=== PATIENT | male | born 1975 | race American Indian/Alaskan Native ===

== ENCOUNTER 2021-08-27 14:09 | Emergency (ER) | payer SELFPAY ==
[2021-08-27] MEDS ORDERED: Sodium Chloride 0.9% 10 ML Syringe FLUSH PRN (14:11)
[2021-08-27] MEDS ORDERED: Sodium Chloride 0.9% 2.5 ML Syringe FLUSH PRN (14:11)
[2021-08-27] MEDS ORDERED: Sodium Chloride 0.9% 1,000 ML IV ONE (14:22)
[2021-08-27] MEDS ORDERED: Ondansetron 4 MG/2 ML SDV IVPUSH ONE (14:23)
[2021-08-27] MEDS ORDERED: Ketorolac 30 MG/ML SDV IVPUSH ONE (14:23)
--- NOTE | 2021-08-27 14:26 | EDM.PDOC ---
ED HPI GENERAL MEDICAL PROBLEM - General Chief Complaint: Chest Pain Stated Complaint: CHEST PAINS Time Seen by Provider: 08/27/21 14:20 Source of Information: Reports: Patient History Limitations: Reports: No Limitations - History of Present Illness INITIAL COMMENTS - FREE TEXT/NARRATIVE: HISTORY AND PHYSICAL: History of present illness: Patient is a 45-year-old male who presents to the emergency room with complaints of nausea, vomiting, diarrhea, chest pain, fevers and body aches over the past 24 hours. He states his temperature prior to arrival was 103 F. He does feel anxious and has a tingling sensation to his fingertips bilaterally. He is fearful he has COVID-19. Chest pain is with taking deep breaths and or coughing. Does not radiate and is not noted at rest. Patient denies any headache, change in vision, syncope or near syncope. Denies any back pain, shortness of breath or cough. Denies any abdominal pain, constipation or dysuria. Has not noted any blood in urine or stool. Patient has not been eating and drinking appropriately today, due to feeling unwell. No recent travel or sick contacts. Review of systems: As per history of present illness and below otherwise all systems reviewed and negative. Past medical history: As per history of present illness and as reviewed below otherwise noncontributory. Surgical history: As per history of present illness and as reviewed below otherwise noncontributory. Social history: See social history for further information Family history: As per history of present illness and as reviewed below otherwise noncontributory. Physical exam: General: Well developed and well nourished 45 year old male. Alert and orientated x 3. Nontoxic in appearance and in no acute distress. Vital signs are stable and have been reviewed by me. Nursing notes were reviewed. HEENT: Atraumatic, normocephalic, pupils equal and reactive bilaterally, negative for conjunctival pallor or scleral icterus, mucous membranes moist, TMs normal bilaterally, throat clear, neck supple, nontender, trachea midline. No drooling or trismus noted. No meningeal signs. No hot potato voice noted. Lungs: Clear to auscultation bilaterally. No wheezes, rales, or rhonchi. Chest nontender. Normal work of breathing, no accessory muscles used. Heart: S1S2, regular rate and rhythm without overt murmur, gallops, or rubs. No JVD. No peripheral edema Abdomen: Soft, nondistended, nontender. Normoactive bowel sounds. Negative for masses or costovertebral tenderness. Skin: Intact, warm, dry. No lesions or rashes noted. Hematologic: No petechiae or purpra. Mucosa appropriate color and normal nail bed color and refill. Extremities: Atraumatic, moves all extremities per self without difficulty or deficits, negative for cords or calf pain. Neurovascular unremarkable. Neuro: Awake, alert, oriented. Cranial nerves II through XII unremarkable. Cerebellum unremarkable. Motor and sensory unremarkable throughout. Exam nonfocal. Psychiatric: Mood and affect are appropriate. Normal thought process. Answering questions appropriately. Please note that the patient was seen and evaluated during the 2019 SARS-CoV-2 novel coronavirus pandemic period. Community viral transmission is ongoing at time of this encounter and the emergency department is operating under pandemic response procedures. Medical Decision Making: Patient is a 45-year-old male who presents to the emergency room with concerns that he has COVID-19. He states he has had nausea and vomiting and is concerned he may also be dehydrated. Does appear clinically dehydrated, will give him IV fluids and basic labs along with COVID-19 testing. CXR findings are suspicious for subtle bilateral pulmonary infiltrates. Serum lab work is unremarkable. I have talked with the patient about today's findings, in addition to providing specific details for plan of care. Patient states he feels much improved after the IV fluids and medications. His vital signs are stable. Reassessment at the time of disposition demonstrates that the patient is in no acute distress. The patient is stable for discharge, counseling was provided and we discussed in great detail signs and symptoms that would prompt them to return to the Emergency Department. Medication, follow up and supportive care measures were reviewed and discussed. Voices understanding and is agreeable to plan of care. Denies any further questions or concerns at this time. Diagnostics: CBC, CMP, Troponin, EKG, CXR, COVID Therapeutics: IV fluids, Zofran, Toradol Prescription: None Impression: COVID-19 Plan: 1. Your COVID-19 screening is positive. That means you do have the coronavirus and you are considered contagious. Your vital signs and oxygen saturation are well enough that you were able to monitor your symptoms at home. Continue to monitor for trouble breathing, new confusion or inability to arouse, bluish lips or face or any of the other symptoms we discussed -if this occurs please return to the emergency room immediately. 2. Please self quarantine until cleared by [facility]. Inform any persons that you have been in contact with since you started becoming symptomatic that you have tested positive; they should be made aware and take the appropriate steps as needed. 3. You can take NyQuil during the evening to help get a restful night sleep. May alternate Tylenol and ibuprofen as needed for pain and fever management. 4. The [facility] will be calling you and following up with you. The [employer] Hotline phone number , They are open Wednesday - Wednesday 7am - 7pm. Follow up with your primary care provider for re-evaluation as directed. Definitive disposition and diagnosis as appropriate pending reevaluation and review of above. chest Pain Score (Numeric/FACES): 8 - Related Data Allergies Allergy/AdvReac Type Severity Reaction Status Date / Time Sulfa (Sulfonamide Allergy Other Verified 08/27/21 14:22 Antibiotics) ED ROS GENERAL - Review of Systems Review Of Systems: Comprehensive ROS is negative, except as noted in HPI. ED EXAM, GENERAL - Physical Exam Exam: See Below (See dictation) Course - Vital Signs Last Recorded V/S: Last Vital Signs Temp 100.4 F 08/27/21 14:18 Pulse 76 08/27/21 16:35 Resp 16 08/27/21 14:18 BP 81/49 L 08/27/21 16:35 Pulse Ox 93 L 08/27/21 16:35 - Orders/Labs/Meds Orders: Active Orders 24 hr Category Date Time Status Saline Lock Insert [OM.PC] Stat Oth 08/27/21 14:11 Ordered Labs: Laboratory Tests 08/27/21 08/27/21 08/27/21 Range/Units 14:17 14:17 15:06 WBC 4.02 (4.0-11.0) K/uL RBC 5.20 (4.50-5.90) M/uL Hgb 13.2 (13.0-17.0) g/dL Hct 40.8 (38.0-50.0) % MCV 78.5 L (80.0-98.0) fL MCH 25.4 L (27.0-32.0) pg MCHC 32.4 (31.0-37.0) g/dL RDW Std Deviation 50.6 (28.0-62.0) fl RDW Coeff of Juve 18 H (11.0-15.0) % Plt Count 135 L (150-400) K/uL MPV 10.80 (7.40-12.00) fL Neut % (Auto) 81.4 H (48.0-80.0) % Lymph % (Auto) 13.7 L (16.0-40.0) % Winkler % (Auto) 4.7 (0.0-15.0) % Eos % (Auto) 0.2 (0.0-7.0) % Baso % (Auto) 0.0 (0.0-1.5) % Neut # (Auto) 3.3 (1.4-5.7) K/uL Lymph # (Auto) 0.6 (0.6-2.4) K/uL Winkler # (Auto) 0.2 (0.0-0.8) K/uL Eos # (Auto) 0.0 (0.0-0.7) K/uL Baso # (Auto) 0.0 (0.0-0.1) K/uL Nucleated RBC % 0.0 /100WBC Nucleated RBCs # 0 K/uL Sodium 137 (136-148) mmol/L Potassium 4.2 (3.5-5.1) mmol/L Chloride 100 (98-107) mmol/L Carbon Dioxide 24.9 (21.0-32.0) mmol/L BUN 17 (7.0-18.0) mg/dL Creatinine 1.4 H (0.8-1.3) mg/dL Est Cr Clr Drug Dosing 71.60 mL/min Estimated GFR (MDRD) 54.3 ml/min Glucose 97 (74-106) mg/dL Calcium 7.7 L (8.5-10.1) mg/dL Total Bilirubin 0.5 (0.2-1.0) mg/dL AST 31 (15-37) IU/L ALT 32 (14-63) IU/L Alkaline Phosphatase 135 H (46-116) U/L Troponin I < 0.050 (0.000-0.056) ng/mL Total Protein 7.4 (6.4-8.2) g/dL Albumin 3.2 L (3.4-5.0) g/dL Globulin 4.2 H (2.6-4.0) g/dL Albumin/Globulin Ratio 0.8 L (0.9-1.6) SARS-CoV-2 RNA (BAKARI) POSITIVE H (NEGATIVE) Meds: Medications Discontinued Medications Generic Name Dose Route Start Last Admin Trade Name Freq PRN Reason Stop Dose Admin Sodium Chloride 1,000 mls @ 999 mls/hr 08/27/21 14:22 08/27/21 14:35 Normal Saline IV 08/27/21 15:22 999 mls/hr STAT ONE Administration Ketorolac Tromethamine 30 mg 08/27/21 14:23 08/27/21 14:35 Ketorolac 30 Mg/Ml Sdv IVPUSH 08/27/21 14:24 30 mg ONETIME ONE Administration Ondansetron HCl 4 mg 08/27/21 14:23 08/27/21 14:35 Ondansetron 4 Mg/2 Ml Sdv IVPUSH 08/27/21 14:24 4 mg ONETIME ONE Administration Sodium Chloride 10 ml 08/27/21 14:11 08/27/21 14:25 Sodium Chloride 0.9% 10 Ml Syringe FLUSH 10 ml ASDIRECTED PRN Administration Keep Vein Open Sodium Chloride 2.5 ml 08/27/21 14:11 08/27/21 14:25 Sodium Chloride 0.9% 2.5 Ml Syringe FLUSH 2.5 ml ASDIRECTED PRN Administration Keep Vein Open Departure - Departure Time of Disposition: 16:02 Disposition: Home, Self-Care 01 Clinical Impression: COVID-19 Instructions: 10 Things You Can Do to Manage Your COVID-19 Symptoms at Home - [facility] (05/23/2021) Referrals: PCP,None [Ordering Only Provider] - Forms: ED Department Discharge Additional Instructions: The following information is given to patients seen in the emergency department who are being discharged to home. This information is to outline your options for follow-up care. We provide all patients seen in our emergency department with a follow-up referral. The need for follow-up, as well as the timing and circumstances, are variable depending upon the specifics of your emergency department visit. If you don't have a primary care physician on staff, we will provide you with a referral. We always advise you to contact your personal physician following an emergency department visit to inform them of the circumstance of the visit and for follow-up with them and/or the need for any referrals to a consulting specialist. The emergency department will also refer you to a specialist when appropriate. This referral assures that you have the opportunity for follow-up care with a specialist. All of these measure are taken in an effort to provide you with optimal care, which includes your follow-up. Under all circumstances we always encourage you to contact your private physician who remains a resource for coordinating your care. When calling for follow-up care, please make the office aware that this follow-up is from your recent emergency room visit. If for any reason you are refused follow-up, please contact the [facility] Emergency Department at and asked to speak to the emergency department charge nurse. [facility] [address] [place] [address] [place] [address] Thank you for choosing the [facility] emergency department in [place] for your medical needs today. It was a pleasure caring for you. Today you were seen in the emergency department for COVID-19 1. Today you were evaluated on an emergent basis. Your chest x-ray shows no evidence of pneumonia. Your cardiac enzymes, blood work and EKG are within normal limits. Your COVID-19 screening is positive. That means you do have the coronavirus and you are considered contagious. Your vital signs and oxygen saturation are well enough that you were able to monitor your symptoms at home. Continue to monitor for trouble breathing, new confusion or inability to arouse, bluish lips or face or any of the other symptoms we discussed -if this occurs please return to the emergency room immediately. 2. Please self quarantine until cleared by [facility]. Inform any persons that you have been in contact with since you started becoming symptom atic that you have tested positive; they should be made aware and take the appropriate steps as needed. 3. You can take NyQuil during the evening to help get a restful night sleep. May alternate Tylenol and ibuprofen as needed for pain and fever management. 4. The [facility] department will be calling you and following up with you. The [employer] Hotline phone number , They are open Wednesday - Wednesday 7am - 7pm. Follow up with your primary care provider for re-evaluation as directed. Sepsis Event Note (ED) - Evaluation Sepsis Screening Result: No Definite Risk - Focused Exam Vital Signs: Vital Signs Temp Pulse Resp BP Pulse Ox 08/27/21 16:35 76 81/49 L 93 L 08/27/21 14:18 100.4 F 81 16 117/77 95 - My Orders Last 24 Hours: My Active Orders 08/27/21 14:11 Saline Lock Insert [OM.PC] Stat - Assessment/Plan Last 24 Hours: My Active Orders 08/27/21 14:11 Saline Lock Insert [OM.PC] Stat
--- NOTE | 2021-08-27 14:38 | PCM.EKG ---
#1 Interpretation EKG Interpretation Comments: EKG performed 08/27/2021 1416 hrs. sinus rhythm heart rate 81 [place] [address] [place] [address] and T. No prior for comparison. Impression normal
--- NOTE | 2021-08-27 14:48 | CR ---
INDICATION: Chest pain. TECHNIQUE: Chest 1 view. COMPARISON: None. FINDINGS: There are faint opacities in the right midlung and left mid to lower lung which could represent subtle infiltrates. No dense consolidation. No pleural effusion or pneumothorax. Normal heart size and pulmonary vascularity. The bones are unremarkable. IMPRESSION: Findings suspicious for subtle bilateral pulmonary infiltrates. Dictated by Denisse Waite MD @ 08/27/2021 2:47:56 PM (Electronically Signed)
[2021-08-27 15:02] LABS: BLOOD UREA NITROGEN,BUN 17 mg/dL (7.0-18.0); CARBON DIOXIDE,CO2 24.9 mmol/L (21.0-32.0); CHLORIDE,CL 100 mmol/L (98-107); GLUCOSE RANDOM 97 mg/dL (74-106); POTASSIUM,K 4.2 mmol/L (3.5-5.1); SODIUM,NA 137 mmol/L (136-148)
== END 2021-08-27 16:30 | disposition home or self-care (01) ==
LOC: MW.ED 14:09
DX: U07.1 COVID-19 (principal); Z88.2 Allergy status to sulfonamides
CPT/HCPCS: 36415; 71045; 80053; 84484; 85025; 87635; 93005; 96374; 96375; 99285; J1885; J2405; J7030; U0002

== ENCOUNTER 2021-08-31 09:24 | Inpatient (IN) | payer SELFPAY ==
[2021-08-31] MEDS ORDERED: Sodium Chloride 0.9% 2.5 ML Syringe FLUSH PRN (09:33)
[2021-08-31] MEDS ORDERED: Dexamethasone 10 MG/ML SDV IVPUSH ONE (09:33)
[2021-08-31] MEDS ORDERED: Sodium Chloride 0.9% 10 ML Syringe FLUSH PRN (09:33)
[2021-08-31] MEDS ORDERED: Albuterol/Ipratropium 3.0-0.5 MG/3 ML Neb Soln NEB ONE (09:38)
[2021-08-31] MEDS ORDERED: REMDESIVIR 200 MG in Sodium Chloride 0.9% 250 ML IV ONE ×2 (09:39→10:00)
--- NOTE | 2021-08-31 09:43 | EDM.PDOC ---
ED HPI GENERAL MEDICAL PROBLEM - General Chief Complaint: Respiratory Problem Stated Complaint: DIFFICULTY BREATHING Time Seen by Provider: 08/31/21 09:30 - History of Present Illness INITIAL COMMENTS - FREE TEXT/NARRATIVE: 45-year-old gentleman history of stroke, [place], asthma, Covid positive since Wednesday presents complaining of shortness of breath. He states that the pain got worse a couple of days ago. He has sharp pain. And his shortness of breath is moderate to severe. Patient has had some vomiting and diarrhea. No exacerbating or alleviating factors - Related Data Allergies Allergy/AdvReac Type Severity Reaction Status Date / Time Sulfa (Sulfonamide Allergy Other Verified 08/31/21 09:37 Antibiotics) Home Meds: Home Meds Asacol Hd Mesalamine 800 mg PO BID 08/31/21 [History] Aspirin [Vazalore] 81 mg PO DAILY 08/31/21 [History] Benzonatate 100 mg PO TID 08/31/21 [History] Clopidogrel [Plavix] 75 mg PO DAILY 08/31/21 [History] Ibuprofen 800 mg PO Q8HR PRN 08/31/21 [History] Levofloxacin [Levaquin] 500 mg PO DAILY 08/31/21 [History] Mirtazapine 30 mg PO BEDTIME 08/31/21 [History] Nitroglycerin [Nitrostat] 0.4 mg SL ASDIRECTED PRN 08/31/21 [History] Pantoprazole [ProTONIX] 40 mg PO DAILY 08/31/21 [History] Venlafaxine [Effexor XR] 37.5 mg PO DAILY 08/31/21 [History] atorvaSTATin [Lipitor] 40 mg PO DAILY 08/31/21 [History] buPROPion HCL [Bupropion HCl Sr] 150 mg PO BID 08/31/21 [History] carvediloL [Carvedilol] 6.25 mg PO BID 08/31/21 [History] lisinopriL [Lisinopril] 10 mg PO DAILY 08/31/21 [History] Past Medical History - Past Surgical History Other Cardiovascular Surgeries/Procedures: history of heart attak Other Neurological Surgeries/Procedures: history of stroke ED ROS GENERAL - Review of Systems Review Of Systems: Unable To Obtain (Limited secondary to clinical condition) Reason Not Obtained: respiratory distress ED EXAM, GENERAL - Physical Exam Exam: See Below Free Text/Narrative:: CONSTITUTIONAL: well appearing in no acute distress O2 saturation 77 and on room airlow SKIN: Warm, dry, and intact without rash HENT: Normocephalic, atraumatic, PULMONARY: Apnea. Good air exchange. No marked wheezing. Plus or minus rales CARDIOVASCULAR: regular rate, No murmur, rubs, or gallops GASTROINTESTINAL: soft, nondistended, nontender NEUROLOGIC: normal speech, II-XII intact. light touch/5/5 power equal and symmetric in upper and lower extremities without deficit MUSCULOSKELETAL: no gross deformities, atraumatic PSYCHIATRIC: normal mood and affect #1 Interpretation EKG Date: 08/31/21 Time: 09:43 EKG Interpretation Comments: EKG: NSR, nonspecific ST/T changes, Rate -85 Course - Vital Signs Text/Narrative:: Differential diagnosis: Covid pneumonia, PE, CHF, DKA, reactive air disease, other Presents with respiratory distress. Patient on CPAP. He was able to be transitioned to high flow nasal cannula. Patient with significant tachypnea and be admitted to the ICU for continued treatment monitoring and respiratory support as needed. CT negative for PE. Patient received Decadron and remdesivir Critical care: I spent 45 minutes of critical care time with this patient not including reportable procedures. There was an acute impairment of an organ system with a high probability of imminent or life threatening deterioration in the patient`s condition. Interventions and changes required in the course of therapy are located in the chart. Time involved was spent in direct patient care, reviewing ancillary data, old records, consulting with decision makers, EMS, other doctors, giving orders and documenting. Last Recorded V/S: Last Vital Signs Temp 38.3 C H 08/31/21 09:24 Pulse 92 08/31/21 11:57 Resp 47 H 08/31/21 11:57 BP 143/85 H 08/31/21 11:57 Pulse Ox 96 08/31/21 11:57 - Orders/Labs/Meds Orders: Active Orders 24 hr Category Date Time Status Admission Status [Patient Status] [ADT] Stat ADT 08/31/21 13:27 Active Patient Status [ADT] Stat ADT 08/31/21 13:29 Active CPAP Adult [RT BiPAP/CPAP] [RC] ASDIRECTED Care 08/31/21 09:38 Active Cardiac Monitoring [RC] . DIRECTED Care 08/31/21 09:34 Active Cardiac Monitoring [RC] . DIRECTED Care 08/31/21 13:29 Active Pulse Oximetry [RC] ASDIRECTED Care 08/31/21 09:34 Active RT Aerosol Therapy [RC] ASDIRECTED Care 08/31/21 09:38 Active BILIRUBIN DIRECT [CHEM] DAILY Lab 09/01/21 09:45 Ordered BILIRUBIN DIRECT [CHEM] DAILY Lab 09/02/21 09:45 Ordered BILIRUBIN DIRECT [CHEM] DAILY Lab 09/03/21 09:45 Ordered BILIRUBIN DIRECT [CHEM] DAILY Lab 09/04/21 09:45 Ordered COMPREHENSIVE METABOLIC PN,CMP [CHEM] DAILY Lab 09/01/21 09:45 Ordered COMPREHENSIVE METABOLIC PN,CMP [CHEM] DAILY Lab 09/02/21 09:45 Ordered COMPREHENSIVE METABOLIC PN,CMP [CHEM] DAILY Lab 09/03/21 09:45 Ordered COMPREHENSIVE METABOLIC PN,CMP [CHEM] DAILY Lab 09/04/21 09:45 Ordered CRP [C-REACTIVE PROTEIN] [CHEM] Stat Lab 08/31/21 09:37 Received CULTURE BLOOD [BC] Stat Lab 08/31/21 09:37 Received CULTURE BLOOD [BC] Stat Lab 08/31/21 09:59 Received UA W/ILYA RFLX IF INDICATED [URIN] Stat Lab 08/31/21 09:35 Ordered Sodium Chloride 0.9% [Normal Saline] 1,000 ml Med 08/31/21 10:07 Active IV STAT Sodium Chloride 0.9% [Saline Flush] Med 08/31/21 09:33 Active 10 ml FLUSH ASDIRECTED PRN Sodium Chloride 0.9% [Saline Flush] Med 08/31/21 09:33 Active 2.5 ml FLUSH ASDIRECTED PRN Blood Culture x2 Reflex Set [OM.PC] Stat Oth 08/31/21 09:35 Ordered Saline Lock Insert [OM.PC] Stat Oth 08/31/21 09:33 Ordered Medication Orders Sodium Chloride (Normal Saline) 1,000 mls @ 10 mls/hr IV STAT STA Stop: 09/04/21 14:06 Last Admin: 08/31/21 10:08 Dose: 10 mls/hr Documented by: GROTALI Sodium Chloride (Sodium Chloride 0.9% 10 Ml Syringe) 10 ml FLUSH ASDIRECTED PRN PRN Reason: Keep Vein Open Last Admin: 08/31/21 09:49 Dose: 10 ml Documented by: MINI Sodium Chloride (Sodium Chloride 0.9% 2.5 Ml Syringe) 2.5 ml FLUSH ASDIRECTED PRN PRN Reason: Keep Vein Open Last Admin: 08/31/21 09:49 Dose: 2.5 ml Documented by: MINI Labs: Laboratory Tests 08/31/21 08/31/21 08/31/21 Range/Units 09:37 09:37 09:37 WBC 4.87 (4.0-11.0) K/uL RBC 4.97 (4.50-5.90) M/uL Hgb 12.7 L (13.0-17.0) g/dL Hct 38.5 (38.0-50.0) % MCV 77.5 L (80.0-98.0) fL MCH 25.6 L (27.0-32.0) pg MCHC 33.0 (31.0-37.0) g/dL RDW Std Deviation 49.9 (28.0-62.0) fl RDW Coeff of Juve 18 H (11.0-15.0) % Plt Count 160 (150-400) K/uL MPV 10.40 (7.40-12.00) fL Neut % (Auto) 85.5 H (48.0-80.0) % Lymph % (Auto) 9.0 L (16.0-40.0) % [place] % (Auto) 5.5 (0.0-15.0) % Eos % (Auto) 0.0 (0.0-7.0) % Baso % (Auto) 0.0 (0.0-1.5) % Neut # (Auto) 4.2 (1.4-5.7) K/uL Lymph # (Auto) 0.4 L (0.6-2.4) K/uL [place] # (Auto) 0.3 (0.0-0.8) K/uL Eos # (Auto) 0.0 (0.0-0.7) K/uL Baso # (Auto) 0.0 (0.0-0.1) K/uL Nucleated RBC % 0.0 /100WBC Nucleated RBCs # 0 K/uL INR APTT (18.6-31.3) SEC D-Dimer, Quantitative (0.0-0.50) mg/L FEU VBG pH 7.41 (7.31-7.41) VBG pCO2 38 L (41-51) mmHG VBG pO2 < 30 mmHG VBG HCO3 24 (23-28) mEq/L VBG Total CO2 22 L (24-29) mmol/L VBG Base Excess -0.3 (-2.0-3.0) Sodium 136 (136-148) mmol/L Potassium 4.1 (3.5-5.1) mmol/L Chloride 101 (98-107) mmol/L Carbon Dioxide 23.8 (21.0-32.0) mmol/L BUN 16 (7.0-18.0) mg/dL Creatinine 1.2 (0.8-1.3) mg/dL Est Cr Clr Drug Dosing 83.53 mL/min Estimated GFR (MDRD) > 60.0 ml/min Glucose 103 (74-106) mg/dL Lactic Acid (0.4-2.0) mmol/L Calcium 8.2 L (8.5-10.1) mg/dL Total Bilirubin 0.4 (0.2-1.0) mg/dL Direct Bilirubin 0.20 (0.0-0.5) mg/dL AST 54 H (15-37) IU/L ALT 70 H (14-63) IU/L Alkaline Phosphatase 159 H (46-116) U/L Troponin I < 0.050 (0.000-0.056) ng/mL B-Natriuretic Peptide (<100) PG/ML Total Protein 7.8 (6.4-8.2) g/dL Albumin 2.6 L (3.4-5.0) g/dL Globulin 5.2 H (2.6-4.0) g/dL Albumin/Globulin Ratio 0.5 L (0.9-1.6) Lipase 340 (73-393) U/L 08/31/21 08/31/21 08/31/21 Range/Units 09:37 09:37 09:37 WBC (4.0-11.0) K/uL RBC (4.50-5.90) M/uL Hgb (13.0-17.0) g/dL Hct (38.0-50.0) % MCV (80.0-98.0) fL MCH (27.0-32.0) pg MCHC (31.0-37.0) g/dL RDW Std Deviation (28.0-62.0) fl RDW Coeff of Juve (11.0-15.0) % Plt Count (150-400) K/uL MPV (7.40-12.00) fL Neut % (Auto) (48.0-80.0) % Lymph % (Auto) (16.0-40.0) % [place] % (Auto) (0.0-15.0) % Eos % (Auto) (0.0-7.0) % Baso % (Auto) (0.0-1.5) % Neut # (Auto) (1.4-5.7) K/uL Lymph # (Auto) (0.6-2.4) K/uL [place] # (Auto) (0.0-0.8) K/uL Eos # (Auto) (0.0-0.7) K/uL Baso # (Auto) (0.0-0.1) K/uL Nucleated RBC % /100WBC Nucleated RBCs # K/uL INR 1.04 APTT 29.0 (18.6-31.3) SEC D-Dimer, Quantitative 1.68 H (0.0-0.50) mg/L FEU VBG pH (7.31-7.41) VBG pCO2 (41-51) mmHG VBG pO2 mmHG VBG HCO3 (23-28) mEq/L VBG Total CO2 (24-29) mmol/L VBG Base Excess (-2.0-3.0) Sodium (136-148) mmol/L Potassium (3.5-5.1) mmol/L Chloride (98-107) mmol/L Carbon Dioxide (21.0-32.0) mmol/L BUN (7.0-18.0) mg/dL Creatinine (0.8-1.3) mg/dL Est Cr Clr Drug Dosing mL/min Estimated GFR (MDRD) ml/min Glucose (74-106) mg/dL Lactic Acid 1.4 (0.4-2.0) mmol/L Calcium (8.5-10.1) mg/dL Total Bilirubin (0.2-1.0) mg/dL Direct Bilirubin (0.0-0.5) mg/dL AST (15-37) IU/L ALT (14-63) IU/L Alkaline Phosphatase (46-116) U/L Troponin I (0.000-0.056) ng/mL B-Natriuretic Peptide 15 (<100) PG/ML Total Protein (6.4-8.2) g/dL Albumin (3.4-5.0) g/dL Globulin (2.6-4.0) g/dL Albumin/Globulin Ratio (0.9-1.6) Lipase (73-393) U/L Meds: Medications Generic Name Dose Route Start Last Admin Trade Name Freq PRN Reason Stop Dose Admin Sodium Chloride 1,000 mls @ 10 mls/hr 08/31/21 10:07 08/31/21 10:08 Normal Saline IV 09/04/21 14:06 10 mls/hr STAT STA Administration Sodium Chloride 10 ml 08/31/21 09:33 08/31/21 09:49 Sodium Chloride 0.9% 10 Ml Syringe FLUSH 10 ml ASDIRECTED PRN Administration Keep Vein Open Sodium Chloride 2.5 ml 08/31/21 09:33 08/31/21 09:49 Sodium Chloride 0.9% 2.5 Ml Syringe FLUSH 2.5 ml ASDIRECTED PRN Administration Keep Vein Open Discontinued Medications Generic Name Dose Route Start Last Admin Trade Name Freq PRN Reason Stop Dose Admin Albuterol/Ipratropium 6 ml 08/31/21 09:38 08/31/21 09:49 Albuterol/Ipratropium 3.0-0.5 Mg/3 Ml Neb Soln NEB 08/31/21 09:39 6 ml ONETIME ONE Administration Dexamethasone 10 mg 08/31/21 09:33 08/31/21 09:49 Dexamethasone 10 Mg/Ml Sdv IVPUSH 08/31/21 09:34 10 mg ONETIME ONE Administration Remdesivir 200 mg/ Sodium 250 mls @ 250 mls/hr 08/31/21 09:39 08/31/21 10:18 Chloride IV 08/31/21 09:40 Not Given ONETIME ONE Remdesivir 200 mg/ Sodium 250 mls @ 250 mls/hr 08/31/21 10:00 08/31/21 10:16 Chloride IV 08/31/21 10:59 250 mls/hr ONETIME ONE Administration Iopamidol 100 ml 08/31/21 12:17 08/31/21 12:18 Iopamidol 755 Mg/Ml 500 Ml Multipack Bottle IVPUSH 08/31/21 12:18 100 ml ONETIME ONE Administration Lorazepam 0.5 mg 08/31/21 09:54 08/31/21 10:05 Lorazepam 2 Mg/Ml Sdv IVPUSH 08/31/21 09:55 0.5 mg ONETIME ONE Administration Ondansetron HCl Confirm 08/31/21 09:45 08/31/21 09:48 Ondansetron 4 Mg/2 Ml Sdv Administered 08/31/21 09:46 Not Given Dose 4 mg .ROUTE .STK-MED ONE Ondansetron HCl 4 mg 08/31/21 09:49 08/31/21 09:50 Ondansetron 4 Mg/2 Ml Sdv IVPUSH 08/31/21 09:50 4 mg ONETIME ONE Administration Departure - Departure Time of Disposition: 13:32 Disposition: Admitted As Inpatient 64 Condition: Poor Clinical Impression: Pneumonia due to COVID-19 virus - Discharge Information Forms: ED Department Discharge Sepsis Event Note (ED) - Evaluation Sepsis Screening Result: No Definite Risk - Focused Exam Vital Signs: Vital Signs Temp Pulse Resp BP Pulse Ox 08/31/21 11:57 92 47 H 143/85 H 96 08/31/21 11:27 90 48 H 128/81 97 08/31/21 10:21 90 49 H 132/83 96 08/31/21 09:56 81 50 H 137/75 08/31/21 09:24 38.3 C H 88 44 H 133/84 74 L - My Orders Last 24 Hours: My Active Orders 08/31/21 09:33 Sodium Chloride 0.9% [Saline Flush] 10 ml FLUSH ASDIRECTED PRN Sodium Chloride 0.9% [Saline Flush] 2.5 ml FLUSH ASDIRECTED PRN Saline Lock Insert [OM.PC] Stat 08/31/21 09:34 Cardiac Monitoring [RC] . DIRECTED Pulse Oximetry [RC] ASDIRECTED 08/31/21 09:35 UA W/ILYA RFLX IF INDICATED [URIN] Stat Blood Culture x2 Reflex Set [OM.PC] Stat 08/31/21 09:37 CRP [C-REACTIVE PROTEIN] [CHEM] Stat CULTURE BLOOD [BC] Stat 08/31/21 09:38 CPAP Adult [RT BiPAP/CPAP] [RC] ASDIRECTED RT Aerosol Therapy [RC] ASDIRECTED 08/31/21 09:59 CULTURE BLOOD [BC] Stat 08/31/21 10:07 Sodium Chloride 0.9% [Normal Saline] 1,000 ml IV STAT 08/31/21 13:27 Admission Status [Patient Status] [ADT] Stat 08/31/21 13:29 Patient Status [ADT] Stat Cardiac Monitoring [RC] . DIRECTED 09/01/21 09:45 BILIRUBIN DIRECT [CHEM] DAILY COMPREHENSIVE METABOLIC PN,CMP [CHEM] DAILY 09/02/21 09:45 BILIRUBIN DIRECT [CHEM] DAILY COMPREHENSIVE METABOLIC PN,CMP [CHEM] DAILY 09/03/21 09:45 BILIRUBIN DIRECT [CHEM] DAILY COMPREHENSIVE METABOLIC PN,CMP [CHEM] DAILY 09/04/21 09:45 BILIRUBIN DIRECT [CHEM] DAILY COMPREHENSIVE METABOLIC PN,CMP [CHEM] DAILY - Assessment/Plan Last 24 Hours: My Active Orders 08/31/21 09:33 Sodium Chloride 0.9% [Saline Flush] 10 ml FLUSH ASDIRECTED PRN Sodium Chloride 0.9% [Saline Flush] 2.5 ml FLUSH ASDIRECTED PRN Saline Lock Insert [OM.PC] Stat 08/31/21 09:34 Cardiac Monitoring [RC] . DIRECTED Pulse Oximetry [RC] ASDIRECTED 08/31/21 09:35 UA W/ILYA RFLX IF INDICATED [URIN] Stat Blood Culture x2 Reflex Set [OM.PC] Stat 08/31/21 09:37 CRP [C-REACTIVE PROTEIN] [CHEM] Stat CULTURE BLOOD [BC] Stat 08/31/21 09:38 CPAP Adult [RT BiPAP/CPAP] [RC] ASDIRECTED RT Aerosol Therapy [RC] ASDIRECTED 08/31/21 09:59 CULTURE BLOOD [BC] Stat 08/31/21 10:07 Sodium Chloride 0.9% [Normal Saline] 1,000 ml IV STAT 08/31/21 13:27 Admission Status [Patient Status] [ADT] Stat 08/31/21 13:29 Patient Status [ADT] Stat Cardiac Monitoring [RC] . DIRECTED 09/01/21 09:45 BILIRUBIN DIRECT [CHEM] DAILY COMPREHENSIVE METABOLIC PN,CMP [CHEM] DAILY 09/02/21 09:45 BILIRUBIN DIRECT [CHEM] DAILY COMPREHENSIVE METABOLIC PN,CMP [CHEM] DAILY 09/03/21 09:45 BILIRUBIN DIRECT [CHEM] DAILY COMPREHENSIVE METABOLIC PN,CMP [CHEM] DAILY 09/04/21 09:45 BILIRUBIN DIRECT [CHEM] DAILY COMPREHENSIVE METABOLIC PN,CMP [CHEM] DAILY
[2021-08-31] MEDS ORDERED: Ondansetron 4 MG/2 ML SDV ONE (09:45)
[2021-08-31] MEDS ORDERED: Ondansetron 4 MG/2 ML SDV IVPUSH ONE (09:49)
[2021-08-31] MEDS ORDERED: LORazepam 2 MG/ML SDV IVPUSH ONE (09:54)
[2021-08-31 10:06] LABS: BLOOD UREA NITROGEN,BUN 16 mg/dL (7.0-18.0); CARBON DIOXIDE,CO2 23.8 mmol/L (21.0-32.0); CHLORIDE,CL 101 mmol/L (98-107); GLUCOSE RANDOM 103 mg/dL (74-106); LIPASE 340 U/L (73-393); POTASSIUM,K 4.1 mmol/L (3.5-5.1); SODIUM,NA 136 mmol/L (136-148)
[2021-08-31] MEDS ORDERED: Sodium Chloride 0.9% 1,000 ML IV STA (10:07)
--- NOTE | 2021-08-31 10:37 | CR ---
INDICATION: Chest pain TECHNIQUE: Chest 1 view. COMPARISON: Chest x-ray 08/27/2021 FINDINGS: Heart is normal in size. Pulmonary vasculature is within normal limits. Possible subtle bilateral opacities. Negative for pleural effusion or pneumothorax. Bones are unremarkable. IMPRESSION: Stable chest with possible subtle bilateral opacities. Dictated by Cristy Urban MD @ 08/31/2021 10:35:26 AM (Electronically Signed)
[2021-08-31] MEDS ORDERED: Iopamidol 755 MG/ML 500 ML Multipack Bottle IVPUSH ONE (12:17)
--- NOTE | 2021-08-31 12:46 | CT ---
Indication: COVID shortness of breath Technique: Contrast enhanced CT PE. 100 mL Isovue 370 Comparison: No comparison Findings: Normal caliber thoracic aorta. Significant respiratory motion limits evaluation of distal pulmonary arteries. No central or proximal pulmonary emboli. Heart size normal bilateral diffuse ground-glass parenchymal consolidation dense consolidation in the lower lobes. Cholelithiasis. Impression: 1. Significant respiratory motion. No central or proximal pulmonary emboli. 2. Diffuse patchy ground-glass and parenchymal consolidation most likely reflecting COVID. Please note that all CT scans at this facility use dose modulation, iterative reconstruction, and/or weight-based dosing when appropriate to reduce radiation dose to as low as reasonably achievable. Dictated by Stefanie Ponce MD @ 08/31/2021 12:44:57 PM (Electronically Signed)
[2021-08-31] MEDS ORDERED: Acetaminophen 325 MG Tab PO PRN (15:43)
--- NOTE | 2021-08-31 16:09 | PCM.PN ---
- General Info Date of Service: 08/31/21 - Review of Systems Systems Review Comment:: 45 yo male with pmh of CAD who presents with complaints of shortness of breath, cough and fevers for past week. In the ED he was noted to be satting low 80s on room air and was placed on CPAP initially and then on heated high flow NC. CT scan of chest reported patchy bilateral ground glass opacities. - Patient Data Vitals - Most Recent: Last Vital Signs Temp 38.3 C H 08/31/21 09:24 Pulse 92 08/31/21 11:57 Resp 47 H 08/31/21 11:57 BP 143/85 H 08/31/21 11:57 Pulse Ox 96 08/31/21 11:57 Weight - Most Recent: 95.254 kg Lab Results Last 24 Hours: Laboratory Results - last 24 hr 08/31/21 08/31/21 08/31/21 Range/Units 09:37 09:37 09:37 WBC 4.87 (4.0-11.0) K/uL RBC 4.97 (4.50-5.90) M/uL Hgb 12.7 L (13.0-17.0) g/dL Hct 38.5 (38.0-50.0) % MCV 77.5 L (80.0-98.0) fL MCH 25.6 L (27.0-32.0) pg MCHC 33.0 (31.0-37.0) g/dL RDW Std Deviation 49.9 (28.0-62.0) fl RDW Coeff of Juve 18 H (11.0-15.0) % Plt Count 160 (150-400) K/uL MPV 10.40 (7.40-12.00) fL Neut % (Auto) 85.5 H (48.0-80.0) % Lymph % (Auto) 9.0 L (16.0-40.0) % [place] % (Auto) 5.5 (0.0-15.0) % Eos % (Auto) 0.0 (0.0-7.0) % Baso % (Auto) 0.0 (0.0-1.5) % Neut # (Auto) 4.2 (1.4-5.7) K/uL Lymph # (Auto) 0.4 L (0.6-2.4) K/uL [place] # (Auto) 0.3 (0.0-0.8) K/uL Eos # (Auto) 0.0 (0.0-0.7) K/uL Baso # (Auto) 0.0 (0.0-0.1) K/uL Nucleated RBC % 0.0 /100WBC Nucleated RBCs # 0 K/uL INR APTT (18.6-31.3) SEC D-Dimer, Quantitative (0.0-0.50) mg/L FEU VBG pH 7.41 (7.31-7.41) VBG pCO2 38 L (41-51) mmHG VBG pO2 < 30 mmHG VBG HCO3 24 (23-28) mEq/L VBG Total CO2 22 L (24-29) mmol/L VBG Base Excess -0.3 (-2.0-3.0) Sodium 136 (136-148) mmol/L Potassium 4.1 (3.5-5.1) mmol/L Chloride 101 (98-107) mmol/L Carbon Dioxide 23.8 (21.0-32.0) mmol/L BUN 16 (7.0-18.0) mg/dL Creatinine 1.2 (0.8-1.3) mg/dL Est Cr Clr Drug Dosing 83.53 mL/min Estimated GFR (MDRD) > 60.0 ml/min Glucose 103 (74-106) mg/dL Lactic Acid (0.4-2.0) mmol/L Calcium 8.2 L (8.5-10.1) mg/dL Total Bilirubin 0.4 (0.2-1.0) mg/dL Direct Bilirubin 0.20 (0.0-0.5) mg/dL AST 54 H (15-37) IU/L ALT 70 H (14-63) IU/L Alkaline Phosphatase 159 H (46-116) U/L Troponin I < 0.050 (0.000-0.056) ng/mL C-Reactive Protein (0.00-0.90) mg/dL B-Natriuretic Peptide (<100) PG/ML Total Protein 7.8 (6.4-8.2) g/dL Albumin 2.6 L (3.4-5.0) g/dL Globulin 5.2 H (2.6-4.0) g/dL Albumin/Globulin Ratio 0.5 L (0.9-1.6) Lipase 340 (73-393) U/L Group A Strep (PCR) (NOT DETECT) 08/31/21 08/31/21 08/31/21 Range/Units 09:37 09:37 09:37 WBC (4.0-11.0) K/uL RBC (4.50-5.90) M/uL Hgb (13.0-17.0) g/dL Hct (38.0-50.0) % MCV (80.0-98.0) fL MCH (27.0-32.0) pg MCHC (31.0-37.0) g/dL RDW Std Deviation (28.0-62.0) fl RDW Coeff of Juve (11.0-15.0) % Plt Count (150-400) K/uL MPV (7.40-12.00) fL Neut % (Auto) (48.0-80.0) % Lymph % (Auto) (16.0-40.0) % [place] % (Auto) (0.0-15.0) % Eos % (Auto) (0.0-7.0) % Baso % (Auto) (0.0-1.5) % Neut # (Auto) (1.4-5.7) K/uL Lymph # (Auto) (0.6-2.4) K/uL [place] # (Auto) (0.0-0.8) K/uL Eos # (Auto) (0.0-0.7) K/uL Baso # (Auto) (0.0-0.1) K/uL Nucleated RBC % /100WBC Nucleated RBCs # K/uL INR 1.04 APTT 29.0 (18.6-31.3) SEC D-Dimer, Quantitative 1.68 H (0.0-0.50) mg/L FEU VBG pH (7.31-7.41) VBG pCO2 (41-51) mmHG VBG pO2 mmHG VBG HCO3 (23-28) mEq/L VBG Total CO2 (24-29) mmol/L VBG Base Excess (-2.0-3.0) Sodium (136-148) mmol/L Potassium (3.5-5.1) mmol/L Chloride (98-107) mmol/L Carbon Dioxide (21.0-32.0) mmol/L BUN (7.0-18.0) mg/dL Creatinine (0.8-1.3) mg/dL Est Cr Clr Drug Dosing mL/min Estimated GFR (MDRD) ml/min Glucose (74-106) mg/dL Lactic Acid 1.4 (0.4-2.0) mmol/L Calcium (8.5-10.1) mg/dL Total Bilirubin (0.2-1.0) mg/dL Direct Bilirubin (0.0-0.5) mg/dL AST (15-37) IU/L ALT (14-63) IU/L Alkaline Phosphatase (46-116) U/L Troponin I (0.000-0.056) ng/mL C-Reactive Protein (0.00-0.90) mg/dL B-Natriuretic Peptide 15 (<100) PG/ML Total Protein (6.4-8.2) g/dL Albumin (3.4-5.0) g/dL Globulin (2.6-4.0) g/dL Albumin/Globulin Ratio (0.9-1.6) Lipase (73-393) U/L Group A Strep (PCR) (NOT DETECT) 08/31/21 08/31/21 Range/Units 09:37 13:05 WBC (4.0-11.0) K/uL RBC (4.50-5.90) M/uL Hgb (13.0-17.0) g/dL Hct (38.0-50.0) % MCV (80.0-98.0) fL MCH (27.0-32.0) pg MCHC (31.0-37.0) g/dL RDW Std Deviation (28.0-62.0) fl RDW Coeff of Juve (11.0-15.0) % Plt Count (150-400) K/uL MPV (7.40-12.00) fL Neut % (Auto) (48.0-80.0) % Lymph % (Auto) (16.0-40.0) % [place] % (Auto) (0.0-15.0) % Eos % (Auto) (0.0-7.0) % Baso % (Auto) (0.0-1.5) % Neut # (Auto) (1.4-5.7) K/uL Lymph # (Auto) (0.6-2.4) K/uL [place] # (Auto) (0.0-0.8) K/uL Eos # (Auto) (0.0-0.7) K/uL Baso # (Auto) (0.0-0.1) K/uL Nucleated RBC % /100WBC Nucleated RBCs # K/uL INR APTT (18.6-31.3) SEC D-Dimer, Quantitative (0.0-0.50) mg/L FEU VBG pH (7.31-7.41) VBG pCO2 (41-51) mmHG VBG pO2 mmHG VBG HCO3 (23-28) mEq/L VBG Total CO2 (24-29) mmol/L VBG Base Excess (-2.0-3.0) Sodium (136-148) mmol/L Potassium (3.5-5.1) mmol/L Chloride (98-107) mmol/L Carbon Dioxide (21.0-32.0) mmol/L BUN (7.0-18.0) mg/dL Creatinine (0.8-1.3) mg/dL Est Cr Clr Drug Dosing mL/min Estimated GFR (MDRD) ml/min Glucose (74-106) mg/dL Lactic Acid (0.4-2.0) mmol/L Calcium (8.5-10.1) mg/dL Total Bilirubin (0.2-1.0) mg/dL Direct Bilirubin (0.0-0.5) mg/dL AST (15-37) IU/L ALT (14-63) IU/L Alkaline Phosphatase (46-116) U/L Troponin I (0.000-0.056) ng/mL C-Reactive Protein 17.50 H (0.00-0.90) mg/dL B-Natriuretic Peptide (<100) PG/ML Total Protein (6.4-8.2) g/dL Albumin (3.4-5.0) g/dL Globulin (2.6-4.0) g/dL Albumin/Globulin Ratio (0.9-1.6) Lipase (73-393) U/L Group A Strep (PCR) NOT DETECTED (NOT DETECT) Med Orders - Current: Current Medications Acetaminophen (Acetaminophen 325 Mg Tab) 650 mg PO Q4H PRN PRN Reason: Pain (Mild 1-3)/fever Atorvastatin Calcium (Atorvastatin 40 Mg Tab) 40 mg PO DAILY RICHI Baricitinib (Baricitinib 2 Mg Tab) 4 mg PO DAILY [facility] Carvedilol (Carvedilol 6.25 Mg Tab) 6.25 mg PO BID RICHI Clopidogrel Bisulfate (Clopidogrel 75 Mg Tab) 75 mg PO DAILY RICHI Dexamethasone (Dexamethasone 4 Mg Tab) 6 mg PO DAILY [facility] Enoxaparin Sodium (Enoxaparin 40 Mg/0.4 Ml Syringe) 40 mg SUBCUT Q24H RICHI Sodium Chloride (Normal Saline) 1,000 mls @ 10 mls/hr IV STAT STA Stop: 09/04/21 14:06 Last Admin: 08/31/21 10:08 Dose: 10 mls/hr Documented by: Remdesivir 100 mg/ Sodium (Chloride) 100 mls @ 100 mls/hr IV Q24H RICHI Stop: 09/04/21 09:59 Lisinopril (Lisinopril 10 Mg Tab) 10 mg PO DAILY [facility] Non-Formulary Medication (Bupropion Hcl [Bupropion Hcl Sr]) 150 mg PO BID [facility] Non-Formulary Medication (Aspirin [Vazalore]) 81 mg PO DAILY [facility] Non-Formulary Medication (Mirtazapine) 30 mg PO BEDTIME RICHI Pantoprazole Sodium (Pantoprazole 40 Mg Tab.Cr) 40 mg PO DAILY [facility] Sodium Chloride (Sodium Chloride 0.9% 10 Ml Syringe) 10 ml FLUSH ASDIRECTED PRN PRN Reason: Keep Vein Open Last Admin: 08/31/21 09:49 Dose: 10 ml Documented by: Sodium Chloride (Sodium Chloride 0.9% 2.5 Ml Syringe) 2.5 ml FLUSH ASDIRECTED PRN PRN Reason: Keep Vein Open Last Admin: 08/31/21 09:49 Dose: 2.5 ml Documented by: Venlafaxine HCl (Venlafaxine 37.5 Mg Cap.Er) 37.5 mg PO DAILY [facility] Discontinued Medications Albuterol/Ipratropium (Albuterol/Ipratropium 3.0-0.5 Mg/3 Ml Neb Soln) 6 ml NEB ONETIME ONE Stop: 08/31/21 09:39 Last Admin: 08/31/21 09:49 Dose: 6 ml Documented by: Dexamethasone (Dexamethasone 10 Mg/Ml Sdv) 10 mg IVPUSH ONETIME ONE Stop: 08/31/21 09:34 Last Admin: 08/31/21 09:49 Dose: 10 mg Documented by: Remdesivir 200 mg/ Sodium (Chloride) 250 mls @ 250 mls/hr IV ONETIME ONE Stop: 08/31/21 09:40 Last Admin: 08/31/21 10:18 Dose: Not Given Documented by: Remdesivir 200 mg/ Sodium (Chloride) 250 mls @ 250 mls/hr IV ONETIME ONE Stop: 08/31/21 10:59 Last Admin: 08/31/21 10:16 Dose: 250 mls/hr Documented by: Iopamidol (Iopamidol 755 Mg/Ml 500 Ml Multipack Bottle) 100 ml IVPUSH ONETIME ONE Stop: 08/31/21 12:18 Last Admin: 08/31/21 12:18 Dose: 100 ml Documented by: Lorazepam (Lorazepam 2 Mg/Ml Sdv) 0.5 mg IVPUSH ONETIME ONE Stop: 08/31/21 09:55 Last Admin: 08/31/21 10:05 Dose: 0.5 mg Documented by: Ondansetron HCl (Ondansetron 4 Mg/2 Ml Sdv) Confirm Administered Dose 4 mg .ROUTE .STK-MED ONE Stop: 08/31/21 09:46 Last Admin: 08/31/21 09:48 Dose: Not Given Documented by: Ondansetron HCl (Ondansetron 4 Mg/2 Ml Sdv) 4 mg IVPUSH ONETIME ONE Stop: 08/31/21 09:50 Last Admin: 08/31/21 09:50 Dose: 4 mg Documented by: - Exam General: Alert, Oriented Neck: Supple Lungs: Clear to Auscultation, Normal Respiratory Effort Cardiovascular: Regular Rate, Regular Rhythm GI/Abdominal Exam: Soft, Non-Tender, No Distention Extremities: Non-Tender, No Pedal Edema Skin: Warm, Dry, Intact Neurological: No New Focal Deficit - Patient Data Lab Results Last 24 hrs: Laboratory Results - last 24 hr 08/31/21 08/31/21 08/31/21 Range/Units 09:37 09:37 09:37 WBC 4.87 (4.0-11.0) K/uL RBC 4.97 (4.50-5.90) M/uL Hgb 12.7 L (13.0-17.0) g/dL Hct 38.5 (38.0-50.0) % MCV 77.5 L (80.0-98.0) fL MCH 25.6 L (27.0-32.0) pg MCHC 33.0 (31.0-37.0) g/dL RDW Std Deviation 49.9 (28.0-62.0) fl RDW Coeff of Juve 18 H (11.0-15.0) % Plt Count 160 (150-400) K/uL MPV 10.40 (7.40-12.00) fL Neut % (Auto) 85.5 H (48.0-80.0) % Lymph % (Auto) 9.0 L (16.0-40.0) % [place] % (Auto) 5.5 (0.0-15.0) % Eos % (Auto) 0.0 (0.0-7.0) % Baso % (Auto) 0.0 (0.0-1.5) % Neut # (Auto) 4.2 (1.4-5.7) K/uL Lymph # (Auto) 0.4 L (0.6-2.4) K/uL [place] # (Auto) 0.3 (0.0-0.8) K/uL Eos # (Auto) 0.0 (0.0-0.7) K/uL Baso # (Auto) 0.0 (0.0-0.1) K/uL Nucleated RBC % 0.0 /100WBC Nucleated RBCs # 0 K/uL INR APTT (18.6-31.3) SEC D-Dimer, Quantitative (0.0-0.50) mg/L FEU VBG pH 7.41 (7.31-7.41) VBG pCO2 38 L (41-51) mmHG VBG pO2 < 30 mmHG VBG HCO3 24 (23-28) mEq/L VBG Total CO2 22 L (24-29) mmol/L VBG Base Excess -0.3 (-2.0-3.0) Sodium 136 (136-148) mmol/L Potassium 4.1 (3.5-5.1) mmol/L Chloride 101 (98-107) mmol/L Carbon Dioxide 23.8 (21.0-32.0) mmol/L BUN 16 (7.0-18.0) mg/dL Creatinine 1.2 (0.8-1.3) mg/dL Est Cr Clr Drug Dosing 83.53 mL/min Estimated GFR (MDRD) > 60.0 ml/min Glucose 103 (74-106) mg/dL Lactic Acid (0.4-2.0) mmol/L Calcium 8.2 L (8.5-10.1) mg/dL Total Bilirubin 0.4 (0.2-1.0) mg/dL Direct Bilirubin 0.20 (0.0-0.5) mg/dL AST 54 H (15-37) IU/L ALT 70 H (14-63) IU/L Alkaline Phosphatase 159 H (46-116) U/L Troponin I < 0.050 (0.000-0.056) ng/mL C-Reactive Protein (0.00-0.90) mg/dL B-Natriuretic Peptide (<100) PG/ML Total Protein 7.8 (6.4-8.2) g/dL Albumin 2.6 L (3.4-5.0) g/dL Globulin 5.2 H (2.6-4.0) g/dL Albumin/Globulin Ratio 0.5 L (0.9-1.6) Lipase 340 (73-393) U/L Group A Strep (PCR) (NOT DETECT) 08/31/21 08/31/21 08/31/21 Range/Units 09:37 09:37 09:37 WBC (4.0-11.0) K/uL RBC (4.50-5.90) M/uL Hgb (13.0-17.0) g/dL Hct (38.0-50.0) % MCV (80.0-98.0) fL MCH (27.0-32.0) pg MCHC (31.0-37.0) g/dL RDW Std Deviation (28.0-62.0) fl RDW Coeff of Juve (11.0-15.0) % Plt Count (150-400) K/uL MPV (7.40-12.00) fL Neut % (Auto) (48.0-80.0) % Lymph % (Auto) (16.0-40.0) % [place] % (Auto) (0.0-15.0) % Eos % (Auto) (0.0-7.0) % Baso % (Auto) (0.0-1.5) % Neut # (Auto) (1.4-5.7) K/uL Lymph # (Auto) (0.6-2.4) K/uL [place] # (Auto) (0.0-0.8) K/uL Eos # (Auto) (0.0-0.7) K/uL Baso # (Auto) (0.0-0.1) K/uL Nucleated RBC % /100WBC Nucleated RBCs # K/uL INR 1.04 APTT 29.0 (18.6-31.3) SEC D-Dimer, Quantitative 1.68 H (0.0-0.50) mg/L FEU VBG pH (7.31-7.41) VBG pCO2 (41-51) mmHG VBG pO2 mmHG VBG HCO3 (23-28) mEq/L VBG Total CO2 (24-29) mmol/L VBG Base Excess (-2.0-3.0) Sodium (136-148) mmol/L Potassium (3.5-5.1) mmol/L Chloride (98-107) mmol/L Carbon Dioxide (21.0-32.0) mmol/L BUN (7.0-18.0) mg/dL Creatinine (0.8-1.3) mg/dL Est Cr Clr Drug Dosing mL/min Estimated GFR (MDRD) ml/min Glucose (74-106) mg/dL Lactic Acid 1.4 (0.4-2.0) mmol/L Calcium (8.5-10.1) mg/dL Total Bilirubin (0.2-1.0) mg/dL Direct Bilirubin (0.0-0.5) mg/dL AST (15-37) IU/L ALT (14-63) IU/L Alkaline Phosphatase (46-116) U/L Troponin I (0.000-0.056) ng/mL C-Reactive Protein (0.00-0.90) mg/dL B-Natriuretic Peptide 15 (<100) PG/ML Total Protein (6.4-8.2) g/dL Albumin (3.4-5.0) g/dL Globulin (2.6-4.0) g/dL Albumin/Globulin Ratio (0.9-1.6) Lipase (73-393) U/L Group A Strep (PCR) (NOT DETECT) 08/31/21 08/31/21 Range/Units 09:37 13:05 WBC (4.0-11.0) K/uL RBC (4.50-5.90) M/uL Hgb (13.0-17.0) g/dL Hct (38.0-50.0) % MCV (80.0-98.0) fL MCH (27.0-32.0) pg MCHC (31.0-37.0) g/dL RDW Std Deviation (28.0-62.0) fl RDW Coeff of Juve (11.0-15.0) % Plt Count (150-400) K/uL MPV (7.40-12.00) fL Neut % (Auto) (48.0-80.0) % Lymph % (Auto) (16.0-40.0) % [place] % (Auto) (0.0-15.0) % Eos % (Auto) (0.0-7.0) % Baso % (Auto) (0.0-1.5) % Neut # (Auto) (1.4-5.7) K/uL Lymph # (Auto) (0.6-2.4) K/uL [place] # (Auto) (0.0-0.8) K/uL Eos # (Auto) (0.0-0.7) K/uL Baso # (Auto) (0.0-0.1) K/uL Nucleated RBC % /100WBC Nucleated RBCs # K/uL INR APTT (18.6-31.3) SEC D-Dimer, Quantitative (0.0-0.50) mg/L FEU VBG pH (7.31-7.41) VBG pCO2 (41-51) mmHG VBG pO2 mmHG VBG HCO3 (23-28) mEq/L VBG Total CO2 (24-29) mmol/L VBG Base Excess (-2.0-3.0) Sodium (136-148) mmol/L Potassium (3.5-5.1) mmol/L Chloride (98-107) mmol/L Carbon Dioxide (21.0-32.0) mmol/L BUN (7.0-18.0) mg/dL Creatinine (0.8-1.3) mg/dL Est Cr Clr Drug Dosing mL/min Estimated GFR (MDRD) ml/min Glucose (74-106) mg/dL Lactic Acid (0.4-2.0) mmol/L Calcium (8.5-10.1) mg/dL Total Bilirubin (0.2-1.0) mg/dL Direct Bilirubin (0.0-0.5) mg/dL AST (15-37) IU/L ALT (14-63) IU/L Alkaline Phosphatase (46-116) U/L Troponin I (0.000-0.056) ng/mL C-Reactive Protein 17.50 H (0.00-0.90) mg/dL B-Natriuretic Peptide (<100) PG/ML Total Protein (6.4-8.2) g/dL Albumin (3.4-5.0) g/dL Globulin (2.6-4.0) g/dL Albumin/Globulin Ratio (0.9-1.6) Lipase (73-393) U/L Group A Strep (PCR) NOT DETECTED (NOT DETECT) Result Diagrams: 08/31/21 09:37 08/31/21 09:37 Sepsis Event Note - Evaluation Sepsis Screening Result: No Definite Risk - Focused Exam Vital Signs: Vital Signs Temp Pulse Resp BP Pulse Ox 08/31/21 11:57 92 47 H 143/85 H 96 08/31/21 11:27 90 48 H 128/81 97 08/31/21 10:21 90 49 H 132/83 96 08/31/21 09:56 81 50 H 137/75 08/31/21 09:24 38.3 C H 88 44 H 133/84 74 L - Problem List & Annotations (1) Respiratory failure with hypoxia SNOMED Code(s): 62441105609398811 Code(s): J96.91 - RESPIRATORY FAILURE, UNSPECIFIED WITH HYPOXIA Status: Acute Current Visit: Yes (2) Pneumonia due to COVID-19 virus SNOMED Code(s): 834938553469813597 Code(s): U07.1 - COVID-19; J12.82 - PNEUMONIA DUE TO CORONAVIRUS DISEASE 2019 Status: Acute Current Visit: Yes - Problem List Review Problem List Initiated/Reviewed/Updated: Yes - My Orders Last 24 Hours: My Active Orders 08/31/21 Breakfast Regular Diet [DIET] 08/31/21 15:43 Oxygen Therapy [RC] PRN Up ad Karen [RC] ASDIRECTED VTE/DVT Education [RC] PER UNIT ROUTINE Vital Signs [RC] Q4H Acetaminophen [TylenoL] 650 mg PO Q4H PRN Sequential Compression Device [OM.PC] Per Unit Routine Resuscitation Status Routine 08/31/21 15:44 Antiembolic Devices [RC] PER UNIT ROUTINE 08/31/21 15:45 Baricitinib [Olumiant] 4 mg PO DAILY 08/31/21 16:00 Enoxaparin [Lovenox] 40 mg SUBCUT Q24H 08/31/21 21:00 Mirtazapine 30 mg PO BEDTIME buPROPion HCL [Bupropion HCl Sr] 150 mg PO BID carvediloL [Coreg] 6.25 mg PO BID 09/01/21 05:11 CBC W/O DIFF,HEMOGRAM [HEME] AM COMPREHENSIVE METABOLIC PN,CMP [CHEM] AM 09/01/21 09:00 Aspirin [Vazalore] 81 mg PO DAILY Clopidogrel [Plavix] 75 mg PO DAILY Pantoprazole [ProTONIX] 40 mg PO DAILY Remdesivir 100 mg Sodium Chloride 0.9% [Normal Saline AdvBag] 100 ml IV Q24H Venlafaxine [Effexor XR] 37.5 mg PO DAILY atorvaSTATin [Lipitor] 40 mg PO DAILY dexAMETHasone 6 mg PO DAILY lisinopriL [Prinivil] 10 mg PO DAILY - Plan Plan:: 45 yo male admitted for COVID pneumonia with acute hypoxic respiratory failure Hypoxia: on heated high flow NC COVID: treating with dexamethasone, remdesivir. Explained FDA EUA on baricitinib and patient has consented to its use. lovenox for DVT prophylaxis
[2021-08-31] MEDS: Enoxaparin 40 MG/0.4 ML Syringe SUBCUT SCH (17:15)
--- NOTE | 2021-08-31 18:06 | PN ---
TH[facility] Physician - Brief Progress [id number]/24/2021 17:36[facility] Carmen Robert, ND - MWN [facility] - MWN JIGNESH MARK, QUINID+Date of Service 08/31/2021 17:36HPI/Even ts of Note eICU Admission NotePt is a 45 yo M presenting to the ED with LUDA. PMH includes Asthma, CVA and NH. He had formerly been diagnosed with COVID on 08/29 and has had progressively worse breathing for the past several days. In the ED CT to r/o PE was negative, but he continued to have worsening r espiratory distress. He was placed on CPAP, then transitioned to HF NC after being unable to tolerate . He has been given Decadron, Remdesivir and Baricitinib. He is currently laying in bed with a RR of 26 on HF. SpO2 is 96% and VS are otherwise WNL. Case was discussed with his nurse Madisyn. eICU Recomme ndations:1) Continue all appropriate and available COVID therapies2) Goal SpO2 > 90 % as able with HF NC3) Encourage self proning as tolerated4) Pulm toileting with nebs5) BG control6) GI prophylaxis on Steroids7) Empiric Lovenox for VTE preventionThank you for allowing us to participate in the care of your patient.Interventions Major-Hypoxemia - evaluation and management, Infection - evaluation and m anagement, Respiratory failure - evaluation and [id number]-Erpc-cxobpfnl therapies (e.g. VTE, beta jeramy, etc.), Communication with other healthcare providers and/or familyElectronically S igned by: ASHLEY STRATTON () on 08/31/2021 18:06
--- NOTE | 2021-08-31 19:52 | PCM.HP.2 ---
H&P History of Present Illness - General Date of Service: 08/31/21 Admit Problem/Dx: Admission Diagnosis/Problem Admission Diagnosis/Problem Viral pneumonia - History of Present Illness Initial Comments - Free Text/Narative: 45 yo male with pmh of CAD who presents with complaints of shortness of breath, cough and fevers for past week. In the ED he was noted to be satting low 80s on room air and was placed on CPAP initially and then on heated high flow NC. CT scan of chest reported patchy bilateral ground glass opacities. - Related Data Allergies/Adverse Reactions: Allergies Allergy/AdvReac Type Severity Reaction Status Date / Time Sulfa (Sulfonamide Allergy Other Verified 08/31/21 09:37 Antibiotics) Home Medications: Home Meds Asacol Hd Mesalamine 800 mg PO BID 08/31/21 [History] Aspirin [Vazalore] 81 mg PO DAILY 08/31/21 [History] Benzonatate 100 mg PO TID 08/31/21 [History] Clopidogrel [Plavix] 75 mg PO DAILY 08/31/21 [History] Ibuprofen 800 mg PO Q8HR PRN 08/31/21 [History] Levofloxacin [Levaquin] 500 mg PO DAILY 08/31/21 [History] Mirtazapine 30 mg PO BEDTIME 08/31/21 [History] Nitroglycerin [Nitrostat] 0.4 mg SL ASDIRECTED PRN 08/31/21 [History] Pantoprazole [ProTONIX] 40 mg PO DAILY 08/31/21 [History] Venlafaxine [Effexor XR] 37.5 mg PO DAILY 08/31/21 [History] atorvaSTATin [Lipitor] 40 mg PO DAILY 08/31/21 [History] buPROPion HCL [Bupropion HCl Sr] 150 mg PO BID 08/31/21 [History] carvediloL [Carvedilol] 6.25 mg PO BID 08/31/21 [History] lisinopriL [Lisinopril] 10 mg PO DAILY 08/31/21 [History] Past Medical History HEENT History: Reports: Impaired Vision Cardiovascular History: Reports: Blood Clots/VTE/DVT, High Cholesterol, Hypertension, [place] Respiratory History: Reports: None Gastrointestinal History: Reports: GERD, Irritable Bowel Syndrome Genitourinary History: Reports: None Musculoskeletal History: Reports: Arthritis, Back Pain, Chronic Neurological History: Reports: CVA Psychiatric History: Reports: ADHD, Depression Endocrine/Metabolic History: Reports: None Hematologic History: Reports: None Immunologic History: Reports: None Oncologic (Cancer) History: Reports: None Dermatologic History: Reports: None - Infectious Disease History Infectious Disease History: Reports: Novel Coronavirus - Past Surgical History Head Surgeries/Procedures: Reports: None HEENT Surgical History: Reports: None Cardiovascular Surgical History: Reports: None Other Cardiovascular Surgeries/Procedures: history of heart attack Respiratory Surgical History: Reports: None GI Surgical History: Reports: None Male Surgical History: Reports: None Endocrine Surgical History: Reports: None Neurological Surgical History: Reports: None Other Neurological Surgeries/Procedures: history of stroke Musculoskeletal Surgical History: Reports: None Oncologic Surgical History: Reports: None Dermatological Surgical History: Reports: None Social & Family History - Family History Family Medical History: Unobtainable - Tobacco Use Tobacco Use Status *Q: Never Tobacco User Second Hand Smoke Exposure: No - Caffeine Use Caffeine Use: Reports: Coffee, Soda, Tea - Recreational Drug Use Recreational Drug Use: No H&P Review of Systems - Review of Systems: Review Of Systems: Comprehensive ROS is negative, except as noted in HPI. Exam - Exam Exam: See Below - Vital Signs Vital Signs: Last Vital Signs Temp 38.3 C H 08/31/21 09:24 Pulse 92 08/31/21 11:57 Resp 47 H 08/31/21 11:57 BP 143/85 H 08/31/21 11:57 Pulse Ox 96 08/31/21 11:57 Weight: 99.564 kg - Exam General: Alert, Oriented HEENT: Mucosa Moist & [place] Lungs: Clear to Auscultation, Normal Respiratory Effort Cardiovascular: Regular Rate, Regular Rhythm GI/Abdominal Exam: Normal Bowel Sounds, Soft, Non-Tender Extremities: Non-Tender, No Pedal Edema - Patient Data Lab Results Last 24 hrs: Laboratory Results - last 24 hr 08/31/21 08/31/21 08/31/21 Range/Units 09:37 09:37 09:37 WBC 4.87 (4.0-11.0) K/uL RBC 4.97 (4.50-5.90) M/uL Hgb 12.7 L (13.0-17.0) g/dL Hct 38.5 (38.0-50.0) % MCV 77.5 L (80.0-98.0) fL MCH 25.6 L (27.0-32.0) pg MCHC 33.0 (31.0-37.0) g/dL RDW Std Deviation 49.9 (28.0-62.0) fl RDW Coeff of Juve 18 H (11.0-15.0) % Plt Count 160 (150-400) K/uL MPV 10.40 (7.40-12.00) fL Neut % (Auto) 85.5 H (48.0-80.0) % Lymph % (Auto) 9.0 L (16.0-40.0) % [place] % (Auto) 5.5 (0.0-15.0) % Eos % (Auto) 0.0 (0.0-7.0) % Baso % (Auto) 0.0 (0.0-1.5) % Neut # (Auto) 4.2 (1.4-5.7) K/uL Lymph # (Auto) 0.4 L (0.6-2.4) K/uL [place] # (Auto) 0.3 (0.0-0.8) K/uL Eos # (Auto) 0.0 (0.0-0.7) K/uL Baso # (Auto) 0.0 (0.0-0.1) K/uL Nucleated RBC % 0.0 /100WBC Nucleated RBCs # 0 K/uL INR APTT (18.6-31.3) SEC D-Dimer, Quantitative (0.0-0.50) mg/L FEU VBG pH 7.41 (7.31-7.41) VBG pCO2 38 L (41-51) mmHG VBG pO2 < 30 mmHG VBG HCO3 24 (23-28) mEq/L VBG Total CO2 22 L (24-29) mmol/L VBG Base Excess -0.3 (-2.0-3.0) Sodium 136 (136-148) mmol/L Potassium 4.1 (3.5-5.1) mmol/L Chloride 101 (98-107) mmol/L Carbon Dioxide 23.8 (21.0-32.0) mmol/L BUN 16 (7.0-18.0) mg/dL Creatinine 1.2 (0.8-1.3) mg/dL Est Cr Clr Drug Dosing 83.53 mL/min Estimated GFR (MDRD) > 60.0 ml/min Glucose 103 (74-106) mg/dL Lactic Acid (0.4-2.0) mmol/L Calcium 8.2 L (8.5-10.1) mg/dL Total Bilirubin 0.4 (0.2-1.0) mg/dL Direct Bilirubin 0.20 (0.0-0.5) mg/dL AST 54 H (15-37) IU/L ALT 70 H (14-63) IU/L Alkaline Phosphatase 159 H (46-116) U/L Troponin I < 0.050 (0.000-0.056) ng/mL C-Reactive Protein (0.00-0.90) mg/dL B-Natriuretic Peptide (<100) PG/ML Total Protein 7.8 (6.4-8.2) g/dL Albumin 2.6 L (3.4-5.0) g/dL Globulin 5.2 H (2.6-4.0) g/dL Albumin/Globulin Ratio 0.5 L (0.9-1.6) Lipase 340 (73-393) U/L Group A Strep (PCR) (NOT DETECT) 08/31/21 08/31/21 08/31/21 Range/Units 09:37 09:37 09:37 WBC (4.0-11.0) K/uL RBC (4.50-5.90) M/uL Hgb (13.0-17.0) g/dL Hct (38.0-50.0) % MCV (80.0-98.0) fL MCH (27.0-32.0) pg MCHC (31.0-37.0) g/dL RDW Std Deviation (28.0-62.0) fl RDW Coeff of Juve (11.0-15.0) % Plt Count (150-400) K/uL MPV (7.40-12.00) fL Neut % (Auto) (48.0-80.0) % Lymph % (Auto) (16.0-40.0) % [place] % (Auto) (0.0-15.0) % Eos % (Auto) (0.0-7.0) % Baso % (Auto) (0.0-1.5) % Neut # (Auto) (1.4-5.7) K/uL Lymph # (Auto) (0.6-2.4) K/uL [place] # (Auto) (0.0-0.8) K/uL Eos # (Auto) (0.0-0.7) K/uL Baso # (Auto) (0.0-0.1) K/uL Nucleated RBC % /100WBC Nucleated RBCs # K/uL INR 1.04 APTT 29.0 (18.6-31.3) SEC D-Dimer, Quantitative 1.68 H (0.0-0.50) mg/L FEU VBG pH (7.31-7.41) VBG pCO2 (41-51) mmHG VBG pO2 mmHG VBG HCO3 (23-28) mEq/L VBG Total CO2 (24-29) mmol/L VBG Base Excess (-2.0-3.0) Sodium (136-148) mmol/L Potassium (3.5-5.1) mmol/L Chloride (98-107) mmol/L Carbon Dioxide (21.0-32.0) mmol/L BUN (7.0-18.0) mg/dL Creatinine (0.8-1.3) mg/dL Est Cr Clr Drug Dosing mL/min Estimated GFR (MDRD) ml/min Glucose (74-106) mg/dL Lactic Acid 1.4 (0.4-2.0) mmol/L Calcium (8.5-10.1) mg/dL Total Bilirubin (0.2-1.0) mg/dL Direct Bilirubin (0.0-0.5) mg/dL AST (15-37) IU/L ALT (14-63) IU/L Alkaline Phosphatase (46-116) U/L Troponin I (0.000-0.056) ng/mL C-Reactive Protein (0.00-0.90) mg/dL B-Natriuretic Peptide 15 (<100) PG/ML Total Protein (6.4-8.2) g/dL Albumin (3.4-5.0) g/dL Globulin (2.6-4.0) g/dL Albumin/Globulin Ratio (0.9-1.6) Lipase (73-393) U/L Group A Strep (PCR) (NOT DETECT) 08/31/21 08/31/21 Range/Units 09:37 13:05 WBC (4.0-11.0) K/uL RBC (4.50-5.90) M/uL Hgb (13.0-17.0) g/dL Hct (38.0-50.0) % MCV (80.0-98.0) fL MCH (27.0-32.0) pg MCHC (31.0-37.0) g/dL RDW Std Deviation (28.0-62.0) fl RDW Coeff of Juve (11.0-15.0) % Plt Count (150-400) K/uL MPV (7.40-12.00) fL Neut % (Auto) (48.0-80.0) % Lymph % (Auto) (16.0-40.0) % [place] % (Auto) (0.0-15.0) % Eos % (Auto) (0.0-7.0) % Baso % (Auto) (0.0-1.5) % Neut # (Auto) (1.4-5.7) K/uL Lymph # (Auto) (0.6-2.4) K/uL [place] # (Auto) (0.0-0.8) K/uL Eos # (Auto) (0.0-0.7) K/uL Baso # (Auto) (0.0-0.1) K/uL Nucleated RBC % /100WBC Nucleated RBCs # K/uL INR APTT (18.6-31.3) SEC D-Dimer, Quantitative (0.0-0.50) mg/L FEU VBG pH (7.31-7.41) VBG pCO2 (41-51) mmHG VBG pO2 mmHG VBG HCO3 (23-28) mEq/L VBG Total CO2 (24-29) mmol/L VBG Base Excess (-2.0-3.0) Sodium (136-148) mmol/L Potassium (3.5-5.1) mmol/L Chloride (98-107) mmol/L Carbon Dioxide (21.0-32.0) mmol/L BUN (7.0-18.0) mg/dL Creatinine (0.8-1.3) mg/dL Est Cr Clr Drug Dosing mL/min Estimated GFR (MDRD) ml/min Glucose (74-106) mg/dL Lactic Acid (0.4-2.0) mmol/L Calcium (8.5-10.1) mg/dL Total Bilirubin (0.2-1.0) mg/dL Direct Bilirubin (0.0-0.5) mg/dL AST (15-37) IU/L ALT (14-63) IU/L Alkaline Phosphatase (46-116) U/L Troponin I (0.000-0.056) ng/mL C-Reactive Protein 17.50 H (0.00-0.90) mg/dL B-Natriuretic Peptide (<100) PG/ML Total Protein (6.4-8.2) g/dL Albumin (3.4-5.0) g/dL Globulin (2.6-4.0) g/dL Albumin/Globulin Ratio (0.9-1.6) Lipase (73-393) U/L Group A Strep (PCR) NOT DETECTED (NOT DETECT) Result Diagrams: 08/31/21 09:37 08/31/21 09:37 Sepsis Event Note - Evaluation Sepsis Screening Result: No Definite Risk - Focused Exam Vital Signs: Vital Signs Temp Pulse Resp BP Pulse Ox 08/31/21 11:57 92 47 H 143/85 H 96 08/31/21 11:27 90 48 H 128/81 97 08/31/21 10:21 90 49 H 132/83 96 08/31/21 09:56 81 50 H 137/75 08/31/21 09:24 38.3 C H 88 44 H 133/84 74 L - Problem List (1) Respiratory failure with hypoxia SNOMED Code(s): 89206694606491481 ICD Code: J96.91 - RESPIRATORY FAILURE, UNSPECIFIED WITH HYPOXIA Status: Acute Current Visit: Yes (2) Pneumonia due to COVID-19 virus SNOMED Code(s): 821557788614377040 ICD Code: U07.1 - COVID-19; J12.82 - PNEUMONIA DUE TO CORONAVIRUS DISEASE 2019 Status: Acute Current Visit: Yes Problem List Initiated/Reviewed/Updated: Yes Orders Last 24hrs: Active Orders 24 hr Category Date Time Status Admission Status [Patient Status] [ADT] Stat ADT 08/31/21 13:27 Active Patient Status [ADT] Stat ADT 08/31/21 13:29 Active Antiembolic Devices [RC] PER UNIT ROUTINE Care 08/31/21 15:44 Active CPAP Adult [RT BiPAP/CPAP] [RC] ASDIRECTED Care 08/31/21 09:38 Active Cardiac Monitoring [RC] . DIRECTED Care 08/31/21 13:29 Active Cardiac Monitoring [RC] Q8H Care 08/31/21 09:34 Active Oxygen Therapy [RC] PRN Care 08/31/21 15:43 Active Pulse Oximetry [RC] ASDIRECTED Care 08/31/21 09:34 Active RT Aerosol Therapy [RC] ASDIRECTED Care 08/31/21 09:38 Active Up ad Karen [RC] ASDIRECTED Care 08/31/21 15:43 Active VTE/DVT Education [RC] PER UNIT ROUTINE Care 08/31/21 15:43 Active Vital Signs [RC] Q4H Care 08/31/21 15:43 Active Regular Diet [DIET] Diet 08/31/21 Breakfast Active CBC W/O DIFF,HEMOGRAM [HEME] AM Lab 09/01/21 05:11 Ordered COMPREHENSIVE METABOLIC PN,CMP [CHEM] AM Lab 09/01/21 05:11 Ordered CULTURE BLOOD [BC] Stat Lab 08/31/21 09:37 Received CULTURE BLOOD [BC] Stat Lab 08/31/21 09:59 Received UA W/ILYA RFLX IF INDICATED [URIN] Stat Lab 08/31/21 09:35 Ordered Acetaminophen [TylenoL] Med 08/31/21 15:43 Active 650 mg PO Q4H PRN Aspirin [Halfprin] Med 09/01/21 09:00 Active 81 mg PO DAILY Baricitinib [Olumiant] Med 08/31/21 15:45 Active 4 mg PO DAILY Clopidogrel [Plavix] Med 09/01/21 09:00 Active 75 mg PO DAILY Enoxaparin [Lovenox] Med 08/31/21 16:00 Active 40 mg SUBCUT Q24H Mirtazapine [Remeron] Med 08/31/21 21:00 Active 30 mg PO BEDTIME Pantoprazole [ProTONIX] Med 09/01/21 09:00 Active 40 mg PO DAILY Remdesivir 100 mg Med 09/01/21 09:00 Active Sodium Chloride 0.9% [Normal Saline AdvBag] 100 ml IV Q24H Sodium Chloride 0.9% [Normal Saline] 1,000 ml Med 08/31/21 10:07 Active IV STAT Sodium Chloride 0.9% [Saline Flush] Med 08/31/21 09:33 Active 10 ml FLUSH ASDIRECTED PRN Sodium Chloride 0.9% [Saline Flush] Med 08/31/21 09:33 Active 2.5 ml FLUSH ASDIRECTED PRN Venlafaxine [Effexor XR] Med 09/01/21 09:00 Active 37.5 mg PO DAILY atorvaSTATin [Lipitor] Med 09/01/21 09:00 Active 40 mg PO DAILY buPROPion [Wellbutrin SR] Med 08/31/21 21:00 Active 150 mg PO BID carvediloL [Coreg] Med 08/31/21 21:00 Active 6.25 mg PO BID dexAMETHasone Med 09/01/21 09:00 Active 6 mg PO DAILY lisinopriL [Prinivil] Med 09/01/21 09:00 Active 10 mg PO DAILY Blood Culture x2 Reflex Set [OM.PC] Stat Oth 08/31/21 09:35 Ordered Saline Lock Insert [OM.PC] Stat Oth 08/31/21 09:33 Ordered Sequential Compression Device [OM.PC] Per Unit Routine Oth 08/31/21 15:43 Ordered Resuscitation Status Routine Resus Stat 08/31/21 15:43 Ordered Medication Orders Acetaminophen (Acetaminophen 325 Mg Tab) 650 mg PO Q4H PRN PRN Reason: Pain (Mild 1-3)/fever Aspirin (Aspirin 81 Mg Tab.Ec) 81 mg PO DAILY [facility] Atorvastatin Calcium (Atorvastatin 40 Mg Tab) 40 mg PO DAILY [facility] Baricitinib (Baricitinib 2 Mg Tab) 4 mg PO DAILY [facility] Last Admin: 08/31/21 17:15 Dose: 4 mg Documented by: MACHELLE Bupropion HCl (Bupropion 150 Mg Tab.Sr) 150 mg PO BID [facility] Carvedilol (Carvedilol 6.25 Mg Tab) 6.25 mg PO BID [facility] Clopidogrel Bisulfate (Clopidogrel 75 Mg Tab) 75 mg PO DAILY [facility] Dexamethasone (Dexamethasone 4 Mg Tab) 6 mg PO DAILY [facility] Enoxaparin Sodium (Enoxaparin 40 Mg/0.4 Ml Syringe) 40 mg SUBCUT Q24H [facility] Last Admin: 08/31/21 17:15 Dose: 40 mg Documented by: MACHELLE Sodium Chloride (Normal Saline) 1,000 mls @ 10 mls/hr IV STAT STA Stop: 09/04/21 14:06 Last Admin: 08/31/21 10:08 Dose: 10 mls/hr Documented by: MINI Remdesivir 100 mg/ Sodium (Chloride) 100 mls @ 100 mls/hr IV Q24H [facility] Stop: 09/04/21 09:59 Lisinopril (Lisinopril 10 Mg Tab) 10 mg PO DAILY [facility] Mirtazapine (Mirtazapine 15 Mg Tab) 30 mg PO BEDTIME [facility] Pantoprazole Sodium (Pantoprazole 40 Mg Tab.Cr) 40 mg PO DAILY [facility] Sodium Chloride (Sodium Chloride 0.9% 10 Ml Syringe) 10 ml FLUSH ASDIRECTED PRN PRN Reason: Keep Vein Open Last Admin: 08/31/21 09:49 Dose: 10 ml Documented by: MINI Sodium Chloride (Sodium Chloride 0.9% 2.5 Ml Syringe) 2.5 ml FLUSH ASDIRECTED PRN PRN Reason: Keep Vein Open Last Admin: 08/31/21 09:49 Dose: 2.5 ml Documented by: MINI Venlafaxine HCl (Venlafaxine 37.5 Mg Cap.Er) 37.5 mg PO DAILY [facility] Assessment/Plan Comment:: 45 yo male admitted for COVID pneumonia with acute hypoxic respiratory failure Hypoxia: on heated high flow NC COVID: treating with dexamethasone, remdesivir. Explained FDA EUA on baricitinib and patient has consented to its use. lovenox for DVT prophylaxis
[2021-08-31] MEDS: Mirtazapine 15 MG Tab PO SCH (20:59)
[2021-08-31] MEDS: atorvaSTATin 40 MG Tab PO SCH (20:59)
[2021-08-31] MEDS: buPROPion 150 MG Tab.SR PO SCH (21:00)
[2021-08-31] MEDS: Carvedilol 6.25 MG Tab PO SCH (21:00)
[2021-08-31] MEDS ORDERED: Ondansetron 4 MG/2 ML SDV IVPUSH PRN (21:42)
[2021-08-31] MEDS ORDERED: Albuterol/Ipratropium 3.0-0.5 MG/3 ML Neb Soln NEB PRN (21:42)
[2021-08-31] MEDS ORDERED: Benzonatate 100 MG Cap PO PRN (21:46)
[2021-08-31] MEDS ORDERED: Albuterol/Ipratropium 4 GM Inhalation Spray INH ONE (23:02)
[2021-08-31] MEDS: Benzocaine/Cetylpyridinium/Menthol Lozenge MUCMEM PRN (23:12)
[2021-08-31] MEDS: guaiFENesin 100 MG/5 ML Soln 5 ML UD Cup PO PRN (23:12)
[2021-09-01] MEDS: Albuterol/Ipratropium 4 GM Inhalation Spray INH SCH ×6 (01:44→21:46)
[2021-09-01 06:58] LABS: BLOOD UREA NITROGEN,BUN 17 mg/dL (7.0-18.0); CARBON DIOXIDE,CO2 21.7 mmol/L (21.0-32.0); CHLORIDE,CL 103 mmol/L (98-107); GLUCOSE RANDOM 133 mg/dL (74-106); POTASSIUM,K 4.3 mmol/L (3.5-5.1); SODIUM,NA 137 mmol/L (136-148)
--- NOTE | 2021-09-01 07:42 | PCM.PN ---
<Julia Emmanuel - Last Filed: 09/01/21 10:42> - General Info Date of Service: 09/01/21 Admission Dx/Problem (Free Text): Admission Diagnosis/Problem Admission Diagnosis/Problem Viral pneumonia Subjective Update: 45-year-old male with history of stroke, myocardial infarction and asthma who tested positive for Covid on 08/30/2021 presented to the ER with cough, shortness of breath and sharp chest pain. Patient also had vomiting and diarrhea. Was found to have an O2 saturation of 77%. Was placed on CPAP and transitioned to heated high flow. Patient had significant tachypnea and was admitted to the ICU for hypoxia secondary to Covid pneumonia. Patient started on remdesivir, dexamethasone, and baricitinib. CT angiography: No central or proximal pulmonary emboli. Diffuse patchy groundglass and parenchymal consolidation most likely reflecting Covid. CXR: Stable chest with possible subtle bilateral opacities. This morning the patient is on heated high flow at 50 L, FiO2 60%. Patient states he is having less difficulty with his breathing this morning. Denies chest pain, palpitations, fever, chills, headaches or dizziness. Denies diarrhea. - Review of Systems General: Denies: Fever, Chills HEENT: Denies: Headaches Pulmonary: Reports: Shortness of Breath, Cough. Denies: Pleuritic Chest Pain, Sputum Cardiovascular: Reports: Dyspnea on Exertion. Denies: Chest Pain, Palpitations Gastrointestinal: Denies: Abdominal Pain, Constipation, Diarrhea, Nausea, Vomiting Genitourinary: Denies: Dysuria Musculoskeletal: Denies: Leg Pain Skin: Denies: Diaphoresis Neurological: Denies: Confusion, Dizziness, Numbness, Paresthesia - Patient Data Vitals - Most Recent: Last Vital Signs Temp 96.7 F L 09/01/21 05:00 Pulse 66 09/01/21 07:00 Resp 26 H 09/01/21 07:00 BP 110/67 09/01/21 07:00 Pulse Ox 89 L 09/01/21 07:00 Weight - Most Recent: 101.877 kg I&O - Last 24 Hours: Intake & Output 08/31/21 09/01/21 09/01/21 22:59 06:59 14:59 Intake Total 1100 Output Total 700 Balance 400 Lab Results Last 24 Hours: Laboratory Results - last 24 hr 08/31/21 08/31/21 08/31/21 Range/Units 09:37 09:37 09:37 WBC 4.87 (4.0-11.0) K/uL RBC 4.97 (4.50-5.90) M/uL Hgb 12.7 L (13.0-17.0) g/dL Hct 38.5 (38.0-50.0) % MCV 77.5 L (80.0-98.0) fL MCH 25.6 L (27.0-32.0) pg MCHC 33.0 (31.0-37.0) g/dL RDW Std Deviation 49.9 (28.0-62.0) fl RDW Coeff of Juve 18 H (11.0-15.0) % Plt Count 160 (150-400) K/uL MPV 10.40 (7.40-12.00) fL Neut % (Auto) 85.5 H (48.0-80.0) % Lymph % (Auto) 9.0 L (16.0-40.0) % [place] % (Auto) 5.5 (0.0-15.0) % Eos % (Auto) 0.0 (0.0-7.0) % Baso % (Auto) 0.0 (0.0-1.5) % Neut # (Auto) 4.2 (1.4-5.7) K/uL Lymph # (Auto) 0.4 L (0.6-2.4) K/uL [place] # (Auto) 0.3 (0.0-0.8) K/uL Eos # (Auto) 0.0 (0.0-0.7) K/uL Baso # (Auto) 0.0 (0.0-0.1) K/uL Nucleated RBC % 0.0 /100WBC Nucleated RBCs # 0 K/uL INR APTT (18.6-31.3) SEC D-Dimer, Quantitative (0.0-0.50) mg/L FEU VBG pH 7.41 (7.31-7.41) VBG pCO2 38 L (41-51) mmHG VBG pO2 < 30 mmHG VBG HCO3 24 (23-28) mEq/L VBG Total CO2 22 L (24-29) mmol/L VBG Base Excess -0.3 (-2.0-3.0) Sodium 136 (136-148) mmol/L Potassium 4.1 (3.5-5.1) mmol/L Chloride 101 (98-107) mmol/L Carbon Dioxide 23.8 (21.0-32.0) mmol/L BUN 16 (7.0-18.0) mg/dL Creatinine 1.2 (0.8-1.3) mg/dL Est Cr Clr Drug Dosing 83.53 mL/min Estimated GFR (MDRD) > 60.0 ml/min Glucose 103 (74-106) mg/dL Lactic Acid (0.4-2.0) mmol/L Calcium 8.2 L (8.5-10.1) mg/dL Total Bilirubin 0.4 (0.2-1.0) mg/dL Direct Bilirubin 0.20 (0.0-0.5) mg/dL AST 54 H (15-37) IU/L ALT 70 H (14-63) IU/L Alkaline Phosphatase 159 H (46-116) U/L Troponin I < 0.050 (0.000-0.056) ng/mL C-Reactive Protein (0.00-0.90) mg/dL B-Natriuretic Peptide (<100) PG/ML Total Protein 7.8 (6.4-8.2) g/dL Albumin 2.6 L (3.4-5.0) g/dL Globulin 5.2 H (2.6-4.0) g/dL Albumin/Globulin Ratio 0.5 L (0.9-1.6) Lipase 340 (73-393) U/L Urine Color Urine Appearance Urine pH (5.0-8.0) Ur Specific [place] (1.001-1.035) Urine Protein (NEGATIVE) mg/dL Urine Glucose (UA) (NEGATIVE) mg/dL Urine Ketones (NEGATIVE) mg/dL Urine Occult Blood (NEGATIVE) Urine Nitrite (NEGATIVE) Urine Bilirubin (NEGATIVE) Urine Urobilinogen (<2.0) EU/dL Ur Leukocyte Esterase (NEGATIVE) Urine RBC (0-2/HPF) Urine WBC (0-5/HPF) Ur Epithelial Cells (NONE-FEW) Urine Bacteria (NEGATIVE) Group A Strep (PCR) (NOT DETECT) 08/31/21 08/31/21 08/31/21 Range/Units 09:37 09:37 09:37 WBC (4.0-11.0) K/uL RBC (4.50-5.90) M/uL Hgb (13.0-17.0) g/dL Hct (38.0-50.0) % MCV (80.0-98.0) fL MCH (27.0-32.0) pg MCHC (31.0-37.0) g/dL RDW Std Deviation (28.0-62.0) fl RDW Coeff of Juve (11.0-15.0) % Plt Count (150-400) K/uL MPV (7.40-12.00) fL Neut % (Auto) (48.0-80.0) % Lymph % (Auto) (16.0-40.0) % [place] % (Auto) (0.0-15.0) % Eos % (Auto) (0.0-7.0) % Baso % (Auto) (0.0-1.5) % Neut # (Auto) (1.4-5.7) K/uL Lymph # (Auto) (0.6-2.4) K/uL [place] # (Auto) (0.0-0.8) K/uL Eos # (Auto) (0.0-0.7) K/uL Baso # (Auto) (0.0-0.1) K/uL Nucleated RBC % /100WBC Nucleated RBCs # K/uL INR 1.04 APTT 29.0 (18.6-31.3) SEC D-Dimer, Quantitative 1.68 H (0.0-0.50) mg/L FEU VBG pH (7.31-7.41) VBG pCO2 (41-51) mmHG VBG pO2 mmHG VBG HCO3 (23-28) mEq/L VBG Total CO2 (24-29) mmol/L VBG Base Excess (-2.0-3.0) Sodium (136-148) mmol/L Potassium (3.5-5.1) mmol/L Chloride (98-107) mmol/L Carbon Dioxide (21.0-32.0) mmol/L BUN (7.0-18.0) mg/dL Creatinine (0.8-1.3) mg/dL Est Cr Clr Drug Dosing mL/min Estimated GFR (MDRD) ml/min Glucose (74-106) mg/dL Lactic Acid 1.4 (0.4-2.0) mmol/L Calcium (8.5-10.1) mg/dL Total Bilirubin (0.2-1.0) mg/dL Direct Bilirubin (0.0-0.5) mg/dL AST (15-37) IU/L ALT (14-63) IU/L Alkaline Phosphatase (46-116) U/L Troponin I (0.000-0.056) ng/mL C-Reactive Protein (0.00-0.90) mg/dL B-Natriuretic Peptide 15 (<100) PG/ML Total Protein (6.4-8.2) g/dL Albumin (3.4-5.0) g/dL Globulin (2.6-4.0) g/dL Albumin/Globulin Ratio (0.9-1.6) Lipase (73-393) U/L Urine Color Urine Appearance Urine pH (5.0-8.0) Ur Specific [place] (1.001-1.035) Urine Protein (NEGATIVE) mg/dL Urine Glucose (UA) (NEGATIVE) mg/dL Urine Ketones (NEGATIVE) mg/dL Urine Occult Blood (NEGATIVE) Urine Nitrite (NEGATIVE) Urine Bilirubin (NEGATIVE) Urine Urobilinogen (<2.0) EU/dL Ur Leukocyte Esterase (NEGATIVE) Urine RBC (0-2/HPF) Urine WBC (0-5/HPF) Ur Epithelial Cells (NONE-FEW) Urine Bacteria (NEGATIVE) Group A Strep (PCR) (NOT DETECT) 08/31/21 08/31/21 09/01/21 Range/Units 09:37 13:05 00:05 WBC (4.0-11.0) K/uL RBC (4.50-5.90) M/uL Hgb (13.0-17.0) g/dL Hct (38.0-50.0) % MCV (80.0-98.0) fL MCH (27.0-32.0) pg MCHC (31.0-37.0) g/dL RDW Std Deviation (28.0-62.0) fl RDW Coeff of Juve (11.0-15.0) % Plt Count (150-400) K/uL MPV (7.40-12.00) fL Neut % (Auto) (48.0-80.0) % Lymph % (Auto) (16.0-40.0) % [place] % (Auto) (0.0-15.0) % Eos % (Auto) (0.0-7.0) % Baso % (Auto) (0.0-1.5) % Neut # (Auto) (1.4-5.7) K/uL Lymph # (Auto) (0.6-2.4) K/uL [place] # (Auto) (0.0-0.8) K/uL Eos # (Auto) (0.0-0.7) K/uL Baso # (Auto) (0.0-0.1) K/uL Nucleated RBC % /100WBC Nucleated RBCs # K/uL INR APTT (18.6-31.3) SEC D-Dimer, Quantitative (0.0-0.50) mg/L FEU VBG pH (7.31-7.41) VBG pCO2 (41-51) mmHG VBG pO2 mmHG VBG HCO3 (23-28) mEq/L VBG Total CO2 (24-29) mmol/L VBG Base Excess (-2.0-3.0) Sodium (136-148) mmol/L Potassium (3.5-5.1) mmol/L Chloride (98-107) mmol/L Carbon Dioxide (21.0-32.0) mmol/L BUN (7.0-18.0) mg/dL Creatinine (0.8-1.3) mg/dL Est Cr Clr Drug Dosing mL/min Estimated GFR (MDRD) ml/min Glucose (74-106) mg/dL Lactic Acid (0.4-2.0) mmol/L Calcium (8.5-10.1) mg/dL Total Bilirubin (0.2-1.0) mg/dL Direct Bilirubin (0.0-0.5) mg/dL AST (15-37) IU/L ALT (14-63) IU/L Alkaline Phosphatase (46-116) U/L Troponin I (0.000-0.056) ng/mL C-Reactive Protein 17.50 H (0.00-0.90) mg/dL B-Natriuretic Peptide (<100) PG/ML Total Protein (6.4-8.2) g/dL Albumin (3.4-5.0) g/dL Globulin (2.6-4.0) g/dL Albumin/Globulin Ratio (0.9-1.6) Lipase (73-393) U/L Urine Color YELLOW Urine Appearance CLEAR Urine pH 6.0 (5.0-8.0) Ur Specific [place] 1.015 (1.001-1.035) Urine Protein TRACE H (NEGATIVE) mg/dL Urine Glucose (UA) NEGATIVE (NEGATIVE) mg/dL Urine Ketones NEGATIVE (NEGATIVE) mg/dL Urine Occult Blood NEGATIVE (NEGATIVE) Urine Nitrite NEGATIVE (NEGATIVE) Urine Bilirubin NEGATIVE (NEGATIVE) Urine Urobilinogen 1.0 (<2.0) EU/dL Ur Leukocyte Esterase NEGATIVE (NEGATIVE) Urine RBC 0-1 (0-2/HPF) Urine WBC 0-1 (0-5/HPF) Ur Epithelial Cells RARE (NONE-FEW) Urine Bacteria RARE (NEGATIVE) Group A Strep (PCR) NOT DETECTED (NOT DETECT) 09/01/21 09/01/21 Range/Units 05:25 05:25 WBC 3.24 L (4.0-11.0) K/uL RBC 4.72 (4.50-5.90) M/uL Hgb 11.8 L (13.0-17.0) g/dL Hct 36.3 L (38.0-50.0) % MCV 76.9 L (80.0-98.0) fL MCH 25.0 L (27.0-32.0) pg MCHC 32.5 (31.0-37.0) g/dL RDW Std Deviation 49.6 (28.0-62.0) fl RDW Coeff of Juve 18 H (11.0-15.0) % Plt Count 203 (150-400) K/uL MPV 10.40 (7.40-12.00) fL Neut % (Auto) (48.0-80.0) % Lymph % (Auto) (16.0-40.0) % [place] % (Auto) (0.0-15.0) % Eos % (Auto) (0.0-7.0) % Baso % (Auto) (0.0-1.5) % Neut # (Auto) (1.4-5.7) K/uL Lymph # (Auto) (0.6-2.4) K/uL [place] # (Auto) (0.0-0.8) K/uL Eos # (Auto) (0.0-0.7) K/uL Baso # (Auto) (0.0-0.1) K/uL Nucleated RBC % 0.0 /100WBC Nucleated RBCs # 0 K/uL INR APTT (18.6-31.3) SEC D-Dimer, Quantitative (0.0-0.50) mg/L FEU VBG pH (7.31-7.41) VBG pCO2 (41-51) mmHG VBG pO2 mmHG VBG HCO3 (23-28) mEq/L VBG Total CO2 (24-29) mmol/L VBG Base Excess (-2.0-3.0) Sodium 137 (136-148) mmol/L Potassium 4.3 (3.5-5.1) mmol/L Chloride 103 (98-107) mmol/L Carbon Dioxide 21.7 (21.0-32.0) mmol/L BUN 17 (7.0-18.0) mg/dL Creatinine 0.9 (0.8-1.3) mg/dL Est Cr Clr Drug Dosing 124.57 mL/min Estimated GFR (MDRD) > 60.0 ml/min Glucose 133 H (74-106) mg/dL Lactic Acid (0.4-2.0) mmol/L Calcium 8.1 L (8.5-10.1) mg/dL Total Bilirubin 0.4 (0.2-1.0) mg/dL Direct Bilirubin (0.0-0.5) mg/dL AST 154 H (15-37) IU/L ALT 184 H (14-63) IU/L Alkaline Phosphatase 176 H (46-116) U/L Troponin I (0.000-0.056) ng/mL C-Reactive Protein (0.00-0.90) mg/dL B-Natriuretic Peptide (<100) PG/ML Total Protein 7.4 (6.4-8.2) g/dL Albumin 2.4 L (3.4-5.0) g/dL Globulin 5.0 H (2.6-4.0) g/dL Albumin/Globulin Ratio 0.5 L (0.9-1.6) Lipase (73-393) U/L Urine Color Urine Appearance Urine pH (5.0-8.0) Ur Specific [place] (1.001-1.035) Urine Protein (NEGATIVE) mg/dL Urine Glucose (UA) (NEGATIVE) mg/dL Urine Ketones (NEGATIVE) mg/dL Urine Occult Blood (NEGATIVE) Urine Nitrite (NEGATIVE) Urine Bilirubin (NEGATIVE) Urine Urobilinogen (<2.0) EU/dL Ur Leukocyte Esterase (NEGATIVE) Urine RBC (0-2/HPF) Urine WBC (0-5/HPF) Ur Epithelial Cells (NONE-FEW) Urine Bacteria (NEGATIVE) Group A Strep (PCR) (NOT DETECT) Med Orders - Current: Current Medications Acetaminophen (Acetaminophen 325 Mg Tab) 650 mg PO Q4H PRN PRN Reason: Pain (Mild 1-3)/fever Albuterol/Ipratropium (Albuterol/Ipratropium 4 Gm Inhalation [place]) 0 gm INH Q4HRRT FORMERLY [facility], 1928–1983 Last Admin: 09/01/21 06:18 Dose: 1 puff Documented by: Albuterol/Ipratropium (Albuterol/Ipratropium 3.0-0.5 Mg/3 Ml Neb Soln) 3 ml NEB Q4HRRT PRN PRN Reason: Dyspnea Aspirin (Aspirin 81 Mg Tab.Ec) 81 mg PO DAILY [facility], 1928–1983 Atorvastatin Calcium (Atorvastatin 40 Mg Tab) 40 mg PO BEDTIME [facility], [facility]1983 Last Admin: 08/31/21 20:59 Dose: 40 mg Documented by: Baricitinib (Baricitinib 2 Mg Tab) 4 mg PO DAILY [facility], [facility]–1983 Last Admin: 08/31/21 17:15 Dose: 4 mg Documented by: Benzocaine/Menthol (Benzocaine/Cetylpyridinium/Menthol Lozenge) 1 lozenge MUCMEM Q6H PRN PRN Reason: Sore Throat Last Admin: 08/31/21 23:12 Dose: 1 lozenge Documented by: Benzonatate (Benzonatate 100 Mg Cap) 100 mg PO TID PRN PRN Reason: Cough Bupropion HCl (Bupropion 150 Mg Tab.Sr) 150 mg PO BID [facility], [facility]–1983 Last Admin: 08/31/21 21:00 Dose: 150 mg Documented by: Carvedilol (Carvedilol 6.25 Mg Tab) 6.25 mg PO BID [facility], [facility]1983 Last Admin: 08/31/21 21:00 Dose: 6.25 mg Documented by: Clopidogrel Bisulfate (Clopidogrel 75 Mg Tab) 75 mg PO DAILY [facility]1983 Dexamethasone (Dexamethasone 4 Mg Tab) 6 mg PO DAILY [facility]–1983 Enoxaparin Sodium (Enoxaparin 40 Mg/0.4 Ml Syringe) 40 mg SUBCUT Q24H RICHI Last Admin: 08/31/21 17:15 Dose: 40 mg Documented by: Guaifenesin (Guaifenesin 100 Mg/5 Ml Soln 5 Ml Ud Cup) 100 mg PO Q4H PRN PRN Reason: Cough Last Admin: 08/31/21 23:12 Dose: 100 mg Documented by: Sodium Chloride (Normal Saline) 1,000 mls @ 10 mls/hr IV STAT STA Stop: 09/04/21 14:06 Last Admin: 08/31/21 10:08 Dose: 10 mls/hr Documented by: Remdesivir 100 mg/ Sodium (Chloride) 100 mls @ 100 mls/hr IV Q24H RICHI Stop: 09/04/21 09:59 Lisinopril (Lisinopril 10 Mg Tab) 10 mg PO DAILY [facility], [facility]1983 Mirtazapine (Mirtazapine 15 Mg Tab) 30 mg PO BEDTIME [facility], [facility]1983 Last Admin: 08/31/21 20:59 Dose: 30 mg Documented by: Ondansetron HCl (Ondansetron 4 Mg/2 Ml Sdv) 4 mg IVPUSH Q4H PRN PRN Reason: nausea and vomiting Pantoprazole Sodium (Pantoprazole 40 Mg Tab.Cr) 40 mg PO DAILY [facility]1983 Sodium Chloride (Sodium Chloride 0.9% 10 Ml Syringe) 10 ml FLUSH ASDIRECTED PRN PRN Reason: Keep Vein Open Last Admin: 08/31/21 09:49 Dose: 10 ml Documented by: Sodium Chloride (Sodium Chloride 0.9% 2.5 Ml Syringe) 2.5 ml FLUSH ASDIRECTED PRN PRN Reason: Keep Vein Open Last Admin: 08/31/21 09:49 Dose: 2.5 ml Documented by: Venlafaxine HCl (Venlafaxine 37.5 Mg Cap.Er) 37.5 mg PO DAILY [facility], [facility]–1983 Discontinued Medications Albuterol/Ipratropium (Albuterol/Ipratropium 3.0-0.5 Mg/3 Ml Neb Soln) 6 ml NEB ONETIME ONE Stop: 08/31/21 09:39 Last Admin: 08/31/21 09:49 Dose: 6 ml Documented by: Albuterol/Ipratropium (Albuterol/Ipratropium 4 Gm Inhalation [place]) Confirm Administered Dose 4 gm INH .STK-MED ONE Stop: 08/31/21 23:03 Last Admin: 08/31/21 23:21 Dose: Not Given Documented by: Dexamethasone (Dexamethasone 10 Mg/Ml Sdv) 10 mg IVPUSH ONETIME ONE Stop: 08/31/21 09:34 Last Admin: 08/31/21 09:49 Dose: 10 mg Documented by: Remdesivir 200 mg/ Sodium (Chloride) 250 mls @ 250 mls/hr IV ONETIME ONE Stop: 08/31/21 09:40 Last Admin: 08/31/21 10:18 Dose: Not Given Documented by: Remdesivir 200 mg/ Sodium (Chloride) 250 mls @ 250 mls/hr IV ONETIME ONE Stop: 08/31/21 10:59 Last Admin: 08/31/21 10:16 Dose: 250 mls/hr Documented by: Iopamidol (Iopamidol 755 Mg/Ml 500 Ml Multipack Bottle) 100 ml IVPUSH ONETIME ONE Stop: 08/31/21 12:18 Last Admin: 08/31/21 12:18 Dose: 100 ml Documented by: Lorazepam (Lorazepam 2 Mg/Ml Sdv) 0.5 mg IVPUSH ONETIME ONE Stop: 08/31/21 09:55 Last Admin: 08/31/21 10:05 Dose: 0.5 mg Documented by: Ondansetron HCl (Ondansetron 4 Mg/2 Ml Sdv) Confirm Administered Dose 4 mg .ROUTE .STK-MED ONE Stop: 08/31/21 09:46 Last Admin: 08/31/21 09:48 Dose: Not Given Documented by: Ondansetron HCl (Ondansetron 4 Mg/2 Ml Sdv) 4 mg IVPUSH ONETIME ONE Stop: 08/31/21 09:50 Last Admin: 08/31/21 09:50 Dose: 4 mg Documented by: - Exam Quality Assessment: Supplemental Oxygen General: Alert, Oriented, Cooperative, Other (Patient is dyspneic) Neck: Supple, Trachea Midline Lungs: Decreased Breath Sounds, Rales Cardiovascular: Regular Rate, Regular Rhythm, No Murmurs GI/Abdominal Exam: Normal Bowel Sounds, Soft, Non-Tender Extremities: Normal Inspection, Normal Range of Motion, Non-Tender, No Pedal Edema. No: Michael's Sign Peripheral Pulses: 2+: Dorsalis Pedis (L), Dorsalis Pedis (R) Skin: Warm, Dry, Intact Neurological: No New Focal Deficit - Patient Data Lab Results Last 24 hrs: Laboratory Results - last 24 hr 08/31/21 08/31/21 08/31/21 Range/Units 09:37 09:37 09:37 WBC 4.87 (4.0-11.0) K/uL RBC 4.97 (4.50-5.90) M/uL Hgb 12.7 L (13.0-17.0) g/dL Hct 38.5 (38.0-50.0) % MCV 77.5 L (80.0-98.0) fL MCH 25.6 L (27.0-32.0) pg MCHC 33.0 (31.0-37.0) g/dL RDW Std Deviation 49.9 (28.0-62.0) fl RDW Coeff of Juve 18 H (11.0-15.0) % Plt Count 160 (150-400) K/uL MPV 10.40 (7.40-12.00) fL Neut % (Auto) 85.5 H (48.0-80.0) % Lymph % (Auto) 9.0 L (16.0-40.0) % [place] % (Auto) 5.5 (0.0-15.0) % Eos % (Auto) 0.0 (0.0-7.0) % Baso % (Auto) 0.0 (0.0-1.5) % Neut # (Auto) 4.2 (1.4-5.7) K/uL Lymph # (Auto) 0.4 L (0.6-2.4) K/uL [place] # (Auto) 0.3 (0.0-0.8) K/uL Eos # (Auto) 0.0 (0.0-0.7) K/uL Baso # (Auto) 0.0 (0.0-0.1) K/uL Nucleated RBC % 0.0 /100WBC Nucleated RBCs # 0 K/uL INR APTT (18.6-31.3) SEC D-Dimer, Quantitative (0.0-0.50) mg/L FEU VBG pH 7.41 (7.31-7.41) VBG pCO2 38 L (41-51) mmHG VBG pO2 < 30 mmHG VBG HCO3 24 (23-28) mEq/L VBG Total CO2 22 L (24-29) mmol/L VBG Base Excess -0.3 (-2.0-3.0) Sodium 136 (136-148) mmol/L Potassium 4.1 (3.5-5.1) mmol/L Chloride 101 (98-107) mmol/L Carbon Dioxide 23.8 (21.0-32.0) mmol/L BUN 16 (7.0-18.0) mg/dL Creatinine 1.2 (0.8-1.3) mg/dL Est Cr Clr Drug Dosing 83.53 mL/min Estimated GFR (MDRD) > 60.0 ml/min Glucose 103 (74-106) mg/dL Lactic Acid (0.4-2.0) mmol/L Calcium 8.2 L (8.5-10.1) mg/dL Total Bilirubin 0.4 (0.2-1.0) mg/dL Direct Bilirubin 0.20 (0.0-0.5) mg/dL AST 54 H (15-37) IU/L ALT 70 H (14-63) IU/L Alkaline Phosphatase 159 H (46-116) U/L Troponin I < 0.050 (0.000-0.056) ng/mL C-Reactive Protein (0.00-0.90) mg/dL B-Natriuretic Peptide (<100) PG/ML Total Protein 7.8 (6.4-8.2) g/dL Albumin 2.6 L (3.4-5.0) g/dL Globulin 5.2 H (2.6-4.0) g/dL Albumin/Globulin Ratio 0.5 L (0.9-1.6) Lipase 340 (73-393) U/L Urine Color Urine Appearance Urine pH (5.0-8.0) Ur Specific [place] (1.001-1.035) Urine Protein (NEGATIVE) mg/dL Urine Glucose (UA) (NEGATIVE) mg/dL Urine Ketones (NEGATIVE) mg/dL Urine Occult Blood (NEGATIVE) Urine Nitrite (NEGATIVE) Urine Bilirubin (NEGATIVE) Urine Urobilinogen (<2.0) EU/dL Ur Leukocyte Esterase (NEGATIVE) Urine RBC (0-2/HPF) Urine WBC (0-5/HPF) Ur Epithelial Cells (NONE-FEW) Urine Bacteria (NEGATIVE) Group A Strep (PCR) (NOT DETECT) 08/31/21 08/31/21 08/31/21 Range/Units 09:37 09:37 09:37 WBC (4.0-11.0) K/uL RBC (4.50-5.90) M/uL Hgb (13.0-17.0) g/dL Hct (38.0-50.0) % MCV (80.0-98.0) fL MCH (27.0-32.0) pg MCHC (31.0-37.0) g/dL RDW Std Deviation (28.0-62.0) fl RDW Coeff of Juve (11.0-15.0) % Plt Count (150-400) K/uL MPV (7.40-12.00) fL Neut % (Auto) (48.0-80.0) % Lymph % (Auto) (16.0-40.0) % [place] % (Auto) (0.0-15.0) % Eos % (Auto) (0.0-7.0) % Baso % (Auto) (0.0-1.5) % Neut # (Auto) (1.4-5.7) K/uL Lymph # (Auto) (0.6-2.4) K/uL [place] # (Auto) (0.0-0.8) K/uL Eos # (Auto) (0.0-0.7) K/uL Baso # (Auto) (0.0-0.1) K/uL Nucleated RBC % /100WBC Nucleated RBCs # K/uL INR 1.04 APTT 29.0 (18.6-31.3) SEC D-Dimer, Quantitative 1.68 H (0.0-0.50) mg/L FEU VBG pH (7.31-7.41) VBG pCO2 (41-51) mmHG VBG pO2 mmHG VBG HCO3 (23-28) mEq/L VBG Total CO2 (24-29) mmol/L VBG Base Excess (-2.0-3.0) Sodium (136-148) mmol/L Potassium (3.5-5.1) mmol/L Chloride (98-107) mmol/L Carbon Dioxide (21.0-32.0) mmol/L BUN (7.0-18.0) mg/dL Creatinine (0.8-1.3) mg/dL Est Cr Clr Drug Dosing mL/min Estimated GFR (MDRD) ml/min Glucose (74-106) mg/dL Lactic Acid 1.4 (0.4-2.0) mmol/L Calcium (8.5-10.1) mg/dL Total Bilirubin (0.2-1.0) mg/dL Direct Bilirubin (0.0-0.5) mg/dL AST (15-37) IU/L ALT (14-63) IU/L Alkaline Phosphatase (46-116) U/L Troponin I (0.000-0.056) ng/mL C-Reactive Protein (0.00-0.90) mg/dL B-Natriuretic Peptide 15 (<100) PG/ML Total Protein (6.4-8.2) g/dL Albumin (3.4-5.0) g/dL Globulin (2.6-4.0) g/dL Albumin/Globulin Ratio (0.9-1.6) Lipase (73-393) U/L Urine Color Urine Appearance Urine pH (5.0-8.0) Ur Specific [place] (1.001-1.035) Urine Protein (NEGATIVE) mg/dL Urine Glucose (UA) (NEGATIVE) mg/dL Urine Ketones (NEGATIVE) mg/dL Urine Occult Blood (NEGATIVE) Urine Nitrite (NEGATIVE) Urine Bilirubin (NEGATIVE) Urine Urobilinogen (<2.0) EU/dL Ur Leukocyte Esterase (NEGATIVE) Urine RBC (0-2/HPF) Urine WBC (0-5/HPF) Ur Epithelial Cells (NONE-FEW) Urine Bacteria (NEGATIVE) Group A Strep (PCR) (NOT DETECT) 08/31/21 08/31/21 09/01/21 Range/Units 09:37 13:05 00:05 WBC (4.0-11.0) K/uL RBC (4.50-5.90) M/uL Hgb (13.0-17.0) g/dL Hct (38.0-50.0) % MCV (80.0-98.0) fL MCH (27.0-32.0) pg MCHC (31.0-37.0) g/dL RDW Std Deviation (28.0-62.0) fl RDW Coeff of Juve (11.0-15.0) % Plt Count (150-400) K/uL MPV (7.40-12.00) fL Neut % (Auto) (48.0-80.0) % Lymph % (Auto) (16.0-40.0) % [place] % (Auto) (0.0-15.0) % Eos % (Auto) (0.0-7.0) % Baso % (Auto) (0.0-1.5) % Neut # (Auto) (1.4-5.7) K/uL Lymph # (Auto) (0.6-2.4) K/uL [place] # (Auto) (0.0-0.8) K/uL Eos # (Auto) (0.0-0.7) K/uL Baso # (Auto) (0.0-0.1) K/uL Nucleated RBC % /100WBC Nucleated RBCs # K/uL INR APTT (18.6-31.3) SEC D-Dimer, Quantitative (0.0-0.50) mg/L FEU VBG pH (7.31-7.41) VBG pCO2 (41-51) mmHG VBG pO2 mmHG VBG HCO3 (23-28) mEq/L VBG Total CO2 (24-29) mmol/L VBG Base Excess (-2.0-3.0) Sodium (136-148) mmol/L Potassium (3.5-5.1) mmol/L Chloride (98-107) mmol/L Carbon Dioxide (21.0-32.0) mmol/L BUN (7.0-18.0) mg/dL Creatinine (0.8-1.3) mg/dL Est Cr Clr Drug Dosing mL/min Estimated GFR (MDRD) ml/min Glucose (74-106) mg/dL Lactic Acid (0.4-2.0) mmol/L Calcium (8.5-10.1) mg/dL Total Bilirubin (0.2-1.0) mg/dL Direct Bilirubin (0.0-0.5) mg/dL AST (15-37) IU/L ALT (14-63) IU/L Alkaline Phosphatase (46-116) U/L Troponin I (0.000-0.056) ng/mL C-Reactive Protein 17.50 H (0.00-0.90) mg/dL B-Natriuretic Peptide (<100) PG/ML Total Protein (6.4-8.2) g/dL Albumin (3.4-5.0) g/dL Globulin (2.6-4.0) g/dL Albumin/Globulin Ratio (0.9-1.6) Lipase (73-393) U/L Urine Color YELLOW Urine Appearance CLEAR Urine pH 6.0 (5.0-8.0) Ur Specific [place] 1.015 (1.001-1.035) Urine Protein TRACE H (NEGATIVE) mg/dL Urine Glucose (UA) NEGATIVE (NEGATIVE) mg/dL Urine Ketones NEGATIVE (NEGATIVE) mg/dL Urine Occult Blood NEGATIVE (NEGATIVE) Urine Nitrite NEGATIVE (NEGATIVE) Urine Bilirubin NEGATIVE (NEGATIVE) Urine Urobilinogen 1.0 (<2.0) EU/dL Ur Leukocyte Esterase NEGATIVE (NEGATIVE) Urine RBC 0-1 (0-2/HPF) Urine WBC 0-1 (0-5/HPF) Ur Epithelial Cells RARE (NONE-FEW) Urine Bacteria RARE (NEGATIVE) Group A Strep (PCR) NOT DETECTED (NOT DETECT) 09/01/21 09/01/21 Range/Units 05:25 05:25 WBC 3.24 L (4.0-11.0) K/uL RBC 4.72 (4.50-5.90) M/uL Hgb 11.8 L (13.0-17.0) g/dL Hct 36.3 L (38.0-50.0) % MCV 76.9 L (80.0-98.0) fL MCH 25.0 L (27.0-32.0) pg MCHC 32.5 (31.0-37.0) g/dL RDW Std Deviation 49.6 (28.0-62.0) fl RDW Coeff of Juve 18 H (11.0-15.0) % Plt Count 203 (150-400) K/uL MPV 10.40 (7.40-12.00) fL Neut % (Auto) (48.0-80.0) % Lymph % (Auto) (16.0-40.0) % [place] % (Auto) (0.0-15.0) % Eos % (Auto) (0.0-7.0) % Baso % (Auto) (0.0-1.5) % Neut # (Auto) (1.4-5.7) K/uL Lymph # (Auto) (0.6-2.4) K/uL [place] # (Auto) (0.0-0.8) K/uL Eos # (Auto) (0.0-0.7) K/uL Baso # (Auto) (0.0-0.1) K/uL Nucleated RBC % 0.0 /100WBC Nucleated RBCs # 0 K/uL INR APTT (18.6-31.3) SEC D-Dimer, Quantitative (0.0-0.50) mg/L FEU VBG pH (7.31-7.41) VBG pCO2 (41-51) mmHG VBG pO2 mmHG VBG HCO3 (23-28) mEq/L VBG Total CO2 (24-29) mmol/L VBG Base Excess (-2.0-3.0) Sodium 137 (136-148) mmol/L Potassium 4.3 (3.5-5.1) mmol/L Chloride 103 (98-107) mmol/L Carbon Dioxide 21.7 (21.0-32.0) mmol/L BUN 17 (7.0-18.0) mg/dL Creatinine 0.9 (0.8-1.3) mg/dL Est Cr Clr Drug Dosing 124.57 mL/min Estimated GFR (MDRD) > 60.0 ml/min Glucose 133 H (74-106) mg/dL Lactic Acid (0.4-2.0) mmol/L Calcium 8.1 L (8.5-10.1) mg/dL Total Bilirubin 0.4 (0.2-1.0) mg/dL Direct Bilirubin (0.0-0.5) mg/dL AST 154 H (15-37) IU/L ALT 184 H (14-63) IU/L Alkaline Phosphatase 176 H (46-116) U/L Troponin I (0.000-0.056) ng/mL C-Reactive Protein (0.00-0.90) mg/dL B-Natriuretic Peptide (<100) PG/ML Total Protein 7.4 (6.4-8.2) g/dL Albumin 2.4 L (3.4-5.0) g/dL Globulin 5.0 H (2.6-4.0) g/dL Albumin/Globulin Ratio 0.5 L (0.9-1.6) Lipase (73-393) U/L Urine Color Urine Appearance Urine pH (5.0-8.0) Ur Specific [place] (1.001-1.035) Urine Protein (NEGATIVE) mg/dL Urine Glucose (UA) (NEGATIVE) mg/dL Urine Ketones (NEGATIVE) mg/dL Urine Occult Blood (NEGATIVE) Urine Nitrite (NEGATIVE) Urine Bilirubin (NEGATIVE) Urine Urobilinogen (<2.0) EU/dL Ur Leukocyte Esterase (NEGATIVE) Urine RBC (0-2/HPF) Urine WBC (0-5/HPF) Ur Epithelial Cells (NONE-FEW) Urine Bacteria (NEGATIVE) Group A Strep (PCR) (NOT DETECT) Result Diagrams: 09/01/21 05:25 09/01/21 05:25 Sepsis Event Note - Evaluation Sepsis Screening Result: Sepsis Risk - Focused Exam Vital Signs: Vital Signs Temp Pulse Pulse Resp BP BP Pulse Ox 09/01/21 07:00 66 26 H 110/67 89 L 09/01/21 06:18 09/01/21 06:00 60 26 H 121/71 91 L 09/01/21 05:00 96.7 F L 70 17 132/78 91 L 09/01/21 04:00 65 10 L 123/70 92 L 09/01/21 03:00 67 24 H 121/75 91 L 09/01/21 02:00 63 16 118/70 92 L 09/01/21 01:00 71 14 119/75 90 L 09/01/21 00:00 79 16 154/91 H 88 L 08/31/21 23:00 97.3 F 69 36 H 129/90 94 L 08/31/21 22:00 75 29 H 128/86 91 L 08/31/21 21:00 83 82 23 H 125/77 125/77 92 L 08/31/21 20:00 97.2 F 91 17 126/75 89 L Pulse Ox 09/01/21 07:00 09/01/21 06:18 90 L 09/01/21 06:00 09/01/21 05:00 09/01/21 04:00 09/01/21 03:00 09/01/21 02:00 09/01/21 01:00 09/01/21 00:00 08/31/21 23:00 08/31/21 22:00 08/31/21 21:00 08/31/21 20:00 - Problem List & Annotations (1) Pneumonia due to COVID-19 virus SNOMED Code(s): 088168937585030709 Code(s): U07.1 - COVID-19; J12.82 - PNEUMONIA DUE TO CORONAVIRUS DISEASE 2019 Status: Acute Current Visit: Yes (2) Respiratory failure with hypoxia SNOMED Code(s): 89790290064876690 Code(s): J96.91 - RESPIRATORY FAILURE, UNSPECIFIED WITH HYPOXIA Status: Acute Current Visit: Yes - Problem List Review Problem List Initiated/Reviewed/Updated: Yes - Plan Plan:: 45 yo male admitted for COVID pneumonia with acute hypoxic respiratory failure: Patient is currently on heated high flow 50 L, FiO2 60%. -Remdesivir 100 mg. Last day 09/04/2021. Baricitinib 4 mg daily. Dexamethasone 6 mg daily. Lovenox 40 mg. Physical therapy following. -Duo nebs q4hr prn. Combivent q4hr. Cepacol lozenges q6hr prn. Tessalon Perles TID prn. Guaifenesin 100 mg q4hr prn. -Patient instructed to prone position. Incentive spirometry. -Aspirin 81 mg. Atorvastatin 40 mg bedtime. Bupropion 150 mg bid. Carvedilol 6.25 mg. Plavix 75 mg. Lisinopril 10 mg -Mirtazapine 30 mg bedtime. Venlafaxine 37.5 mg -Heart healthy diet. <Wes Dorsey - Last Filed: 09/02/21 16:10> - Patient Data Vitals - Most Recent: Last Vital Signs Temp 36.0 C L 09/02/21 09:59 Pulse 61 09/02/21 15:37 Resp 17 09/02/21 15:37 BP 113/61 09/02/21 15:37 Pulse Ox 94 L 09/02/21 15:37 I&O - Last 24 Hours: Intake & Output 09/02/21 09/02/21 09/02/21 06:59 14:59 22:59 Intake Total 900 Output Total 900 Balance 0 Lab Results Last 24 Hours: Laboratory Results - last 24 hr 09/02/21 09/02/21 Range/Units 05:17 05:17 WBC 4.35 (4.0-11.0) K/uL RBC 4.79 (4.50-5.90) M/uL Hgb 11.9 L (13.0-17.0) g/dL Hct 37.3 L (38.0-50.0) % MCV 77.9 L (80.0-98.0) fL MCH 24.8 L (27.0-32.0) pg MCHC 31.9 (31.0-37.0) g/dL RDW Std Deviation 49.9 (28.0-62.0) fl RDW Coeff of Juve 18 H (11.0-15.0) % Plt Count 254 (150-400) K/uL MPV 10.60 (7.40-12.00) fL Neut % (Auto) 72.7 (48.0-80.0) % Lymph % (Auto) 16.3 (16.0-40.0) % [place] % (Auto) 10.8 (0.0-15.0) % Eos % (Auto) 0.0 (0.0-7.0) % Baso % (Auto) 0.2 (0.0-1.5) % Neut # (Auto) 3.2 (1.4-5.7) K/uL Lymph # (Auto) 0.7 (0.6-2.4) K/uL [place] # (Auto) 0.5 (0.0-0.8) K/uL Eos # (Auto) 0.0 (0.0-0.7) K/uL Baso # (Auto) 0.0 (0.0-0.1) K/uL Nucleated RBC % 0.0 /100WBC Nucleated RBCs # 0 K/uL Sodium 138 (136-148) mmol/L Potassium 4.7 (3.5-5.1) mmol/L Chloride 104 (98-107) mmol/L Carbon Dioxide 22.7 (21.0-32.0) mmol/L BUN 25 H (7.0-18.0) mg/dL Creatinine 1.0 (0.8-1.3) mg/dL Est Cr Clr Drug Dosing 112.12 mL/min Estimated GFR (MDRD) > 60.0 ml/min Glucose 125 H (74-106) mg/dL Calcium 8.0 L (8.5-10.1) mg/dL Total Bilirubin 0.4 (0.2-1.0) mg/dL AST 135 H (15-37) IU/L ALT 243 H (14-63) IU/L Alkaline Phosphatase 171 H (46-116) U/L Total Protein 6.7 (6.4-8.2) g/dL Albumin 2.5 L (3.4-5.0) g/dL Globulin 4.2 H (2.6-4.0) g/dL Albumin/Globulin Ratio 0.6 L (0.9-1.6) Chris Results Last 24 Hours: Microbiology 08/31/21 09:59 Aerobic Blood Culture - Preliminary Blood - Venous - Lab Draw NO GROWTH AFTER 2 DAYS Anaerobic Blood Culture - Preliminary NO GROWTH AFTER 2 DAYS 08/31/21 09:37 Aerobic Blood Culture - Preliminary Blood - Venous NO GROWTH AFTER 2 DAYS Anaerobic Blood Culture - Preliminary NO GROWTH AFTER 2 DAYS Med Orders - Current: Current Medications Acetaminophen (Acetaminophen 325 Mg Tab) 650 mg PO Q4H PRN PRN Reason: Pain (Mild 1-3)/fever Albuterol/Ipratropium (Albuterol/Ipratropium 4 Gm Inhalation [place]) 0 gm INH Q4HRRT FOR[facility], [facility]1983 Last Admin: 09/02/21 14:51 Dose: 1 puff Documented by: Albuterol/Ipratropium (Albuterol/Ipratropium 3.0-0.5 Mg/3 Ml Neb Soln) 3 ml NEB Q4HRRT PRN PRN Reason: Dyspnea Aspirin (Aspirin 81 Mg Tab.Ec) 81 mg PO DAILY [facility], [facility]1983 Last Admin: 09/02/21 09:01 Dose: 81 mg Documented by: Atorvastatin Calcium (Atorvastatin 40 Mg Tab) 40 mg PO BEDTIME [facility], [facility]1983 Last Admin: 09/01/21 21:45 Dose: 40 mg Documented by: Baricitinib (Baricitinib 2 Mg Tab) 4 mg PO DAILY [facility], [facility] Last Admin: 09/02/21 09:01 Dose: 4 mg Documented by: Benzocaine/Menthol (Benzocaine/Cetylpyridinium/Menthol Lozenge) 1 lozenge MUCMEM Q6H PRN PRN Reason: Sore Throat Last Admin: 09/01/21 21:47 Dose: 1 lozenge Documented by: Benzonatate (Benzonatate 100 Mg Cap) 100 mg PO TID PRN PRN Reason: Cough Bupropion HCl (Bupropion 150 Mg Tab.Sr) 150 mg PO BID [facility], [facility]1983 Last Admin: 09/02/21 09:06 Dose: 150 mg Documented by: Clopidogrel Bisulfate (Clopidogrel 75 Mg Tab) 75 mg PO DAILY [facility] Last Admin: 09/02/21 09:03 Dose: 75 mg Documented by: Dexamethasone (Dexamethasone 4 Mg Tab) 6 mg PO DAILY [facility] Last Admin: 09/02/21 09:02 Dose: 6 mg Documented by: Enoxaparin Sodium (Enoxaparin 40 Mg/0.4 Ml Syringe) 40 mg SUBCUT Q24H [facility] Last Admin: 09/01/21 17:30 Dose: 40 mg Documented by: Guaifenesin (Guaifenesin 100 Mg/5 Ml Soln 5 Ml Ud Cup) 100 mg PO Q4H PRN PRN Reason: Cough Last Admin: 08/31/21 23:12 Dose: 100 mg Documented by: Sodium Chloride (Normal Saline) 1,000 mls @ 10 mls/hr IV STAT STA Stop: 09/04/21 14:06 Last Admin: 08/31/21 10:08 Dose: 10 mls/hr Documented by: Remdesivir 100 mg/ Sodium (Chloride) 100 mls @ 100 mls/hr IV Q24H RICHI Stop: 09/04/21 09:59 Last Admin: 09/02/21 09:05 Dose: 100 mls/hr Documented by: Lisinopril (Lisinopril 10 Mg Tab) 10 mg PO DAILY [facility] Last Admin: 09/02/21 09:03 Dose: 10 mg Documented by: Mirtazapine (Mirtazapine 15 Mg Tab) 30 mg PO BEDTIME [facility] Last Admin: 09/01/21 21:41 Dose: 30 mg Documented by: Ondansetron HCl (Ondansetron 4 Mg/2 Ml Sdv) 4 mg IVPUSH Q4H PRN PRN Reason: nausea and vomiting Pantoprazole Sodium (Pantoprazole 40 Mg Tab.Cr) 40 mg PO DAILY [facility]1983 Last Admin: 09/02/21 09:03 Dose: 40 mg Documented by: Sodium Chloride (Sodium Chloride 0.9% 10 Ml Syringe) 10 ml FLUSH ASDIRECTED PRN PRN Reason: Keep Vein Open Last Admin: 08/31/21 09:49 Dose: 10 ml Documented by: Sodium Chloride (Sodium Chloride 0.9% 2.5 Ml Syringe) 2.5 ml FLUSH ASDIRECTED PRN PRN Reason: Keep Vein Open Last Admin: 08/31/21 09:49 Dose: 2.5 ml Documented by: Venlafaxine HCl (Venlafaxine 37.5 Mg Cap.Er) 37.5 mg PO DAILY [facility] Last Admin: 09/02/21 09:02 Dose: 37.5 mg Documented by: Discontinued Medications Albuterol/Ipratropium (Albuterol/Ipratropium 3.0-0.5 Mg/3 Ml Neb Soln) 6 ml NEB ONETIME ONE Stop: 08/31/21 09:39 Last Admin: 08/31/21 09:49 Dose: 6 ml Documented by: Albuterol/Ipratropium (Albuterol/Ipratropium 4 Gm Inhalation [place]) Confirm Administered Dose 4 gm INH .STK-MED ONE Stop: 08/31/21 23:03 Last Admin: 08/31/21 23:21 Dose: Not Given Documented by: Carvedilol (Carvedilol 6.25 Mg Tab) 6.25 mg PO BID [facility] Last Admin: 09/02/21 09:04 Dose: 6.25 mg Documented by: Dexamethasone (Dexamethasone 10 Mg/Ml Sdv) 10 mg IVPUSH ONETIME ONE Stop: 08/31/21 09:34 Last Admin: 08/31/21 09:49 Dose: 10 mg Documented by: Remdesivir 200 mg/ Sodium (Chloride) 250 mls @ 250 mls/hr IV ONETIME ONE Stop: 08/31/21 09:40 Last Admin: 08/31/21 10:18 Dose: Not Given Documented by: Remdesivir 200 mg/ Sodium (Chloride) 250 mls @ 250 mls/hr IV ONETIME ONE Stop: 08/31/21 10:59 Last Admin: 08/31/21 10:16 Dose: 250 mls/hr Documented by: Iopamidol (Iopamidol 755 Mg/Ml 500 Ml Multipack Bottle) 100 ml IVPUSH ONETIME ONE Stop: 08/31/21 12:18 Last Admin: 08/31/21 12:18 Dose: 100 ml Documented by: Lorazepam (Lorazepam 2 Mg/Ml Sdv) 0.5 mg IVPUSH ONETIME ONE Stop: 08/31/21 09:55 Last Admin: 08/31/21 10:05 Dose: 0.5 mg Documented by: Ondansetron HCl (Ondansetron 4 Mg/2 Ml Sdv) Confirm Administered Dose 4 mg .ROUTE .STK-MED ONE Stop: 08/31/21 09:46 Last Admin: 08/31/21 09:48 Dose: Not Given Documented by: Ondansetron HCl (Ondansetron 4 Mg/2 Ml Sdv) 4 mg IVPUSH ONETIME ONE Stop: 08/31/21 09:50 Last Admin: 08/31/21 09:50 Dose: 4 mg Documented by: - Patient Data Lab Results Last 24 hrs: Laboratory Results - last 24 hr 09/02/21 09/02/21 Range/Units 05:17 05:17 WBC 4.35 (4.0-11.0) K/uL RBC 4.79 (4.50-5.90) M/uL Hgb 11.9 L (13.0-17.0) g/dL Hct 37.3 L (38.0-50.0) % MCV 77.9 L (80.0-98.0) fL MCH 24.8 L (27.0-32.0) pg MCHC 31.9 (31.0-37.0) g/dL RDW Std Deviation 49.9 (28.0-62.0) fl RDW Coeff of Juve 18 H (11.0-15.0) % Plt Count 254 (150-400) K/uL MPV 10.60 (7.40-12.00) fL Neut % (Auto) 72.7 (48.0-80.0) % Lymph % (Auto) 16.3 (16.0-40.0) % [place] % (Auto) 10.8 (0.0-15.0) % Eos % (Auto) 0.0 (0.0-7.0) % Baso % (Auto) 0.2 (0.0-1.5) % Neut # (Auto) 3.2 (1.4-5.7) K/uL Lymph # (Auto) 0.7 (0.6-2.4) K/uL [place] # (Auto) 0.5 (0.0-0.8) K/uL Eos # (Auto) 0.0 (0.0-0.7) K/uL Baso # (Auto) 0.0 (0.0-0.1) K/uL Nucleated RBC % 0.0 /100WBC Nucleated RBCs # 0 K/uL Sodium 138 (136-148) mmol/L Potassium 4.7 (3.5-5.1) mmol/L Chloride 104 (98-107) mmol/L Carbon Dioxide 22.7 (21.0-32.0) mmol/L BUN 25 H (7.0-18.0) mg/dL Creatinine 1.0 (0.8-1.3) mg/dL Est Cr Clr Drug Dosing 112.12 mL/min Estimated GFR (MDRD) > 60.0 ml/min Glucose 125 H (74-106) mg/dL Calcium 8.0 L (8.5-10.1) mg/dL Total Bilirubin 0.4 (0.2-1.0) mg/dL AST 135 H (15-37) IU/L ALT 243 H (14-63) IU/L Alkaline Phosphatase 171 H (46-116) U/L Total Protein 6.7 (6.4-8.2) g/dL Albumin 2.5 L (3.4-5.0) g/dL Globulin 4.2 H (2.6-4.0) g/dL Albumin/Globulin Ratio 0.6 L (0.9-1.6) Result Diagrams: 09/02/21 05:17 09/02/21 05:17 Chris Results Last 24 hrs: Microbiology 08/31/21 09:59 Aerobic Blood Culture - Preliminary Blood - Venous - Lab Draw NO GROWTH AFTER 2 DAYS Anaerobic Blood Culture - Preliminary NO GROWTH AFTER 2 DAYS 08/31/21 09:37 Aerobic Blood Culture - Preliminary Blood - Venous NO GROWTH AFTER 2 DAYS Anaerobic Blood Culture - Preliminary NO GROWTH AFTER 2 DAYS Sepsis Event Note - Focused Exam Vital Signs: Vital Signs Temp Pulse Pulse Resp BP BP Pulse Ox 09/02/21 15:37 61 17 113/61 94 L 09/02/21 14:33 62 28 H 111/60 90 L 09/02/21 13:04 56 L 25 H 117/71 92 L 09/02/21 12:57 61 22 H 131/64 89 L 09/02/21 11:09 54 L 21 H 113/76 93 L 09/02/21 10:08 53 L 119/63 91 L 09/02/21 09:59 36.0 C L 63 39 H 119/67 91 L 09/02/21 09:04 52 L 123/76 09/02/21 09:03 123/76 09/02/21 07:59 49 L 126/79 94 L 09/02/21 07:00 55 L 13 123/73 90 L 09/02/21 06:00 55 L 29 H 115/66 95 09/02/21 05:00 56 L 37 H 112/71 88 L - Problem List & Annotations (1) Pneumonia due to COVID-19 virus SNOMED Code(s): 445581353499030890 Code(s): U07.1 - COVID-19; J12.82 - PNEUMONIA DUE TO CORONAVIRUS DISEASE 2019 Status: Acute Current Visit: Yes (2) Respiratory failure with hypoxia SNOMED Code(s): 69796200884347294 Code(s): J96.91 - RESPIRATORY FAILURE, UNSPECIFIED WITH HYPOXIA Status: Acute Current Visit: Yes (3) COVID-19 SNOMED Code(s): 690215513 Code(s): U07.1 - COVID-19 Status: Acute Current Visit: No (4) History of CVA (cerebrovascular accident) SNOMED Code(s): 916419260 Code(s): Z86.73 - PRSNL HX OF TIA (TIA), AND CEREB INFRC W/O RESID DEFICITS Status: Acute Current Visit: Yes (5) History of AL (myocardial infarction) SNOMED Code(s): 258041147 Code(s): I25.2 - OLD MYOCARDIAL INFARCTION Status: Acute Current Visit: Yes - Plan Plan:: I have seen and evaluated the patient and agree with the residents note unless specified in my note
[2021-09-01] MEDS: Clopidogrel 75 MG Tab PO SCH (08:14)
[2021-09-01] MEDS: Carvedilol 6.25 MG Tab PO SCH ×2 (08:14→21:46)
[2021-09-01] MEDS: Venlafaxine 37.5 MG Cap.ER PO SCH (08:14)
[2021-09-01] MEDS: Dexamethasone 4 MG Tab PO SCH (08:15)
[2021-09-01] MEDS: Pantoprazole 40 MG Tab.CR PO SCH (08:15)
[2021-09-01] MEDS: Lisinopril 10 MG Tab PO SCH (08:15)
[2021-09-01] MEDS: Aspirin 81 MG Tab.EC PO SCH (08:15)
[2021-09-01] MEDS: buPROPion 150 MG Tab.SR PO SCH ×2 (08:15→21:44)
[2021-09-01] MEDS: REMDESIVIR 100 MG in Sodium Chloride 0.9% 100 ML IV SCH (09:21)
[2021-09-01] MEDS: Enoxaparin 40 MG/0.4 ML Syringe SUBCUT SCH (17:30)
[2021-09-01] MEDS: Mirtazapine 15 MG Tab PO SCH (21:41)
[2021-09-01] MEDS: atorvaSTATin 40 MG Tab PO SCH (21:45)
[2021-09-01] MEDS: Benzocaine/Cetylpyridinium/Menthol Lozenge MUCMEM PRN (21:47)
[2021-09-02] MEDS: Albuterol/Ipratropium 4 GM Inhalation Spray INH SCH ×6 (02:24→19:28)
[2021-09-02 06:42] LABS: BLOOD UREA NITROGEN,BUN 25 mg/dL (7.0-18.0); CARBON DIOXIDE,CO2 22.7 mmol/L (21.0-32.0); CHLORIDE,CL 104 mmol/L (98-107); GLUCOSE RANDOM 125 mg/dL (74-106); POTASSIUM,K 4.7 mmol/L (3.5-5.1); SODIUM,NA 138 mmol/L (136-148)
[2021-09-02] MEDS: Aspirin 81 MG Tab.EC PO SCH (09:01)
[2021-09-02] MEDS: Dexamethasone 4 MG Tab PO SCH (09:02)
[2021-09-02] MEDS: Venlafaxine 37.5 MG Cap.ER PO SCH (09:02)
[2021-09-02] MEDS: Pantoprazole 40 MG Tab.CR PO SCH (09:03)
[2021-09-02] MEDS: Lisinopril 10 MG Tab PO SCH (09:03)
[2021-09-02] MEDS: Clopidogrel 75 MG Tab PO SCH (09:03)
[2021-09-02] MEDS: Carvedilol 6.25 MG Tab PO SCH (09:04)
[2021-09-02] MEDS: REMDESIVIR 100 MG in Sodium Chloride 0.9% 100 ML IV SCH (09:05)
[2021-09-02] MEDS: buPROPion 150 MG Tab.SR PO SCH ×2 (09:06→20:07)
--- NOTE | 2021-09-02 16:09 | PCM.PN ---
- General Info Date of Service: 09/02/21 Admission Dx/Problem (Free Text): Admission Diagnosis/Problem Admission Diagnosis/Problem Viral pneumonia Subjective Update: 45-year-old male with history of stroke, myocardial infarction and asthma who tested positive for Covid on 08/30/2021 presented to the ER with cough, shortness of breath and sharp chest pain. Patient also had vomiting and diarrhea. Was found to have an O2 saturation of 77%. Was placed on CPAP and t ransitioned to heated high flow. Patient had significant tachypnea and was admitted to the ICU for hypoxia secondary to Covid pneumonia. Patient started on remdesivir, dexamethasone, and baricitinib. CT angiography: No central or proximal pulmonary emboli. Diffuse patchy groundglass and parenchymal consolidation most likely reflecting Covid. CXR: Stable chest with possible subtle bilateral opacities. This morning the patient is on heated high flow at 50 L, FiO2 65%. Patient continues to feel very weak and tired. Patient has been intermittently bradycardic so Coreg has been stopped for now Functional Status: Reports: Tolerating Diet, Ambulating, Urinating - Review of Systems General: Reports: Weakness, Fatigue, Malaise Pulmonary: Reports: Shortness of Breath, Cough, Sputum Cardiovascular: Reports: Dyspnea on Exertion. Denies: Chest Pain, Palpitations, Orthopnea Gastrointestinal: Reports: Decreased Appetite. Denies: Abdominal Pain, Constipa tion, Diarrhea, Difficulty Swallowing Genitourinary: Denies: Dysuria, Frequency, Burning Musculoskeletal: Denies: Neck Pain, Shoulder Pain, Arm Pain Skin: Denies: Cyanosis, Jaundice, Mottled - Patient Data Vitals - Most Recent: Last Vital Signs Temp 36.0 C L 09/02/21 09:59 Pulse 61 09/02/21 15:37 Resp 17 09/02/21 15:37 BP 113/61 09/02/21 15:37 Pulse Ox 94 L 09/02/21 15:37 Weight - Most Recent: 101.741 kg I&O - Last 24 Hours: Intake & Output 09/02/21 09/02/21 09/02/21 06:59 14:59 22:59 Intake Total 900 Output Total 900 Balance 0 Lab Results Last 24 Hours: Laboratory Results - last 24 hr 09/02/21 09/02/21 Range/Units 05:17 05:17 WBC 4.35 (4.0-11.0) K/uL RBC 4.79 (4.50-5.90) M/uL Hgb 11.9 L (13.0-17.0) g/dL Hct 37.3 L (38.0-50.0) % MCV 77.9 L (80.0-98.0) fL MCH 24.8 L (27.0-32.0) pg MCHC 31.9 (31.0-37.0) g/dL RDW Std Deviation 49.9 (28.0-62.0) fl RDW Coeff of Juve 18 H (11.0-15.0) % Plt Count 254 (150-400) K/uL MPV 10.60 (7.40-12.00) fL Neut % (Auto) 72.7 (48.0-80.0) % Lymph % (Auto) 16.3 (16.0-40.0) % [place] % (Auto) 10.8 (0.0-15.0) % Eos % (Auto) 0.0 (0.0-7.0) % Baso % (Auto) 0.2 (0.0-1.5) % Neut # (Auto) 3.2 (1.4-5.7) K/uL Lymph # (Auto) 0.7 (0.6-2.4) K/uL [place] # (Auto) 0.5 (0.0-0.8) K/uL Eos # (Auto) 0.0 (0.0-0.7) K/uL Baso # (Auto) 0.0 (0.0-0.1) K/uL Nucleated RBC % 0.0 /100WBC Nucleated RBCs # 0 K/uL Sodium 138 (136-148) mmol/L Potassium 4.7 (3.5-5.1) mmol/L Chloride 104 (98-107) mmol/L Carbon Dioxide 22.7 (21.0-32.0) mmol/L BUN 25 H (7.0-18.0) mg/dL Creatinine 1.0 (0.8-1.3) mg/dL Est Cr Clr Drug Dosing 112.12 mL/min Estimated GFR (MDRD) > 60.0 ml/min Glucose 125 H (74-106) mg/dL Calcium 8.0 L (8.5-10.1) mg/dL Total Bilirubin 0.4 (0.2-1.0) mg/dL AST 135 H (15-37) IU/L ALT 243 H (14-63) IU/L Alkaline Phosphatase 171 H (46-116) U/L Total Protein 6.7 (6.4-8.2) g/dL Albumin 2.5 L (3.4-5.0) g/dL Globulin 4.2 H (2.6-4.0) g/dL Albumin/Globulin Ratio 0.6 L (0.9-1.6) Chris Results Last 24 Hours: Microbiology 08/31/21 09:59 Aerobic Blood Culture - Preliminary Blood - Venous - Lab Draw NO GROWTH AFTER 2 DAYS Anaerobic Blood Culture - Preliminary NO GROWTH AFTER 2 DAYS 08/31/21 09:37 Aerobic Blood Culture - Preliminary Blood - Venous NO GROWTH AFTER 2 DAYS Anaerobic Blood Culture - Preliminary NO GROWTH AFTER 2 DAYS Med Orders - Current: Current Medications Acetaminophen (Acetaminophen 325 Mg Tab) 650 mg PO Q4H PRN PRN Reason: Pain (Mild 1-3)/fever Albuterol/Ipratropium (Albuterol/Ipratropium 4 Gm Inhalation Sand[place]) 0 gm INH Q4HRRT [facility] Last Admin: 09/02/21 14:51 Dose: 1 puff Documented by: Albuterol/Ipratropium (Albuterol/Ipratropium 3.0-0.5 Mg/3 Ml Neb Soln) 3 ml NEB Q4HRRT PRN PRN Reason: Dyspnea Aspirin (Aspirin 81 Mg Tab.Ec) 81 mg PO DAILY [facility] Last Admin: 09/02/21 09:01 Dose: 81 mg Documented by: Atorvastatin Calcium (Atorvastatin 40 Mg Tab) 40 mg PO BEDTIME [facility] Last Admin: 09/01/21 21:45 Dose: 40 mg Documented by: Baricitinib (Baricitinib 2 Mg Tab) 4 mg PO DAILY [facility] Last Admin: 09/02/21 09:01 Dose: 4 mg Documented by: Benzocaine/Menthol (Benzocaine/Cetylpyridinium/Menthol Lozenge) 1 lozenge MUCMEM Q6H PRN PRN Reason: Sore Throat Last Admin: 09/01/21 21:47 Dose: 1 lozenge Documented by: Benzonatate (Benzonatate 100 Mg Cap) 100 mg PO TID PRN PRN Reason: Cough Bupropion HCl (Bupropion 150 Mg Tab.Sr) 150 mg PO BID [facility] Last Admin: 09/02/21 09:06 Dose: 150 mg Documented by: Clopidogrel Bisulfate (Clopidogrel 75 Mg Tab) 75 mg PO DAILY [facility] Last Admin: 09/02/21 09:03 Dose: 75 mg Documented by: Dexamethasone (Dexamethasone 4 Mg Tab) 6 mg PO DAILY [facility] Last Admin: 09/02/21 09:02 Dose: 6 mg Documented by: Enoxaparin Sodium (Enoxaparin 40 Mg/0.4 Ml Syringe) 40 mg SUBCUT Q24H [facility] Last Admin: 09/01/21 17:30 Dose: 40 mg Documented by: Guaifenesin (Guaifenesin 100 Mg/5 Ml Soln 5 Ml Ud Cup) 100 mg PO Q4H PRN PRN Reason: Cough Last Admin: 08/31/21 23:12 Dose: 100 mg Documented by: Sodium Chloride (Normal Saline) 1,000 mls @ 10 mls/hr IV STAT STA Stop: 09/04/21 14:06 Last Admin: 08/31/21 10:08 Dose: 10 mls/hr Documented by: Remdesivir 100 mg/ Sodium (Chloride) 100 mls @ 100 mls/hr IV Q24H [facility] Stop: 09/04/21 09:59 Last Admin: 09/02/21 09:05 Dose: 100 mls/hr Documented by: Lisinopril (Lisinopril 10 Mg Tab) 10 mg PO DAILY [facility] Last Admin: 09/02/21 09:03 Dose: 10 mg Documented by: Mirtazapine (Mirtazapine 15 Mg Tab) 30 mg PO BEDTIME [facility] Last Admin: 09/01/21 21:41 Dose: 30 mg Documented by: Ondansetron HCl (Ondansetron 4 Mg/2 Ml Sdv) 4 mg IVPUSH Q4H PRN PRN Reason: nausea and vomiting Pantoprazole Sodium (Pantoprazole 40 Mg Tab.Cr) 40 mg PO DAILY [facility] Last Admin: 09/02/21 09:03 Dose: 40 mg Documented by: Sodium Chloride (Sodium Chloride 0.9% 10 Ml Syringe) 10 ml FLUSH ASDIRECTED PRN PRN Reason: Keep Vein Open Last Admin: 08/31/21 09:49 Dose: 10 ml Documented by: Sodium Chloride (Sodium Chloride 0.9% 2.5 Ml Syringe) 2.5 ml FLUSH ASDIRECTED PRN PRN Reason: Keep Vein Open Last Admin: 08/31/21 09:49 Dose: 2.5 ml Documented by: Venlafaxine HCl (Venlafaxine 37.5 Mg Cap.Er) 37.5 mg PO DAILY [facility] Last Admin: 09/02/21 09:02 Dose: 37.5 mg Documented by: Discontinued Medications Albuterol/Ipratropium (Albuterol/Ipratropium 3.0-0.5 Mg/3 Ml Neb Soln) 6 ml NEB ONETIME ONE Stop: 08/31/21 09:39 Last Admin: 08/31/21 09:49 Dose: 6 ml Documented by: Albuterol/Ipratropium (Albuterol/Ipratropium 4 Gm Inhalation Sandgap) Confirm Administered Dose 4 gm INH .STK-MED ONE Stop: 08/31/21 23:03 Last Admin: 08/31/21 23:21 Dose: Not Given Documented by: Carvedilol (Carvedilol 6.25 Mg Tab) 6.25 mg PO BID [facility] Last Admin: 09/02/21 09:04 Dose: 6.25 mg Documented by: Dexamethasone (Dexamethasone 10 Mg/Ml Sdv) 10 mg IVPUSH ONETIME ONE Stop: 08/31/21 09:34 Last Admin: 08/31/21 09:49 Dose: 10 mg Documented by: Remdesivir 200 mg/ Sodium (Chloride) 250 mls @ 250 mls/hr IV ONETIME ONE Stop: 08/31/21 09:40 Last Admin: 08/31/21 10:18 Dose: Not Given Documented by: Remdesivir 200 mg/ Sodium (Chloride) 250 mls @ 250 mls/hr IV ONETIME ONE Stop: 08/31/21 10:59 Last Admin: 08/31/21 10:16 Dose: 250 mls/hr Documented by: Iopamidol (Iopamidol 755 Mg/Ml 500 Ml Multipack Bottle) 100 ml IVPUSH ONETIME ONE Stop: 08/31/21 12:18 Last Admin: 08/31/21 12:18 Dose: 100 ml Documented by: Lorazepam (Lorazepam 2 Mg/Ml Sdv) 0.5 mg IVPUSH ONETIME ONE Stop: 08/31/21 09:55 Last Admin: 08/31/21 10:05 Dose: 0.5 mg Documented by: Ondansetron HCl (Ondansetron 4 Mg/2 Ml Sdv) Confirm Administered Dose 4 mg .ROUTE .STK-MED ONE Stop: 08/31/21 09:46 Last Admin: 08/31/21 09:48 Dose: Not Given Documented by: Ondansetron HCl (Ondansetron 4 Mg/2 Ml Sdv) 4 mg IVPUSH ONETIME ONE Stop: 08/31/21 09:50 Last Admin: 08/31/21 09:50 Dose: 4 mg Documented by: - Exam Quality Assessment: Supplemental Oxygen General: Alert, Oriented Neck: Supple Lungs: Clear to Auscultation, Normal Respiratory Effort Cardiovascular: Regular Rate, Regular Rhythm GI/Abdominal Exam: Normal Bowel Sounds, Soft, Non-Tender - Patient Data Lab Results Last 24 hrs: Laboratory Results - last 24 hr 09/02/21 09/02/21 Range/Units 05:17 05:17 WBC 4.35 (4.0-11.0) K/uL RBC 4.79 (4.50-5.90) M/uL Hgb 11.9 L (13.0-17.0) g/dL Hct 37.3 L (38.0-50.0) % MCV 77.9 L (80.0-98.0) fL MCH 24.8 L (27.0-32.0) pg MCHC 31.9 (31.0-37.0) g/dL RDW Std Deviation 49.9 (28.0-62.0) fl RDW Coeff of Juve 18 H (11.0-15.0) % Plt Count 254 (150-400) K/uL MPV 10.60 (7.40-12.00) fL Neut % (Auto) 72.7 (48.0-80.0) % Lymph % (Auto) 16.3 (16.0-40.0) % [place] % (Auto) 10.8 (0.0-15.0) % Eos % (Auto) 0.0 (0.0-7.0) % Baso % (Auto) 0.2 (0.0-1.5) % Neut # (Auto) 3.2 (1.4-5.7) K/uL Lymph # (Auto) 0.7 (0.6-2.4) K/uL [place] # (Auto) 0.5 (0.0-0.8) K/uL Eos # (Auto) 0.0 (0.0-0.7) K/uL Baso # (Auto) 0.0 (0.0-0.1) K/uL Nucleated RBC % 0.0 /100WBC Nucleated RBCs # 0 K/uL Sodium 138 (136-148) mmol/L Potassium 4.7 (3.5-5.1) mmol/L Chloride 104 (98-107) mmol/L Carbon Dioxide 22.7 (21.0-32.0) mmol/L BUN 25 H (7.0-18.0) mg/dL Creatinine 1.0 (0.8-1.3) mg/dL Est Cr Clr Drug Dosing 112.12 mL/min Estimated GFR (MDRD) > 60.0 ml/min Glucose 125 H (74-106) mg/dL Calcium 8.0 L (8.5-10.1) mg/dL Total Bilirubin 0.4 (0.2-1.0) mg/dL AST 135 H (15-37) IU/L ALT 243 H (14-63) IU/L Alkaline Phosphatase 171 H (46-116) U/L Total Protein 6.7 (6.4-8.2) g/dL Albumin 2.5 L (3.4-5.0) g/dL Globulin 4.2 H (2.6-4.0) g/dL Albumin/Globulin Ratio 0.6 L (0.9-1.6) Result Diagrams: 09/02/21 05:17 09/02/21 05:17 Chris Results Last 24 hrs: Microbiology 08/31/21 09:59 Aerobic Blood Culture - Preliminary Blood - Venous - Lab Draw NO GROWTH AFTER 2 DAYS Anaerobic Blood Culture - Preliminary NO GROWTH AFTER 2 DAYS 08/31/21 09:37 Aerobic Blood Culture - Preliminary Blood - Venous NO GROWTH AFTER 2 DAYS Anaerobic Blood Culture - Preliminary NO GROWTH AFTER 2 DAYS Sepsis Event Note - Evaluation Sepsis Screening Result: No Definite Risk - Focused Exam Vital Signs: Vital Signs Temp Pulse Pulse Resp BP BP Pulse Ox 09/02/21 15:37 61 17 113/61 94 L 09/02/21 14:33 62 28 H 111/60 90 L 09/02/21 13:04 56 L 25 H 117/71 92 L 09/02/21 12:57 61 22 H 131/64 89 L 09/02/21 11:09 54 L 21 H 113/76 93 L 09/02/21 10:08 53 L 119/63 91 L 09/02/21 09:59 36.0 C L 63 39 H 119/67 91 L 09/02/21 09:04 52 L 123/76 09/02/21 09:03 123/76 09/02/21 07:59 49 L 126/79 94 L 09/02/21 07:00 55 L 13 123/73 90 L 09/02/21 06:00 55 L 29 H 115/66 95 09/02/21 05:00 56 L 37 H 112/71 88 L - Problem List & Annotations (1) Pneumonia due to COVID-19 virus SNOMED Code(s): 775629024159813316 Code(s): U07.1 - COVID-19; J12.82 - PNEUMONIA DUE TO CORONAVIRUS DISEASE 2018 Status: Acute Current Visit: Yes (2) Respiratory failure with hypoxia SNOMED Code(s): 77798284604446505 Code(s): J96.91 - RESPIRATORY FAILURE, UNSPECIFIED WITH HYPOXIA Status: A cute Current Visit: Yes (3) COVID-19 SNOMED Code(s): 325816769 Code(s): U07.1 - COVID-19 Status: Acute Current Visit: No (4) History of CVA (cerebrovascular accident) SNOMED Code(s): 020426135 Code(s): Z86.73 - PRSNL HX OF TIA (TIA), AND CEREB INFRC W/O RESID DEFICITS Status: Acute Current Visit: Yes (5) History of [place] (myocardial infarction) SNOMED Code(s): 756140760 Code(s): I25.2 - OLD MYOCARDIAL INFARCTION Status: Acute Current Visit: Yes - Problem List Review Problem List Initiated/Reviewed/Updated: Yes - Plan Plan:: 45 yo male admitted for COVID pneumonia with acute hypoxic respiratory failure: Patient is currently on heated high flow 50 L, FiO2 65%. -Remdesivir 100 mg. Last day 09/04/2021. Baricitinib 4 mg daily. Dexamethasone 6 mg daily. Lovenox 40 mg. Physical therapy following. -Duo nebs q4hr prn. Combivent q4hr. Cepacol lozenges q6hr prn. Tessalon Perles TID prn. Guaifenesin 100 mg q4hr prn. -Patient instructed to prone position. Incentive spirometry. -Aspirin 81 mg. Atorvastatin 40 mg bedtime. Bupropion 150 mg bid. . Plavix 75 mg. Lisinopril 10 mg -Mirtazapine 30 mg bedtime. Venlafaxine 37.5 mg -Heart healthy diet. Carvedilol 6.25 mg has been stopped temporarily due to bradycardia
[2021-09-02] MEDS: Enoxaparin 40 MG/0.4 ML Syringe SUBCUT SCH (16:52)
[2021-09-02] MEDS: atorvaSTATin 40 MG Tab PO SCH (20:00)
[2021-09-02] MEDS: Mirtazapine 15 MG Tab PO SCH (20:00)
[2021-09-03] MEDS: Albuterol/Ipratropium 4 GM Inhalation Spray INH SCH ×6 (02:06→22:33)
[2021-09-03 06:19] LABS: BLOOD UREA NITROGEN,BUN 24 mg/dL (7.0-18.0); CARBON DIOXIDE,CO2 22.1 mmol/L (21.0-32.0); CHLORIDE,CL 105 mmol/L (98-107); GLUCOSE RANDOM 81 mg/dL (74-106); POTASSIUM,K 4.1 mmol/L (3.5-5.1); SODIUM,NA 139 mmol/L (136-148)
[2021-09-03] MEDS: REMDESIVIR 100 MG in Sodium Chloride 0.9% 100 ML IV SCH (09:09)
[2021-09-03] MEDS: Aspirin 81 MG Tab.EC PO SCH (09:09)
[2021-09-03] MEDS: Venlafaxine 37.5 MG Cap.ER PO SCH (09:10)
[2021-09-03] MEDS: buPROPion 150 MG Tab.SR PO SCH ×2 (09:10→21:27)
[2021-09-03] MEDS: Clopidogrel 75 MG Tab PO SCH (09:10)
[2021-09-03] MEDS: Pantoprazole 40 MG Tab.CR PO SCH (09:10)
[2021-09-03] MEDS: Dexamethasone 4 MG Tab PO SCH (09:10)
[2021-09-03] MEDS: Lisinopril 10 MG Tab PO SCH (09:10)
--- NOTE | 2021-09-03 09:39 | PN ---
TH[facility] Physician - Brief Progress [id number]/26/2021 15:07[facility] [place] Carm[place] Robert, [place] - KENNYN (RAMSEY) - MWN JIGNESH MARK, QUINID+Date of Service 09/02/2021 15:07HPI/Even ts of Note eICU Progress NotePatient is a 45 y/o male who was transferred to the ICU due to worsening oxygenation requiring HHF due to Covid pneumonia. He was unable to tolerate CPAP. He has been mainta ined on decadron, remdesivir, baricitinib. Today, he is resting comfortably in no acute distress. VS 111/60, 26, 64, 93% on 65%/50L HHF. Discussed patient with bedside RN.eICU Recommendations:- continue current Covid management- encourage self-proning as toleratedThank you for allowing us to participat e in the care of your patient.Interventions Major-Hypoxemia - evaluation and management, Respiratory failure - evaluation and management
[2021-09-03] MEDS: guaiFENesin 100 MG/5 ML Soln 5 ML UD Cup PO PRN (11:30)
[2021-09-03] MEDS: Carbamide Peroxide 6.5% Otic Soln 15 ML Bottle EARRT SCH ×2 (13:00→21:26)
--- NOTE | 2021-09-03 13:55 | PCM.PN ---
<Julia Emmanuel - Last Filed: 09/03/21 13:59> - General Info Date of Service: 09/03/21 Admission Dx/Problem (Free Text): Admission Diagnosis/Problem Admission Diagnosis/Problem Viral pneumonia Subjective Update: 45-year-old male with Covid currently requiring ICU level care. Patient on remdesivir, dexamethasone, and baricitinib. Patient remains on heated high flow at 50 L, FiO2 65%. Patient continues to feel anxious regarding his dyspnea. This morning he complains of right ear pain that started last night, no history of acute otitis media. Patient has been intermittently bradycardic so Coreg has been stopped for now. Patient is eating. Patient has not had a bowel movement. - Review of Systems General: Reports: Weakness, Fatigue, Malaise. Denies: Fever, Chills HEENT: Reports: Ear Pain Pulmonary: Reports: Shortness of Breath, Cough. Denies: Pleuritic Chest Pain, Sputum Cardiovascular: Reports: Dyspnea on Exertion. Denies: Chest Pain, Palpitations Gastrointestinal: Denies: Abdominal Pain, Constipation, Diarrhea, Nausea, Vomiting Genitourinary: Denies: Dysuria Musculoskeletal: Denies: Leg Pain Skin: Denies: Cyanosis Neurological: Denies: Confusion, Dizziness, Headache, Numbness - Patient Data Vitals - Most Recent: Last Vital Signs Temp 97.3 F 09/03/21 12:00 Pulse 60 09/03/21 06:45 Resp 29 H 09/03/21 12:00 BP 110/73 09/03/21 12:00 Pulse Ox 92 L 09/03/21 12:00 Weight - Most Recent: 101.741 kg I&O - Last 24 Hours: Intake & Output 09/02/21 09/03/21 09/03/21 22:59 06:59 14:59 Intake Total 1250 1000 Output Total 990 1750 Balance 260 -750 Lab Results Last 24 Hours: Laboratory Results - last 24 hr 09/03/21 09/03/21 Range/Units 04:30 04:30 WBC 7.41 (4.0-11.0) K/uL RBC 4.85 (4.50-5.90) M/uL Hgb 12.1 L (13.0-17.0) g/dL Hct 37.4 L (38.0-50.0) % MCV 77.1 L (80.0-98.0) fL MCH 24.9 L (27.0-32.0) pg MCHC 32.4 (31.0-37.0) g/dL RDW Std Deviation 49.1 (28.0-62.0) fl RDW Coeff of Juve 17 H (11.0-15.0) % Plt Count 260 (150-400) K/uL MPV 10.40 (7.40-12.00) fL Neut % (Auto) 73.0 (48.0-80.0) % Lymph % (Auto) 16.2 (16.0-40.0) % [place] % (Auto) 10.8 (0.0-15.0) % Eos % (Auto) 0.0 (0.0-7.0) % Baso % (Auto) 0.0 (0.0-1.5) % Neut # (Auto) 5.4 (1.4-5.7) K/uL Lymph # (Auto) 1.2 (0.6-2.4) K/uL [place] # (Auto) 0.8 (0.0-0.8) K/uL Eos # (Auto) 0.0 (0.0-0.7) K/uL Baso # (Auto) 0.0 (0.0-0.1) K/uL Nucleated RBC % 0.0 /100WBC Nucleated RBCs # 0 K/uL Sodium 139 (136-148) mmol/L Potassium 4.1 (3.5-5.1) mmol/L Chloride 105 (98-107) mmol/L Carbon Dioxide 22.1 (21.0-32.0) mmol/L BUN 24 H (7.0-18.0) mg/dL Creatinine 1.0 (0.8-1.3) mg/dL Est Cr Clr Drug Dosing 112.12 mL/min Estimated GFR (MDRD) > 60.0 ml/min Glucose 81 (74-106) mg/dL Calcium 7.9 L (8.5-10.1) mg/dL Total Bilirubin 0.4 (0.2-1.0) mg/dL AST 70 H (15-37) IU/L ALT 197 H (14-63) IU/L Alkaline Phosphatase 157 H (46-116) U/L Total Protein 6.5 (6.4-8.2) g/dL Albumin 2.5 L (3.4-5.0) g/dL Globulin 4.0 (2.6-4.0) g/dL Albumin/Globulin Ratio 0.6 L (0.9-1.6) Chris Results Last 24 Hours: Microbiology 08/31/21 09:59 Aerobic Blood Culture - Preliminary Blood - Venous - Lab Draw NO GROWTH AFTER 3 DAYS Anaerobic Blood Culture - Preliminary NO GROWTH AFTER 3 DAYS 08/31/21 09:37 Aerobic Blood Culture - Preliminary Blood - Venous NO GROWTH AFTER 3 DAYS Anaerobic Blood Culture - Preliminary NO GROWTH AFTER 3 DAYS Med Orders - Current: Current Medications Acetaminophen (Acetaminophen 325 Mg Tab) 650 mg PO Q4H PRN PRN Reason: Pain (Mild 1-3)/fever Albuterol/Ipratropium (Albuterol/Ipratropium 4 Gm Inhalation [place]) 0 gm INH Q4HRRT [facility] Last Admin: 09/03/21 09:10 Dose: 1 puff Documented by: Albuterol/Ipratropium (Albuterol/Ipratropium 3.0-0.5 Mg/3 Ml Neb Soln) 3 ml NEB Q4HRRT PRN PRN Reason: Dyspnea Aspirin (Aspirin 81 Mg Tab.Ec) 81 mg PO DAILY [facility] Last Admin: 09/03/21 09:09 Dose: 81 mg Documented by: Atorvastatin Calcium (Atorvastatin 40 Mg Tab) 40 mg PO BEDTIME [facility] Last Admin: 09/02/21 20:00 Dose: 40 mg Documented by: Baricitinib (Baricitinib 2 Mg Tab) 4 mg PO DAILY [facility] Last Admin: 09/03/21 09:09 Dose: 4 mg Documented by: Benzocaine/Menthol (Benzocaine/Cetylpyridinium/Menthol Lozenge) 1 lozenge MUCMEM Q6H PRN PRN Reason: Sore Throat Last Admin: 09/01/21 21:47 Dose: 1 lozenge Documented by: Benzonatate (Benzonatate 100 Mg Cap) 100 mg PO TID PRN PRN Reason: Cough Bupropion HCl (Bupropion 150 Mg Tab.Sr) 150 mg PO BID [facility] Last Admin: 09/03/21 09:10 Dose: 150 mg Documented by: Carbamide Perox/Anhydrous Glycerin (Carbamide Peroxide 6.5% Otic Soln 15 Ml Bottle) 1 ml EARRT BID [facility] Last Admin: 09/03/21 13:00 Dose: 1 ml Documented by: Clopidogrel Bisulfate (Clopidogrel 75 Mg Tab) 75 mg PO DAILY [facility] Last Admin: 09/03/21 09:10 Dose: 75 mg Documented by: Dexamethasone (Dexamethasone 4 Mg Tab) 6 mg PO DAILY [facility] Last Admin: 09/03/21 09:10 Dose: 6 mg Documented by: Enoxaparin Sodium (Enoxaparin 40 Mg/0.4 Ml Syringe) 40 mg SUBCUT Q24H [facility] Last Admin: 09/02/21 16:52 Dose: 40 mg Documented by: Guaifenesin (Guaifenesin 100 Mg/5 Ml Soln 5 Ml Ud Cup) 100 mg PO Q4H PRN PRN Reason: Cough Last Admin: 09/03/21 11:30 Dose: 100 mg Documented by: Sodium Chloride (Normal Saline) 1,000 mls @ 10 mls/hr IV STAT STA Stop: 09/04/21 14:06 Last Admin: 08/31/21 10:08 Dose: 10 mls/hr Documented by: Remdesivir 100 mg/ Sodium (Chloride) 100 mls @ 100 mls/hr IV Q24H RICHI Stop: 09/04/21 09:59 Last Admin: 09/03/21 09:09 Dose: 100 mls/hr Documented by: Lisinopril (Lisinopril 10 Mg Tab) 10 mg PO DAILY [facility] Last Admin: 09/03/21 09:10 Dose: 10 mg Documented by: Mirtazapine (Mirtazapine 15 Mg Tab) 30 mg PO BEDTIME [facility] Last Admin: 09/02/21 20:00 Dose: 30 mg Documented by: Ondansetron HCl (Ondansetron 4 Mg/2 Ml Sdv) 4 mg IVPUSH Q4H PRN PRN Reason: nausea and vomiting Pantoprazole Sodium (Pantoprazole 40 Mg Tab.Cr) 40 mg PO DAILY [facility] Last Admin: 09/03/21 09:10 Dose: 40 mg Documented by: Sodium Chloride (Sodium Chloride 0.9% 10 Ml Syringe) 10 ml FLUSH ASDIRECTED PRN PRN Reason: Keep Vein Open Last Admin: 08/31/21 09:49 Dose: 10 ml Documented by: Sodium Chloride (Sodium Chloride 0.9% 2.5 Ml Syringe) 2.5 ml FLUSH ASDIRECTED PRN PRN Reason: Keep Vein Open Last Admin: 08/31/21 09:49 Dose: 2.5 ml Documented by: Venlafaxine HCl (Venlafaxine 37.5 Mg Cap.Er) 37.5 mg PO DAILY [facility] Last Admin: 09/03/21 09:10 Dose: 37.5 mg Documented by: Discontinued Medications Albuterol/Ipratropium (Albuterol/Ipratropium 3.0-0.5 Mg/3 Ml Neb Soln) 6 ml NEB ONETIME ONE Stop: 08/31/21 09:39 Last Admin: 08/31/21 09:49 Dose: 6 ml Documented by: Albuterol/Ipratropium (Albuterol/Ipratropium 4 Gm Inhalation [place]) Confirm Administered Dose 4 gm INH .STK-MED ONE Stop: 08/31/21 23:03 Last Admin: 08/31/21 23:21 Dose: Not Given Documented by: Carvedilol (Carvedilol 6.25 Mg Tab) 6.25 mg PO BID [facility] Last Admin: 09/02/21 09:04 Dose: 6.25 mg Documented by: Dexamethasone (Dexamethasone 10 Mg/Ml Sdv) 10 mg IVPUSH ONETIME ONE Stop: 08/31/21 09:34 Last Admin: 08/31/21 09:49 Dose: 10 mg Documented by: Remdesivir 200 mg/ Sodium (Chloride) 250 mls @ 250 mls/hr IV ONETIME ONE Stop: 08/31/21 09:40 Last Admin: 08/31/21 10:18 Dose: Not Given Documented by: Remdesivir 200 mg/ Sodium (Chloride) 250 mls @ 250 mls/hr IV ONETIME ONE Stop: 08/31/21 10:59 Last Admin: 08/31/21 10:16 Dose: 250 mls/hr Documented by: Iopamidol (Iopamidol 755 Mg/Ml 500 Ml Multipack Bottle) 100 ml IVPUSH ONETIME ONE Stop: 08/31/21 12:18 Last Admin: 08/31/21 12:18 Dose: 100 ml Documented by: Lorazepam (Lorazepam 2 Mg/Ml Sdv) 0.5 mg IVPUSH ONETIME ONE Stop: 08/31/21 09:55 Last Admin: 08/31/21 10:05 Dose: 0.5 mg Documented by: Ondansetron HCl (Ondansetron 4 Mg/2 Ml Sdv) Confirm Administered Dose 4 mg .ROUTE .STK-MED ONE Stop: 08/31/21 09:46 Last Admin: 08/31/21 09:48 Dose: Not Given Documented by: Ondansetron HCl (Ondansetron 4 Mg/2 Ml Sdv) 4 mg IVPUSH ONETIME ONE Stop: 08/31/21 09:50 Last Admin: 08/31/21 09:50 Dose: 4 mg Documented by: - Exam Quality Assessment: Supplemental Oxygen General: Alert, Oriented, Moderate Distress HEENT: Pupils Equal, Pupils Reactive, Other (Right ear canal shows dark impacted cerumen. Tympanic membrane retracted) Neck: Supple, Trachea Midline, No JVD Lungs: Decreased Breath Sounds, Crackles Cardiovascular: Regular Rate, Regular Rhythm GI/Abdominal Exam: Normal Bowel Sounds, Soft, Non-Tender Back Exam: Normal Inspection. No: CVA Tenderness (L), CVA Tenderness (R) Extremities: Normal Inspection, Normal Range of Motion, Non-Tender. No: No Pedal Edema Skin: Warm, Dry, Intact Neurological: No New Focal Deficit - Patient Data Lab Results Last 24 hrs: Laboratory Results - last 24 hr 09/03/21 09/03/21 Range/Units 04:30 04:30 WBC 7.41 (4.0-11.0) K/uL RBC 4.85 (4.50-5.90) M/uL Hgb 12.1 L (13.0-17.0) g/dL Hct 37.4 L (38.0-50.0) % MCV 77.1 L (80.0-98.0) fL MCH 24.9 L (27.0-32.0) pg MCHC 32.4 (31.0-37.0) g/dL RDW Std Deviation 49.1 (28.0-62.0) fl RDW Coeff of Juve 17 H (11.0-15.0) % Plt Count 260 (150-400) K/uL MPV 10.40 (7.40-12.00) fL Neut % (Auto) 73.0 (48.0-80.0) % Lymph % (Auto) 16.2 (16.0-40.0) % [place] % (Auto) 10.8 (0.0-15.0) % Eos % (Auto) 0.0 (0.0-7.0) % Baso % (Auto) 0.0 (0.0-1.5) % Neut # (Auto) 5.4 (1.4-5.7) K/uL Lymph # (Auto) 1.2 (0.6-2.4) K/uL [place] # (Auto) 0.8 (0.0-0.8) K/uL Eos # (Auto) 0.0 (0.0-0.7) K/uL Baso # (Auto) 0.0 (0.0-0.1) K/uL Nucleated RBC % 0.0 /100WBC Nucleated RBCs # 0 K/uL Sodium 139 (136-148) mmol/L Potassium 4.1 (3.5-5.1) mmol/L Chloride 105 (98-107) mmol/L Carbon Dioxide 22.1 (21.0-32.0) mmol/L BUN 24 H (7.0-18.0) mg/dL Creatinine 1.0 (0.8-1.3) mg/dL Est Cr Clr Drug Dosing 112.12 mL/min Estimated GFR (MDRD) > 60.0 ml/min Glucose 81 (74-106) mg/dL Calcium 7.9 L (8.5-10.1) mg/dL Total Bilirubin 0.4 (0.2-1.0) mg/dL AST 70 H (15-37) IU/L ALT 197 H (14-63) IU/L Alkaline Phosphatase 157 H (46-116) U/L Total Protein 6.5 (6.4-8.2) g/dL Albumin 2.5 L (3.4-5.0) g/dL Globulin 4.0 (2.6-4.0) g/dL Albumin/Globulin Ratio 0.6 L (0.9-1.6) Result Diagrams: 09/03/21 04:30 09/03/21 04:30 Chris Results Last 24 hrs: Microbiology 08/31/21 09:59 Aerobic Blood Culture - Preliminary Blood - Venous - Lab Draw NO GROWTH AFTER 3 DAYS Anaerobic Blood Culture - Preliminary NO GROWTH AFTER 3 DAYS 08/31/21 09:37 Aerobic Blood Culture - Preliminary Blood - Venous NO GROWTH AFTER 3 DAYS Anaerobic Blood Culture - Preliminary NO GROWTH AFTER 3 DAYS Sepsis Event Note - Evaluation Sepsis Screening Result: No Definite Risk - Focused Exam Vital Signs: Vital Signs Temp Pulse Resp BP BP Pulse Ox 09/03/21 12:00 97.3 F 29 H 110/73 92 L 09/03/21 11:00 25 H 118/69 89 L 09/03/21 10:00 35 H 88 L 09/03/21 09:10 128/77 09/03/21 09:00 38 H 128/77 87 L 09/03/21 08:00 97.1 F 27 H 132/71 89 L 09/03/21 06:45 96.9 F 60 26 H 94 L 09/03/21 06:00 96.9 F 62 20 125/76 94 L 09/03/21 04:58 96.9 F 62 22 H 123/71 91 L 09/03/21 04:00 96.9 F 61 34 H 123/71 92 L 09/03/21 03:00 96.9 F 62 34 H 124/66 88 L 09/03/21 02:00 96.9 F 61 30 H 120/67 90 L - Problem List & Annotations (1) Pneumonia due to COVID-19 virus SNOMED Code(s): 328733088192409873 Code(s): U07.1 - COVID-19; J12.82 - PNEUMONIA DUE TO CORONAVIRUS DISEASE 2019 Status: Acute Current Visit: Yes (2) Respiratory failure with hypoxia SNOMED Code(s): 96429476630681831 Code(s): J96.91 - RESPIRATORY FAILURE, UNSPECIFIED WITH HYPOXIA Status: Acute Current Visit: Yes - Problem List Review Problem List Initiated/Reviewed/Updated: Yes - My Orders Last 24 Hours: My Active Orders 09/03/21 12:00 Carbamide Peroxide [Debrox 6.5% Otic Soln] 1 ml EARRT BID 09/04/21 05:11 CBC WITH AUTO DIFF [HEME] DAILY COMPREHENSIVE METABOLIC PN,CMP [CHEM] DAILY 09/05/21 05:11 CBC WITH AUTO DIFF [HEME] DAILY COMPREHENSIVE METABOLIC PN,CMP [CHEM] DAILY 09/06/21 05:11 CBC WITH AUTO DIFF [HEME] DAILY COMPREHENSIVE METABOLIC PN,CMP [CHEM] DAILY 09/07/21 05:11 CBC WITH AUTO DIFF [HEME] DAILY COMPREHENSIVE METABOLIC PN,CMP [CHEM] DAILY 09/08/21 05:11 CBC WITH AUTO DIFF [HEME] DAILY COMPREHENSIVE METABOLIC PN,CMP [CHEM] DAILY - Assessment Assessment:: COVID: Patient is currently on heated high flow 50 L, FiO2 65%. -Remdesivir 100 mg. Last day 09/04/2021. Baricitinib 4 mg daily. Dexamethasone 6 mg daily. Lovenox 40 mg. Physical therapy following. -Duo nebs q4hr prn. Combivent q4hr. Cepacol lozenges q6hr prn. Tessalon Perles TID prn. Guaifenesin 100 mg q4hr prn. -Patient instructed to prone position. Incentive spirometry. -Aspirin 81 mg. Atorvastatin 40 mg bedtime. Bupropion 150 mg bid. . Plavix 75 mg. Lisinopril 10 mg -Mirtazapine 30 mg bedtime. Venlafaxine 37.5 mg -Heart healthy diet. Carvedilol 6.25 mg has been stopped temporarily due to bradycardia - Plan Plan:: I have seen and evaluated the patient and agree with the residents note unless specified in my note <Wes Dorsey - Last Filed: 09/08/21 13:20> - General Info Subjective Update: I have seen and evaluated the patient and agree with the residents note unless specified in my note - Patient Data Vitals - Most Recent: Last Vital Signs Temp 36.8 C 09/08/21 08:00 Pulse 70 09/08/21 08:00 Resp 16 09/08/21 08:00 BP 104/69 09/08/21 10:01 Pulse Ox 91 L 09/08/21 08:00 I&O - Last 24 Hours: Intake & Output 09/07/21 09/08/21 09/08/21 22:59 06:59 14:59 Intake Total 1500 1050 Output Total 0 Balance 1500 1050 Lab Results Last 24 Hours: Laboratory Results - last 24 hr 09/08/21 09/08/21 Range/Units 05:30 05:30 WBC 9.16 (4.0-11.0) K/uL RBC 4.74 (4.50-5.90) M/uL Hgb 11.8 L (13.0-17.0) g/dL Hct 36.8 L (38.0-50.0) % MCV 77.6 L (80.0-98.0) fL MCH 24.9 L (27.0-32.0) pg MCHC 32.1 (31.0-37.0) g/dL RDW Std Deviation 49.9 (28.0-62.0) fl RDW Coeff of Juve 18 H (11.0-15.0) % Plt Count 428 H (150-400) K/uL MPV 10.10 (7.40-12.00) fL Neut % (Auto) 72.6 (48.0-80.0) % Lymph % (Auto) 15.1 L (16.0-40.0) % [place] % (Auto) 10.6 (0.0-15.0) % Eos % (Auto) 1.7 (0.0-7.0) % Baso % (Auto) 0.0 (0.0-1.5) % Neut # (Auto) 6.7 H (1.4-5.7) K/uL Lymph # (Auto) 1.4 (0.6-2.4) K/uL [place] # (Auto) 1.0 H (0.0-0.8) K/uL Eos # (Auto) 0.2 (0.0-0.7) K/uL Baso # (Auto) 0.0 (0.0-0.1) K/uL Nucleated RBC % 0.0 /100WBC Nucleated RBCs # 0 K/uL Sodium 133 L (136-148) mmol/L Potassium 3.9 (3.5-5.1) mmol/L Chloride 101 (98-107) mmol/L Carbon Dioxide 24.1 (21.0-32.0) mmol/L BUN 21 H (7.0-18.0) mg/dL Creatinine 1.0 (0.8-1.3) mg/dL Est Cr Clr Drug Dosing 112.12 mL/min Estimated GFR (MDRD) > 60.0 ml/min Glucose 153 H (74-106) mg/dL Calcium 7.9 L (8.5-10.1) mg/dL Total Bilirubin 0.3 (0.2-1.0) mg/dL AST 55 H (15-37) IU/L ALT 209 H (14-63) IU/L Alkaline Phosphatase 151 H (46-116) U/L Total Protein 6.8 (6.4-8.2) g/dL Albumin 2.2 L (3.4-5.0) g/dL Globulin 4.6 H (2.6-4.0) g/dL Albumin/Globulin Ratio 0.5 L (0.9-1.6) Med Orders - Current: Current Medications Acetaminophen (Acetaminophen 325 Mg Tab) 650 mg PO Q4H PRN PRN Reason: Pain (Mild 1-3)/fever Albuterol/Ipratropium (Albuterol/Ipratropium 3.0-0.5 Mg/3 Ml Neb Soln) 3 ml NEB Q4HRRT PRN PRN Reason: Dyspnea Albuterol/Ipratropium (Albuterol/Ipratropium 4 Gm Inhalation [place]) 0 gm INH Q4HRRT PRN PRN Reason: Shortness of Breath Last Admin: 09/07/21 20:57 Dose: 1 puff Documented by: Aspirin (Aspirin 81 Mg Tab.Ec) 81 mg PO DAILY [facility] Last Admin: 09/08/21 10:02 Dose: 81 mg Documented by: Atorvastatin Calcium (Atorvastatin 40 Mg Tab) 40 mg PO BEDTIME [facility] Last Admin: 09/07/21 21:04 Dose: 40 mg Documented by: Baricitinib (Baricitinib 2 Mg Tab) 4 mg PO DAILY [facility] Last Admin: 09/08/21 10:01 Dose: 4 mg Documented by: Benzocaine/Menthol (Benzocaine/Cetylpyridinium/Menthol Lozenge) 1 lozenge MUCMEM Q6H PRN PRN Reason: Sore Throat Last Admin: 09/01/21 21:47 Dose: 1 lozenge Documented by: Benzonatate (Benzonatate 100 Mg Cap) 100 mg PO TID PRN PRN Reason: Cough Last Admin: 09/03/21 16:56 Dose: 100 mg Documented by: Bupropion HCl (Bupropion 150 Mg Tab.Sr) 150 mg PO BID [facility] Last Admin: 09/08/21 10:00 Dose: 150 mg Documented by: Clopidogrel Bisulfate (Clopidogrel 75 Mg Tab) 75 mg PO DAILY [facility] Last Admin: 09/08/21 10:00 Dose: 75 mg Documented by: Dexamethasone (Dexamethasone 4 Mg Tab) 6 mg PO DAILY [facility] Last Admin: 09/08/21 10:00 Dose: 6 mg Documented by: Enoxaparin Sodium (Enoxaparin 40 Mg/0.4 Ml Syringe) 40 mg SUBCUT Q24H [facility] Last Admin: 09/07/21 15:21 Dose: 40 mg Documented by: Guaifenesin (Guaifenesin 100 Mg/5 Ml Soln 5 Ml Ud Cup) 100 mg PO Q4H PRN PRN Reason: Cough Last Admin: 09/03/21 11:30 Dose: 100 mg Documented by: Lisinopril (Lisinopril 10 Mg Tab) 10 mg PO DAILY [facility] Last Admin: 09/08/21 10:01 Dose: 10 mg Documented by: Mirtazapine (Mirtazapine 15 Mg Tab) 30 mg PO BEDTIME [facility] Last Admin: 09/07/21 21:04 Dose: 30 mg Documented by: Ondansetron HCl (Ondansetron 4 Mg/2 Ml Sdv) 4 mg IVPUSH Q4H PRN PRN Reason: nausea and vomiting Pantoprazole Sodium (Pantoprazole 40 Mg Tab.Cr) 40 mg PO DAILY [facility] Last Admin: 09/08/21 10:00 Dose: 40 mg Documented by: Sodium Chloride (Sodium Chloride 0.9% 10 Ml Syringe) 10 ml FLUSH ASDIRECTED PRN PRN Reason: Keep Vein Open Last Admin: 08/31/21 09:49 Dose: 10 ml Documented by: Sodium Chloride (Sodium Chloride 0.9% 2.5 Ml Syringe) 2.5 ml FLUSH ASDIRECTED PRN PRN Reason: Keep Vein Open Last Admin: 08/31/21 09:49 Dose: 2.5 ml Documented by: Venlafaxine HCl (Venlafaxine 37.5 Mg Cap.Er) 37.5 mg PO DAILY [facility] Last Admin: 09/08/21 10:01 Dose: 37.5 mg Documented by: Discontinued Medications Albuterol/Ipratropium (Albuterol/Ipratropium 3.0-0.5 Mg/3 Ml Neb Soln) 6 ml NEB ONETIME ONE Stop: 08/31/21 09:39 Last Admin: 08/31/21 09:49 Dose: 6 ml Documented by: Albuterol/Ipratropium (Albuterol/Ipratropium 4 Gm Inhalation [place]) 0 gm INH Q4HRRT [facility] Last Admin: 09/07/21 14:25 Dose: Not Given Documented by: Albuterol/Ipratropium (Albuterol/Ipratropium 4 Gm Inhalation [place]) Confirm Administered Dose 4 gm INH .STK-MED ONE Stop: 08/31/21 23:03 Last Admin: 08/31/21 23:21 Dose: Not Given Documented by: Carbamide Perox/Anhydrous Glycerin (Carbamide Peroxide 6.5% Otic Soln 15 Ml Bottle) 1 ml EARRT BID [facility] Stop: 09/06/21 12:00 Last Admin: 09/06/21 09:31 Dose: 1 ml Documented by: Carvedilol (Carvedilol 6.25 Mg Tab) 6.25 mg PO BID [facility] Last Admin: 09/02/21 09:04 Dose: 6.25 mg Documented by: Dexamethasone (Dexamethasone 10 Mg/Ml Sdv) 10 mg IVPUSH ONETIME ONE Stop: 08/31/21 09:34 Last Admin: 08/31/21 09:49 Dose: 10 mg Documented by: Remdesivir 200 mg/ Sodium (Chloride) 250 mls @ 250 mls/hr IV ONETIME ONE Stop: 08/31/21 09:40 Last Admin: 08/31/21 10:18 Dose: Not Given Documented by: Remdesivir 200 mg/ Sodium (Chloride) 250 mls @ 250 mls/hr IV ONETIME ONE Stop: 08/31/21 10:59 Last Admin: 08/31/21 10:16 Dose: 250 mls/hr Documented by: Sodium Chloride (Normal Saline) 1,000 mls @ 10 mls/hr IV STAT STA Stop: 09/04/21 14:06 Last Admin: 08/31/21 10:08 Dose: 10 mls/hr Documented by: Remdesivir 100 mg/ Sodium (Chloride) 100 mls @ 100 mls/hr IV Q24H [facility] Stop: 09/04/21 09:59 Last Admin: 09/04/21 08:24 Dose: 100 mls/hr Documented by: Iopamidol (Iopamidol 755 Mg/Ml 500 Ml Multipack Bottle) 100 ml IVPUSH ONETIME ONE Stop: 08/31/21 12:18 Last Admin: 08/31/21 12:18 Dose: 100 ml Documented by: Lorazepam (Lorazepam 2 Mg/Ml Sdv) 0.5 mg IVPUSH ONETIME ONE Stop: 08/31/21 09:55 Last Admin: 08/31/21 10:05 Dose: 0.5 mg Documented by: Ondansetron HCl (Ondansetron 4 Mg/2 Ml Sdv) Confirm Administered Dose 4 mg .ROUTE .STK-MED ONE Stop: 08/31/21 09:46 Last Admin: 08/31/21 09:48 Dose: Not Given Documented by: Ondansetron HCl (Ondansetron 4 Mg/2 Ml Sdv) 4 mg IVPUSH ONETIME ONE Stop: 08/31/21 09:50 Last Admin: 08/31/21 09:50 Dose: 4 mg Documented by: - Patient Data Lab Results Last 24 hrs: Laboratory Results - last 24 hr 09/08/21 09/08/21 Range/Units 05:30 05:30 WBC 9.16 (4.0-11.0) K/uL RBC 4.74 (4.50-5.90) M/uL Hgb 11.8 L (13.0-17.0) g/dL Hct 36.8 L (38.0-50.0) % MCV 77.6 L (80.0-98.0) fL MCH 24.9 L (27.0-32.0) pg MCHC 32.1 (31.0-37.0) g/dL RDW Std Deviation 49.9 (28.0-62.0) fl RDW Coeff of Juve 18 H (11.0-15.0) % Plt Count 428 H (150-400) K/uL MPV 10.10 (7.40-12.00) fL Neut % (Auto) 72.6 (48.0-80.0) % Lymph % (Auto) 15.1 L (16.0-40.0) % Canadian % (Auto) 10.6 (0.0-15.0) % Eos % (Auto) 1.7 (0.0-7.0) % Baso % (Auto) 0.0 (0.0-1.5) % Neut # (Auto) 6.7 H (1.4-5.7) K/uL Lymph # (Auto) 1.4 (0.6-2.4) K/uL Canadian # (Auto) 1.0 H (0.0-0.8) K/uL Eos # (Auto) 0.2 (0.0-0.7) K/uL Baso # (Auto) 0.0 (0.0-0.1) K/uL Nucleated RBC % 0.0 /100WBC Nucleated RBCs # 0 K/uL Sodium 133 L (136-148) mmol/L Potassium 3.9 (3.5-5.1) mmol/L Chloride 101 (98-107) mmol/L Carbon Dioxide 24.1 (21.0-32.0) mmol/L BUN 21 H (7.0-18.0) mg/dL Creatinine 1.0 (0.8-1.3) mg/dL Est Cr Clr Drug Dosing 112.12 mL/min Estimated GFR (MDRD) > 60.0 ml/min Glucose 153 H (74-106) mg/dL Calcium 7.9 L (8.5-10.1) mg/dL Total Bilirubin 0.3 (0.2-1.0) mg/dL AST 55 H (15-37) IU/L ALT 209 H (14-63) IU/L Alkaline Phosphatase 151 H (46-116) U/L Total Protein 6.8 (6.4-8.2) g/dL Albumin 2.2 L (3.4-5.0) g/dL Globulin 4.6 H (2.6-4.0) g/dL Albumin/Globulin Ratio 0.5 L (0.9-1.6) Result Diagrams: 09/08/21 05:30 09/08/21 05:30 Sepsis Event Note - Focused Exam Vital Signs: Vital Signs Temp Pulse Resp BP BP Pulse Ox 09/08/21 10:01 104/69 09/08/21 08:00 36.8 C 70 16 104/69 91 L 09/08/21 04:03 36.6 C 19 110/50 L 95 - Problem List & Annotations (1) Pneumonia due to COVID-19 virus SNOMED Code(s): 982332103795976622 Code(s): U07.1 - COVID-19; J12.82 - PNEUMONIA DUE TO CORONAVIRUS DISEASE 2019 Status: Acute Current Visit: Yes (2) Respiratory failure with hypoxia SNOMED Code(s): 86571650954248583 Code(s): J96.91 - RESPIRATORY FAILURE, UNSPECIFIED WITH HYPOXIA Status: Acute Current Visit: Yes (3) COVID-19 SNOMED Code(s): 867427834 Code(s): U07.1 - COVID-19 Status: Acute Current Visit: No (4) History of CVA (cerebrovascular accident) SNOMED Code(s): 662288638 Code(s): Z86.73 - PRSNL HX OF TIA (TIA), AND CEREB INFRC W/O RESID DEFICITS Status: Acute Current Visit: Yes (5) History of WV (myocardial infarction) SNOMED Code(s): 770307385 Code(s): I25.2 - OLD MYOCARDIAL INFARCTION Status: Acute Current Visit: Yes - My Orders Last 24 Hours: My Active Orders 09/07/21 14:30 Albuterol/Ipratropium [Combivent Respimat] 0 gm INH Q4HRRT PRN
[2021-09-03] MEDS: Enoxaparin 40 MG/0.4 ML Syringe SUBCUT SCH (16:56)
[2021-09-03] MEDS: Mirtazapine 15 MG Tab PO SCH (21:26)
[2021-09-03] MEDS: atorvaSTATin 40 MG Tab PO SCH (21:26)
[2021-09-04] MEDS: Albuterol/Ipratropium 4 GM Inhalation Spray INH SCH ×6 (01:25→22:20)
[2021-09-04 07:42] LABS: BLOOD UREA NITROGEN,BUN 24 mg/dL (7.0-18.0); CARBON DIOXIDE,CO2 21.1 mmol/L (21.0-32.0); CHLORIDE,CL 101 mmol/L (98-107); GLUCOSE RANDOM 82 mg/dL (74-106); SODIUM,NA 135 mmol/L (136-148)
[2021-09-04] MEDS: Aspirin 81 MG Tab.EC PO SCH (08:24)
[2021-09-04] MEDS: Dexamethasone 4 MG Tab PO SCH (08:24)
[2021-09-04] MEDS: REMDESIVIR 100 MG in Sodium Chloride 0.9% 100 ML IV SCH (08:24)
[2021-09-04] MEDS: buPROPion 150 MG Tab.SR PO SCH ×2 (08:24→20:44)
[2021-09-04] MEDS: Pantoprazole 40 MG Tab.CR PO SCH (08:25)
[2021-09-04] MEDS: Clopidogrel 75 MG Tab PO SCH (08:25)
[2021-09-04] MEDS: Venlafaxine 37.5 MG Cap.ER PO SCH (08:25)
[2021-09-04] MEDS: Lisinopril 10 MG Tab PO SCH (08:25)
[2021-09-04] MEDS: Carbamide Peroxide 6.5% Otic Soln 15 ML Bottle EARRT SCH ×2 (09:24→20:44)
[2021-09-04] MEDS: Enoxaparin 40 MG/0.4 ML Syringe SUBCUT SCH (17:00)
--- NOTE | 2021-09-04 17:46 | PN ---
[facility] Physician - Brief Progress [id number]/28/2021 17:41[facility] Carmen Robert, [place] - MWN (RAMSEY) - MWN JIGNESH MARK, COVID+Date of Service 09/04/2021 17:41HPI/Even ts of Note eICU DAILY PROGRESS NOTE45 yo M with COVID19 PNA. He is sleeping on exam, breathing comfor tably on heated HFNC. SpO2 is 89%. Remdesivir completed today.Vitals and labs reviewed. On exam, slee ping comfortably. Breathing comfortably on HHFNC with spo2 89%, no tachypnea, no increased work of br eathing. NSR on tele with normal HR. ASSESSMENT:Acute hypoxic respiratory failureMultifocal community acquired PNA d/t [id number] via heated HFNC, wean as toleratedMaintain spo2 >90% and po2 > 60 mmHgDroplet isolation per protocolRecommend regular proningRecommend diuresis and fluid restrictiv e strategy as toleratedDexamethasoneRemdesivir completed todayBaricitinibBP well controlled with curr ent regimenInterventions Major-Hypoxemia - evaluation and management, Infection - evaluation and speedy gement, Respiratory failure - evaluation and management
--- NOTE | 2021-09-04 19:55 | PCM.PN ---
<Julia Emmanuel - Last Filed: 09/04/21 19:52> - General Info Date of Service: 09/04/21 Admission Dx/Problem (Free Text): Admission Diagnosis/Problem Admission Diagnosis/Problem Viral pneumonia Subjective Update: 45-year-old male with Covid currently requiring ICU level care. Patient completed remdesivir today. Patient is on dexamethasone, and baricitinib. Patient remains on heated high flow, 35 L, FiO2 60%. Patient states he feels better than yesterday and is less anxious regarding breathing today. Patient states his ear pain has improved. Patient has not had a bowel movement. - Review of Systems General: Denies: Fever, Chills Pulmonary: Reports: Shortness of Breath, Cough. Denies: Pleuritic Chest Pain Cardiovascular: Denies: Chest Pain, Palpitations Gastrointestinal: Denies: Abdominal Pain, Diarrhea, Nausea, Vomiting Genitourinary: Denies: Dysuria Musculoskeletal: Denies: Leg Pain Skin: Denies: Cyanosis, Diaphoresis Neurological: Denies: Confusion, Dizziness, Headache, Numbness - Patient Data Vitals - Most Recent: Last Vital Signs Temp 98.1 F 09/04/21 17:00 Pulse 60 09/03/21 06:45 Resp 21 H 09/04/21 19:00 BP 113/69 09/04/21 19:00 Pulse Ox 90 L 09/04/21 19:00 Weight - Most Recent: 100.062 kg I&O - Last 24 Hours: Intake & Output 09/04/21 09/04/21 09/04/21 06:59 14:59 22:59 Intake Total 850 100 800 Output Total 900 800 Balance -50 100 0 Lab Results Last 24 Hours: Laboratory Results - last 24 hr 09/04/21 09/04/21 Range/Units 05:35 05:35 WBC 7.20 (4.0-11.0) K/uL RBC 4.86 (4.50-5.90) M/uL Hgb 12.2 L (13.0-17.0) g/dL Hct 37.2 L (38.0-50.0) % MCV 76.5 L (80.0-98.0) fL MCH 25.1 L (27.0-32.0) pg MCHC 32.8 (31.0-37.0) g/dL RDW Std Deviation 48.4 (28.0-62.0) fl RDW Coeff of Juve 17 H (11.0-15.0) % Plt Count 284 (150-400) K/uL MPV 10.20 (7.40-12.00) fL Neut % (Auto) 72.7 (48.0-80.0) % Lymph % (Auto) 16.3 (16.0-40.0) % [place] % (Auto) 10.6 (0.0-15.0) % Eos % (Auto) 0.3 (0.0-7.0) % Baso % (Auto) 0.1 (0.0-1.5) % Neut # (Auto) 5.2 (1.4-5.7) K/uL Lymph # (Auto) 1.2 (0.6-2.4) K/uL [place] # (Auto) 0.8 (0.0-0.8) K/uL Eos # (Auto) 0.0 (0.0-0.7) K/uL Baso # (Auto) 0.0 (0.0-0.1) K/uL Nucleated RBC % 0.0 /100WBC Nucleated RBCs # 0 K/uL Sodium 135 L (136-148) mmol/L Potassium 4.0 (3.5-5.1) mmol/L Chloride 101 (98-107) mmol/L Carbon Dioxide 21.1 (21.0-32.0) mmol/L BUN 24 H (7.0-18.0) mg/dL Creatinine 1.0 (0.8-1.3) mg/dL Est Cr Clr Drug Dosing 112.12 mL/min Estimated GFR (MDRD) > 60.0 ml/min Glucose 82 (74-106) mg/dL Calcium 7.6 L (8.5-10.1) mg/dL Total Bilirubin 0.5 (0.2-1.0) mg/dL AST 37 (15-37) IU/L ALT 145 H (14-63) IU/L Alkaline Phosphatase 156 H (46-116) U/L Total Protein 6.6 (6.4-8.2) g/dL Albumin 2.6 L (3.4-5.0) g/dL Globulin 4.0 (2.6-4.0) g/dL Albumin/Globulin Ratio 0.7 L (0.9-1.6) Chris Results Last 24 Hours: Microbiology 08/31/21 09:59 Aerobic Blood Culture - Preliminary Blood - Venous - Lab Draw NO GROWTH AFTER 4 DAYS Anaerobic Blood Culture - Preliminary NO GROWTH AFTER 4 DAYS 08/31/21 09:37 Aerobic Blood Culture - Preliminary Blood - Venous NO GROWTH AFTER 4 DAYS Anaerobic Blood Culture - Preliminary NO GROWTH AFTER 4 DAYS Med Orders - Current: Current Medications Acetaminophen (Acetaminophen 325 Mg Tab) 650 mg PO Q4H PRN PRN Reason: Pain (Mild 1-3)/fever Albuterol/Ipratropium (Albuterol/Ipratropium 4 Gm Inhalation Schneider) 0 gm INH Q4HRRT [facility] Last Admin: 09/04/21 17:30 Dose: 1 puff Documented by: Albuterol/Ipratropium (Albuterol/Ipratropium 3.0-0.5 Mg/3 Ml Neb Soln) 3 ml NEB Q4HRRT PRN PRN Reason: Dyspnea Aspirin (Aspirin 81 Mg Tab.Ec) 81 mg PO DAILY [facility] Last Admin: 09/04/21 08:24 Dose: 81 mg Documented by: Atorvastatin Calcium (Atorvastatin 40 Mg Tab) 40 mg PO BEDTIME [facility] Last Admin: 09/03/21 21:26 Dose: 40 mg Documented by: Baricitinib (Baricitinib 2 Mg Tab) 4 mg PO DAILY [facility] Last Admin: 09/04/21 08:24 Dose: 4 mg Documented by: Benzocaine/Menthol (Benzocaine/Cetylpyridinium/Menthol Lozenge) 1 lozenge MUCMEM Q6H PRN PRN Reason: Sore Throat Last Admin: 09/01/21 21:47 Dose: 1 lozenge Documented by: Benzonatate (Benzonatate 100 Mg Cap) 100 mg PO TID PRN PRN Reason: Cough Last Admin: 09/03/21 16:56 Dose: 100 mg Documented by: Bupropion HCl (Bupropion 150 Mg Tab.Sr) 150 mg PO BID [facility] Last Admin: 09/04/21 08:24 Dose: 150 mg Documented by: Carbamide Perox/Anhydrous Glycerin (Carbamide Peroxide 6.5% Otic Soln 15 Ml Bottle) 1 ml EARRT BID [facility] Last Admin: 09/04/21 09:24 Dose: 1 ml Documented by: Clopidogrel Bisulfate (Clopidogrel 75 Mg Tab) 75 mg PO DAILY [facility] Last Admin: 09/04/21 08:25 Dose: 75 mg Documented by: Dexamethasone (Dexamethasone 4 Mg Tab) 6 mg PO [facility]ILY [facility] Last Admin: 09/04/21 08:24 Dose: 6 mg Documented by: Enoxaparin Sodium (Enoxaparin 40 Mg/0.4 Ml Syringe) 40 mg SUBCUT Q24H [facility] Last Admin: 09/04/21 17:00 Dose: 40 mg Documented by: Guaifenesin (Guaifenesin 100 Mg/5 Ml Soln 5 Ml Ud Cup) 100 mg PO Q4H PRN PRN Reason: Cough Last Admin: 09/03/21 11:30 Dose: 100 mg Documented by: Lisinopril (Lisinopril 10 Mg Tab) 10 mg PO DAILY [facility] Last Admin: 09/04/21 08:25 Dose: 10 mg Documented by: Mirtazapine (Mirtazapine 15 Mg Tab) 30 mg PO BEDTIME [facility] Last Admin: 09/03/21 21:26 Dose: 30 mg Documented by: Ondansetron HCl (Ondansetron 4 Mg/2 Ml Sdv) 4 mg IVPUSH Q4H PRN PRN Reason: nausea and vomiting Pantoprazole Sodium (Pantoprazole 40 Mg Tab.Cr) 40 mg PO [facility]ILY [facility] Last Admin: 09/04/21 08:25 Dose: 40 mg Documented by: Sodium Chloride (Sodium Chloride 0.9% 10 Ml Syringe) 10 ml FLUSH ASDIRECTED PRN PRN Reason: Keep Vein Open Last Admin: 08/31/21 09:49 Dose: 10 ml Documented by: Sodium Chloride (Sodium Chloride 0.9% 2.5 Ml Syringe) 2.5 ml FLUSH ASDIRECTED PRN PRN Reason: Keep Vein Open Last Admin: 08/31/21 09:49 Dose: 2.5 ml Documented by: Venlafaxine HCl (Venlafaxine 37.5 Mg Cap.Er) 37.5 mg PO DAILY [facility] Last Admin: 09/04/21 08:25 Dose: 37.5 mg Documented by: Discontinued Medications Albuterol/Ipratropium (Albuterol/Ipratropium 3.0-0.5 Mg/3 Ml Neb Soln) 6 ml NEB ONETIME ONE Stop: 08/31/21 09:39 Last Admin: 08/31/21 09:49 Dose: 6 ml Documented by: Albuterol/Ipratropium (Albuterol/Ipratropium 4 Gm Inhalation Schneider) Confirm Administered Dose 4 gm INH .STK-MED ONE Stop: 08/31/21 23:03 Last Admin: 08/31/21 23:21 Dose: Not Given Documented by: Carvedilol (Carvedilol 6.25 Mg Tab) 6.25 mg PO BID [facility] Last Admin: 09/02/21 09:04 Dose: 6.25 mg Documented by: Dexamethasone (Dexamethasone 10 Mg/Ml Sdv) 10 mg IVPUSH ONETIME ONE Stop: 08/31/21 09:34 Last Admin: 08/31/21 09:49 Dose: 10 mg Documented by: Remdesivir 200 mg/ Sodium (Chloride) 250 mls @ 250 mls/hr IV ONETIME ONE Stop: 08/31/21 09:40 Last Admin: 08/31/21 10:18 Dose: Not Given Documented by: Remdesivir 200 mg/ Sodium (Chloride) 250 mls @ 250 mls/hr IV ONETIME ONE Stop: 08/31/21 10:59 Last Admin: 08/31/21 10:16 Dose: 250 mls/hr Documented by: Sodium Chloride (Normal Saline) 1,000 mls @ 10 mls/hr IV STAT STA Stop: 09/04/21 14:06 Last Admin: 08/31/21 10:08 Dose: 10 mls/hr Documented by: Remdesivir 100 mg/ Sodium (Chloride) 100 mls @ 100 mls/hr IV Q24H [facility] Stop: 09/04/21 09:59 Last Admin: 09/04/21 08:24 Dose: 100 mls/hr Documented by: Iopamidol (Iopamidol 755 Mg/Ml 500 Ml Multipack Bottle) 100 ml IVPUSH ONETIME ONE Stop: 08/31/21 12:18 Last Admin: 08/31/21 12:18 Dose: 100 ml Documented by: Lorazepam (Lorazepam 2 Mg/Ml Sdv) 0.5 mg IVPUSH ONETIME ONE Stop: 08/31/21 09:55 Last Admin: 08/31/21 10:05 Dose: 0.5 mg Documented by: Ondansetron HCl (Ondansetron 4 Mg/2 Ml Sdv) Confirm Administered Dose 4 mg .ROUTE .STK-MED ONE Stop: 08/31/21 09:46 Last Admin: 08/31/21 09:48 Dose: Not Given Documented by: Ondansetron HCl (Ondansetron 4 Mg/2 Ml Sdv) 4 mg IVPUSH ONETIME ONE Stop: 08/31/21 09:50 Last Admin: 08/31/21 09:50 Dose: 4 mg Documented by: - Exam Quality Assessment: Supplemental Oxygen General: Alert, Oriented, Cooperative, No Acute Distress HEENT: Pupils Equal, Pupils Reactive Neck: Supple, Trachea Midline Lungs: Decreased Breath Sounds, Rales Cardiovascular: Regular Rate, Regular Rhythm GI/Abdominal Exam: Normal Bowel Sounds, Soft, Non-Tender Extremities: Normal Inspection, No Pedal Edema Peripheral Pulses: 2+: Dorsalis Pedis (L), Dorsalis Pedis (R) Skin: Warm, Dry, Intact Neurological: No New Focal Deficit - Patient Data Lab Results Last 24 hrs: Laboratory Results - last 24 hr 09/04/21 09/04/21 Range/Units 05:35 05:35 WBC 7.20 (4.0-11.0) K/uL RBC 4.86 (4.50-5.90) M/uL Hgb 12.2 L (13.0-17.0) g/dL Hct 37.2 L (38.0-50.0) % MCV 76.5 L (80.0-98.0) fL MCH 25.1 L (27.0-32.0) pg MCHC 32.8 (31.0-37.0) g/dL RDW Std Deviation 48.4 (28.0-62.0) fl RDW Coeff of Juve 17 H (11.0-15.0) % Plt Count 284 (150-400) K/uL MPV 10.20 (7.40-12.00) fL Neut % (Auto) 72.7 (48.0-80.0) % Lymph % (Auto) 16.3 (16.0-40.0) % [place] % (Auto) 10.6 (0.0-15.0) % Eos % (Auto) 0.3 (0.0-7.0) % Baso % (Auto) 0.1 (0.0-1.5) % Neut # (Auto) 5.2 (1.4-5.7) K/uL Lymph # (Auto) 1.2 (0.6-2.4) K/uL [place] # (Auto) 0.8 (0.0-0.8) K/uL Eos # (Auto) 0.0 (0.0-0.7) K/uL Baso # (Auto) 0.0 (0.0-0.1) K/uL Nucleated RBC % 0.0 /100WBC Nucleated RBCs # 0 K/uL Sodium 135 L (136-148) mmol/L Potassium 4.0 (3.5-5.1) mmol/L Chloride 101 (98-107) mmol/L Carbon Dioxide 21.1 (21.0-32.0) mmol/L BUN 24 H (7.0-18.0) mg/dL Creatinine 1.0 (0.8-1.3) mg/dL Est Cr Clr Drug Dosing 112.12 mL/min Estimated GFR (MDRD) > 60.0 ml/min Glucose 82 (74-106) mg/dL Calcium 7.6 L (8.5-10.1) mg/dL Total Bilirubin 0.5 (0.2-1.0) mg/dL AST 37 (15-37) IU/L ALT 145 H (14-63) IU/L Alkaline Phosphatase 156 H (46-116) U/L Total Protein 6.6 (6.4-8.2) g/dL Albumin 2.6 L (3.4-5.0) g/dL Globulin 4.0 (2.6-4.0) g/dL Albumin/Globulin Ratio 0.7 L (0.9-1.6) Result Diagrams: 09/04/21 05:35 09/04/21 05:35 Chris Results Last 24 hrs: Microbiology 08/31/21 09:59 Aerobic Blood Culture - Preliminary Blood - Venous - Lab Draw NO GROWTH AFTER 4 DAYS Anaerobic Blood Culture - Preliminary NO GROWTH AFTER 4 DAYS 08/31/21 09:37 Aerobic Blood Culture - Preliminary Blood - Venous NO GROWTH AFTER 4 DAYS Anaerobic Blood Culture - Preliminary NO GROWTH AFTER 4 DAYS Sepsis Event Note - Evaluation Sepsis Screening Result: No Definite Risk - Focused Exam Vital Signs: Vital Signs Temp Resp BP BP Pulse Ox 09/04/21 19:00 21 H 113/69 90 L 09/04/21 18:00 35 H 122/74 89 L 09/04/21 17:00 98.1 F 43 H 106/62 90 L 09/04/21 16:00 41 H 105/64 95 09/04/21 15:00 40 H 105/66 95 09/04/21 14:00 39 H 100/63 94 L 09/04/21 13:00 40 H 112/70 95 09/04/21 12:00 97.7 F 29 H 116/75 93 L 09/04/21 11:00 36 H 112/62 93 L 09/04/21 10:00 43 H 118/67 90 L 09/04/21 09:00 30 H 111/65 93 L 09/04/21 08:25 119/76 09/04/21 08:00 98.1 F 38 H 119/76 95 - Problem List & Annotations (1) Pneumonia due to COVID-19 virus SNOMED Code(s): 640108886404271349 Code(s): U07.1 - COVID-19; J12.82 - PNEUMONIA DUE TO CORONAVIRUS DISEASE 2019 Status: Acute Current Visit: Yes (2) Respiratory failure with hypoxia SNOMED Code(s): 80166727289012104 Code(s): J96.91 - RESPIRATORY FAILURE, UNSPECIFIED WITH HYPOXIA Status: Acute Current Visit: Yes - Problem List Review Problem List Initiated/Reviewed/Updated: Yes - My Orders Last 24 Hours: My Active Orders 09/05/21 05:11 CBC WITH AUTO DIFF [HEME] DAILY COMPREHENSIVE METABOLIC PN,CMP [CHEM] DAILY 09/06/21 05:11 CBC WITH AUTO DIFF [HEME] DAILY COMPREHENSIVE METABOLIC PN,CMP [CHEM] DAILY 09/07/21 05:11 CBC WITH AUTO DIFF [HEME] DAILY COMPREHENSIVE METABOLIC PN,CMP [CHEM] DAILY 09/08/21 05:11 CBC WITH AUTO DIFF [HEME] DAILY COMPREHENSIVE METABOLIC PN,CMP [CHEM] DAILY - Assessment Assessment:: COVID: Patient is currently on heated high flow 35 L, FiO2 60%. -Remdesivir therapy completed today. -Baricitinib 4 mg daily. Dexamethasone 6 mg daily. Lovenox 40 mg. Physical therapy following. -Duo nebs q4hr prn. Combivent q4hr. Cepacol lozenges q6hr prn. Tessalon Perles TID prn. Guaifenesin 100 mg q4hr prn. -Patient instructed to prone position. Incentive spirometry. -Aspirin 81 mg. Atorvastatin 40 mg bedtime. Bupropion 150 mg bid. Plavix 75 mg. Lisinopril 10 mg -Mirtazapine 30 mg bedtime. Venlafaxine 37.5 mg -Heart healthy diet. -Carvedilol 6.25 mg has been stopped temporarily due to bradycardia - Plan Plan:: I have seen and evaluated the patient and agree with the residents note unless specified in my note <Wes Dorsey - Last Filed: 09/08/21 13:12> - Patient Data Vitals - Most Recent: Last Vital Signs Temp 36.8 C 09/08/21 08:00 Pulse 70 09/08/21 08:00 Resp 16 09/08/21 08:00 BP 104/69 09/08/21 10:01 Pulse Ox 91 L 09/08/21 08:00 I&O - Last 24 Hours: Intake & Output 09/07/21 09/08/21 09/08/21 22:59 06:59 14:59 Intake Total 1500 1050 Output Total 0 Balance 1500 1050 Lab Results Last 24 Hours: Laboratory Results - last 24 hr 09/08/21 09/08/21 Range/Units 05:30 05:30 WBC 9.16 (4.0-11.0) K/uL RBC 4.74 (4.50-5.90) M/uL Hgb 11.8 L (13.0-17.0) g/dL Hct 36.8 L (38.0-50.0) % MCV 77.6 L (80.0-98.0) fL MCH 24.9 L (27.0-32.0) pg MCHC 32.1 (31.0-37.0) g/dL RDW Std Deviation 49.9 (28.0-62.0) fl RDW Coeff of Juve 18 H (11.0-15.0) % Plt Count 428 H (150-400) K/uL MPV 10.10 (7.40-12.00) fL Neut % (Auto) 72.6 (48.0-80.0) % Lymph % (Auto) 15.1 L (16.0-40.0) % [place] % (Auto) 10.6 (0.0-15.0) % Eos % (Auto) 1.7 (0.0-7.0) % Baso % (Auto) 0.0 (0.0-1.5) % Neut # (Auto) 6.7 H (1.4-5.7) K/uL Lymph # (Auto) 1.4 (0.6-2.4) K/uL [place] # (Auto) 1.0 H (0.0-0.8) K/uL Eos # (Auto) 0.2 (0.0-0.7) K/uL Baso # (Auto) 0.0 (0.0-0.1) K/uL Nucleated RBC % 0.0 /100WBC Nucleated RBCs # 0 K/uL Sodium 133 L (136-148) mmol/L Potassium 3.9 (3.5-5.1) mmol/L Chloride 101 (98-107) mmol/L Carbon Dioxide 24.1 (21.0-32.0) mmol/L BUN 21 H (7.0-18.0) mg/dL Creatinine 1.0 (0.8-1.3) mg/dL Est Cr Clr Drug Dosing 112.12 mL/min Estimated GFR (MDRD) > 60.0 ml/min Glucose 153 H (74-106) mg/dL Calcium 7.9 L (8.5-10.1) mg/dL Total Bilirubin 0.3 (0.2-1.0) mg/dL AST 55 H (15-37) IU/L ALT 209 H (14-63) IU/L Alkaline Phosphatase 151 H (46-116) U/L Total Protein 6.8 (6.4-8.2) g/dL Albumin 2.2 L (3.4-5.0) g/dL Globulin 4.6 H (2.6-4.0) g/dL Albumin/Globulin Ratio 0.5 L (0.9-1.6) Med Orders - Current: Current Medications Acetaminophen (Acetaminophen 325 Mg Tab) 650 mg PO Q4H PRN PRN Reason: Pain (Mild 1-3)/fever Albuterol/Ipratropium (Albuterol/Ipratropium 3.0-0.5 Mg/3 Ml Neb Soln) 3 ml NEB Q4HRRT PRN PRN Reason: Dyspnea Albuterol/Ipratropium (Albuterol/Ipratropium 4 Gm Inhalation Schneider) 0 gm INH Q4HRRT PRN PRN Reason: Shortness of Breath Last Admin: 09/07/21 20:57 Dose: 1 puff Documented by: Aspirin (Aspirin 81 Mg Tab.Ec) 81 mg PO [facility] Last Admin: 09/08/21 10:02 Dose: 81 mg Documented by: Atorvastatin Calcium (Atorvastatin 40 Mg Tab) 40 mg PO BEDTIME [facility] Last Admin: 09/07/21 21:04 Dose: 40 mg Documented by: Baricitinib (Baricitinib 2 Mg Tab) 4 mg PO [facility] Last Admin: 09/08/21 10:01 Dose: 4 mg Documented by: Benzocaine/Menthol (Benzocaine/Cetylpyridinium/Menthol Lozenge) 1 lozenge MUCMEM Q6H PRN PRN Reason: Sore Throat Last Admin: 09/01/21 21:47 Dose: 1 lozenge Documented by: Benzonatate (Benzonatate 100 Mg Cap) 100 mg PO TID PRN PRN Reason: Cough Last Admin: 09/03/21 16:56 Dose: 100 mg Documented by: Bupropion HCl (Bupropion 150 Mg Tab.Sr) 150 mg PO BID [facility] Last Admin: 09/08/21 10:00 Dose: 150 mg Documented by: Clopidogrel Bisulfate (Clopidogrel 75 Mg Tab) 75 mg PO [facility] Last Admin: 09/08/21 10:00 Dose: 75 mg Documented by: Dexamethasone (Dexamethasone 4 Mg Tab) 6 mg PO [facility]ILY [facility] Last Admin: 09/08/21 10:00 Dose: 6 mg Documented by: Enoxaparin Sodium (Enoxaparin 40 Mg/0.4 Ml Syringe) 40 mg SUBCUT Q24H [facility] Last Admin: 09/07/21 15:21 Dose: 40 mg Documented by: Guaifenesin (Guaifenesin 100 Mg/5 Ml Soln 5 Ml Ud Cup) 100 mg PO Q4H PRN PRN Reason: Cough Last Admin: 09/03/21 11:30 Dose: 100 mg Documented by: Lisinopril (Lisinopril 10 Mg Tab) 10 mg PO [facility] Last Admin: 09/08/21 10:01 Dose: 10 mg Documented by: Mirtazapine (Mirtazapine 15 Mg Tab) 30 mg PO [facility]TIME [facility] Last Admin: 09/07/21 21:04 Dose: 30 mg Documented by: Ondansetron HCl (Ondansetron 4 Mg/2 Ml Sdv) 4 mg IVPUSH Q4H PRN PRN Reason: nausea and vomiting Pantoprazole Sodium (Pantoprazole 40 Mg Tab.Cr) 40 mg PO [facility] Last Admin: 09/08/21 10:00 Dose: 40 mg Documented by: Sodium Chloride (Sodium Chloride 0.9% 10 Ml Syringe) 10 ml FLUSH ASDIRECTED PRN PRN Reason: Keep Vein Open Last Admin: 08/31/21 09:49 Dose: 10 ml Documented by: Sodium Chloride (Sodium Chloride 0.9% 2.5 Ml Syringe) 2.5 ml FLUSH ASDIRECTED PRN PRN Reason: Keep Vein Open Last Admin: 08/31/21 09:49 Dose: 2.5 ml Documented by: Venlafaxine HCl (Venlafaxine 37.5 Mg Cap.Er) 37.5 mg PO [facility] Last Admin: 09/08/21 10:01 Dose: 37.5 mg Documented by: Discontinued Medications Albuterol/Ipratropium (Albuterol/Ipratropium 3.0-0.5 Mg/3 Ml Neb Soln) 6 ml NEB ONETIME ONE Stop: 08/31/21 09:39 Last Admin: 08/31/21 09:49 Dose: 6 ml Documented by: Albuterol/Ipratropium (Albuterol/Ipratropium 4 Gm Inhalation Schneider) 0 gm INH Q4HRRT [facility] Last Admin: 09/07/21 14:25 Dose: Not Given Documented by: Albuterol/Ipratropium (Albuterol/Ipratropium 4 Gm Inhalation Schneider) Confirm Administered Dose 4 gm INH .STK-MED ONE Stop: 08/31/21 23:03 Last Admin: 08/31/21 23:21 Dose: Not Given Documented by: Carbamide Perox/Anhydrous Glycerin (Carbamide Peroxide 6.5% Otic Soln 15 Ml Bottle) 1 ml EARRT BID [facility] Stop: 09/06/21 12:00 Last Admin: 09/06/21 09:31 Dose: 1 ml Documented by: Carvedilol (Carvedilol 6.25 Mg Tab) 6.25 mg PO BID [facility] Last Admin: 09/02/21 09:04 Dose: 6.25 mg Documented by: Dexamethasone (Dexamethasone 10 Mg/Ml Sdv) 10 mg IVPUSH ONETIME ONE Stop: 08/31/21 09:34 Last Admin: 08/31/21 09:49 Dose: 10 mg Documented by: Remdesivir 200 mg/ Sodium (Chloride) 250 mls @ 250 mls/hr IV ONETIME ONE Stop: 08/31/21 09:40 Last Admin: 08/31/21 10:18 Dose: Not Given Documented by: Remdesivir 200 mg/ Sodium (Chloride) 250 mls @ 250 mls/hr IV ONETIME ONE Stop: 08/31/21 10:59 Last Admin: 08/31/21 10:16 Dose: 250 mls/hr Documented by: Sodium Chloride (Normal Saline) 1,000 mls @ 10 mls/hr IV STAT [facility] Stop: 09/04/21 14:06 Last Admin: 08/31/21 10:08 Dose: 10 mls/hr Documented by: Remdesivir 100 mg/ Sodium (Chloride) 100 mls @ 100 mls/hr IV Q24H [facility] Stop: 09/04/21 09:59 Last Admin: 09/04/21 08:24 Dose: 100 mls/hr Documented by: Iopamidol (Iopamidol 755 Mg/Ml 500 Ml Multipack Bottle) 100 ml IVPUSH ONETIME ONE Stop: 08/31/21 12:18 Last Admin: 08/31/21 12:18 Dose: 100 ml Documented by: Lorazepam (Lorazepam 2 Mg/Ml Sdv) 0.5 mg IVPUSH ONETIME ONE Stop: 08/31/21 09:55 Last Admin: 08/31/21 10:05 Dose: 0.5 mg Documented by: Ondansetron HCl (Ondansetron 4 Mg/2 Ml Sdv) Confirm Administered Dose 4 mg .ROUTE .STK-MED ONE Stop: 08/31/21 09:46 Last Admin: 08/31/21 09:48 Dose: Not Given Documented by: Ondansetron HCl (Ondansetron 4 Mg/2 Ml Sdv) 4 mg IVPUSH ONETIME ONE Stop: 08/31/21 09:50 Last Admin: 08/31/21 09:50 Dose: 4 mg Documented by: - Patient Data Lab Results Last 24 hrs: Laboratory Results - last 24 hr 09/08/21 09/08/21 Range/Units 05:30 05:30 WBC 9.16 (4.0-11.0) K/uL RBC 4.74 (4.50-5.90) M/uL Hgb 11.8 L (13.0-17.0) g/dL Hct 36.8 L (38.0-50.0) % MCV 77.6 L (80.0-98.0) fL MCH 24.9 L (27.0-32.0) pg MCHC 32.1 (31.0-37.0) g/dL RDW Std Deviation 49.9 (28.0-62.0) fl RDW Coeff of Juve 18 H (11.0-15.0) % Plt Count 428 H (150-400) K/uL MPV 10.10 (7.40-12.00) fL Neut % (Auto) 72.6 (48.0-80.0) % Lymph % (Auto) 15.1 L (16.0-40.0) % [place] % (Auto) 10.6 (0.0-15.0) % Eos % (Auto) 1.7 (0.0-7.0) % Baso % (Auto) 0.0 (0.0-1.5) % Neut # (Auto) 6.7 H (1.4-5.7) K/uL Lymph # (Auto) 1.4 (0.6-2.4) K/uL [place] # (Auto) 1.0 H (0.0-0.8) K/uL Eos # (Auto) 0.2 (0.0-0.7) K/uL Baso # (Auto) 0.0 (0.0-0.1) K/uL Nucleated RBC % 0.0 /100WBC Nucleated RBCs # 0 K/uL Sodium 133 L (136-148) mmol/L Potassium 3.9 (3.5-5.1) mmol/L Chloride 101 (98-107) mmol/L Carbon Dioxide 24.1 (21.0-32.0) mmol/L BUN 21 H (7.0-18.0) mg/dL Creatinine 1.0 (0.8-1.3) mg/dL Est Cr Clr Drug Dosing 112.12 mL/min Estimated GFR (MDRD) > 60.0 ml/min Glucose 153 H (74-106) mg/dL Calcium 7.9 L (8.5-10.1) mg/dL Total Bilirubin 0.3 (0.2-1.0) mg/dL AST 55 H (15-37) IU/L ALT 209 H (14-63) IU/L Alkaline Phosphatase 151 H (46-116) U/L Total Protein 6.8 (6.4-8.2) g/dL Albumin 2.2 L (3.4-5.0) g/dL Globulin 4.6 H (2.6-4.0) g/dL Albumin/Globulin Ratio 0.5 L (0.9-1.6) Result Diagrams: 09/08/21 05:30 09/08/21 05:30 Sepsis Event Note - Focused Exam Vital Signs: Vital Signs Temp Pulse Resp BP BP Pulse Ox 09/08/21 10:01 104/69 09/08/21 08:00 36.8 C 70 16 104/69 91 L 09/08/21 04:03 36.6 C 19 110/50 L 95 - Problem List & Annotations (1) Pneumonia due to COVID-19 virus SNOMED Code(s): 882197597516611965 Code(s): U07.1 - COVID-19; J12.82 - PNEUMONIA DUE TO CORONAVIRUS DISEASE 2018 Status: Acute Current Visit: Yes (2) Respiratory failure with hypoxia SNOMED Code(s): 29597078860983348 Code(s): J96.91 - RESPIRATORY FAILURE, UNSPECIFIED WITH HYPOXIA Status: Acute Current Visit: Yes (3) COVID-19 SNOMED Code(s): 866210857 Code(s): U07.1 - COVID-19 Status: Acute Current Visit: No (4) History of CVA (cerebrovascular accident) SNOMED Code(s): 058504739 Code(s): Z86.73 - PRSNL HX OF TIA (TIA), AND CEREB INFRC W/O RESID DEFICITS Status: Acute Current Visit: Yes (5) History of AL (myocardial infarction) SNOMED Code(s): 125488561 Code(s): I25.2 - OLD MYOCARDIAL INFARCTION Status: Acute Current Visit: Yes - My Orders Last 24 Hours: My Active Orders 09/07/21 14:30 Albuterol/Ipratropium [Combivent Respimat] 0 gm INH Q4HRRT PRN - Plan Plan:: I have seen and evaluated the patient and agree with the residents note unless specified in my note
[2021-09-04] MEDS: atorvaSTATin 40 MG Tab PO SCH (20:44)
[2021-09-04] MEDS: Mirtazapine 15 MG Tab PO SCH (20:44)
[2021-09-05] MEDS: Albuterol/Ipratropium 4 GM Inhalation Spray INH SCH ×6 (02:15→21:38)
[2021-09-05 06:43] LABS: BLOOD UREA NITROGEN,BUN 18 mg/dL (7.0-18.0); CARBON DIOXIDE,CO2 22.5 mmol/L (21.0-32.0); CHLORIDE,CL 101 mmol/L (98-107); GLUCOSE RANDOM 96 mg/dL (74-106); POTASSIUM,K 4.1 mmol/L (3.5-5.1); SODIUM,NA 136 mmol/L (136-148)
--- NOTE | 2021-09-05 06:57 | PCM.PN ---
- General Info Date of Service: 09/05/21 Admission Dx/Problem (Free Text): Admission Diagnosis/Problem Admission Diagnosis/Problem Viral pneumonia Subjective Update: 45-year-old male with Covid currently requiring ICU level care. Patient has completed remdesivir. Patient is on dexamethasone, and baricitinib. Patient remains on heated high flow, 40 L, FiO2 45 %. Patient states he feels better. Patient states his ear pain has improved. Patient has not had a bowel movement. Patient denies chest pain, palpitations, difficulty breathing, headaches, dizziness, loss of consciousness, fever or chills. - Review of Systems General: Denies: Fever, Chills HEENT: Denies: Headaches Pulmonary: Reports: Shortness of Breath, Cough. Denies: Pleuritic Chest Pain Cardiovascular: Reports: Dyspnea on Exertion. Denies: Chest Pain, Palpitations Gastrointestinal: Denies: Abdominal Pain, Constipation, Diarrhea, Nausea, Vomiting Genitourinary: Denies: Dysuria Musculoskeletal: Denies: Leg Pain Skin: Denies: Cyanosis Neurological: Denies: Confusion - Patient Data Vitals - Most Recent: Last Vital Signs Temp 97.7 F 09/05/21 04:00 Pulse 60 09/03/21 06:45 Resp 36 H 09/05/21 06:00 BP 105/59 L 09/05/21 06:00 Pulse Ox 88 L 09/05/21 06:00 Weight - Most Recent: 220 lb 9.6 oz I&O - Last 24 Hours: Intake & Output 09/04/21 09/04/21 09/05/21 14:59 22:59 06:59 Intake Total 350 996 4380 Output Total 800 1150 Balance 100 0 -50 Lab Results Last 24 Hours: Laboratory Results - last 24 hr 09/04/21 09/04/21 09/05/21 Range/Units 05:35 05:35 04:30 WBC 7.20 6.50 (4.0-11.0) K/uL RBC 4.86 4.87 (4.50-5.90) M/uL Hgb 12.2 L 12.1 L (13.0-17.0) g/dL Hct 37.2 L 37.4 L (38.0-50.0) % MCV 76.5 L 76.8 L (80.0-98.0) fL MCH 25.1 L 24.8 L (27.0-32.0) pg MCHC 32.8 32.4 (31.0-37.0) g/dL RDW Std Deviation 48.4 49.2 (28.0-62.0) fl RDW Coeff of Juve 17 H 17 H (11.0-15.0) % Plt Count 284 313 (150-400) K/uL MPV 10.20 10.00 (7.40-12.00) fL Neut % (Auto) 72.7 71.5 (48.0-80.0) % Lymph % (Auto) 16.3 17.1 (16.0-40.0) % [place] % (Auto) 10.6 10.9 (0.0-15.0) % Eos % (Auto) 0.3 0.5 (0.0-7.0) % Baso % (Auto) 0.1 0.0 (0.0-1.5) % Neut # (Auto) 5.2 4.7 (1.4-5.7) K/uL Lymph # (Auto) 1.2 1.1 (0.6-2.4) K/uL [place] # (Auto) 0.8 0.7 (0.0-0.8) K/uL Eos # (Auto) 0.0 0.0 (0.0-0.7) K/uL Baso # (Auto) 0.0 0.0 (0.0-0.1) K/uL Nucleated RBC % 0.0 0.0 /100WBC Nucleated RBCs # 0 0 K/uL Sodium 135 L (136-148) mmol/L Potassium 4.0 (3.5-5.1) mmol/L Chloride 101 (98-107) mmol/L Carbon Dioxide 21.1 (21.0-32.0) mmol/L BUN 24 H (7.0-18.0) mg/dL Creatinine 1.0 (0.8-1.3) mg/dL Est Cr Clr Drug Dosing 112.12 mL/min Estimated GFR (MDRD) > 60.0 ml/min Glucose 82 (74-106) mg/dL Calcium 7.6 L (8.5-10.1) mg/dL Total Bilirubin 0.5 (0.2-1.0) mg/dL AST 37 (15-37) IU/L ALT 145 H (14-63) IU/L Alkaline Phosphatase 156 H (46-116) U/L Total Protein 6.6 (6.4-8.2) g/dL Albumin 2.6 L (3.4-5.0) g/dL Globulin 4.0 (2.6-4.0) g/dL Albumin/Globulin Ratio 0.7 L (0.9-1.6) 09/05/21 Range/Units 04:30 WBC (4.0-11.0) K/uL RBC (4.50-5.90) M/uL Hgb (13.0-17.0) g/dL Hct (38.0-50.0) % MCV (80.0-98.0) fL MCH (27.0-32.0) pg MCHC (31.0-37.0) g/dL RDW Std Deviation (28.0-62.0) fl RDW Coeff of Juve (11.0-15.0) % Plt Count (150-400) K/uL MPV (7.40-12.00) fL Neut % (Auto) (48.0-80.0) % Lymph % (Auto) (16.0-40.0) % [place] % (Auto) (0.0-15.0) % Eos % (Auto) (0.0-7.0) % Baso % (Auto) (0.0-1.5) % Neut # (Auto) (1.4-5.7) K/uL Lymph # (Auto) (0.6-2.4) K/uL [place] # (Auto) (0.0-0.8) K/uL Eos # (Auto) (0.0-0.7) K/uL Baso # (Auto) (0.0-0.1) K/uL Nucleated RBC % /100WBC Nucleated RBCs # K/uL Sodium 136 (136-148) mmol/L Potassium 4.1 (3.5-5.1) mmol/L Chloride 101 (98-107) mmol/L Carbon Dioxide 22.5 (21.0-32.0) mmol/L BUN 18 (7.0-18.0) mg/dL Creatinine 0.9 (0.8-1.3) mg/dL Est Cr Clr Drug Dosing 124.57 mL/min Estimated GFR (MDRD) > 60.0 ml/min Glucose 96 (74-106) mg/dL Calcium 8.1 L (8.5-10.1) mg/dL Total Bilirubin 0.5 (0.2-1.0) mg/dL AST 31 (15-37) IU/L ALT 126 H (14-63) IU/L Alkaline Phosphatase 144 H (46-116) U/L Total Protein 6.4 (6.4-8.2) g/dL Albumin 2.4 L (3.4-5.0) g/dL Globulin 4.0 (2.6-4.0) g/dL Albumin/Globulin Ratio 0.6 L (0.9-1.6) Chris Results Last 24 Hours: Microbiology 08/31/21 09:59 Aerobic Blood Culture - Preliminary Blood - Venous - Lab Draw NO GROWTH AFTER 4 DAYS Anaerobic Blood Culture - Preliminary NO GROWTH AFTER 4 DAYS 08/31/21 09:37 Aerobic Blood Culture - Preliminary Blood - Venous NO GROWTH AFTER 4 DAYS Anaerobic Blood Culture - Preliminary NO GROWTH AFTER 4 DAYS Med Orders - Current: Current Medications Acetaminophen (Acetaminophen 325 Mg Tab) 650 mg PO Q4H PRN PRN Reason: Pain (Mild 1-3)/fever Albuterol/Ipratropium (Albuterol/Ipratropium 4 Gm Inhalation [place]) 0 gm INH Q4HRRT [facility] Last Admin: 09/05/21 06:11 Dose: 1 puff Documented by: Albuterol/Ipratropium (Albuterol/Ipratropium 3.0-0.5 Mg/3 Ml Neb Soln) 3 ml NEB Q4HRRT PRN PRN Reason: Dyspnea Aspirin (Aspirin 81 Mg Tab.Ec) 81 mg PO DAILY [facility] Last Admin: 09/04/21 08:24 Dose: 81 mg Documented by: Atorvastatin Calcium (Atorvastatin 40 Mg Tab) 40 mg PO BEDTIME [facility] Last Admin: 09/04/21 20:44 Dose: 40 mg Documented by: Baricitinib (Baricitinib 2 Mg Tab) 4 mg PO DAILY [facility] Last Admin: 09/04/21 08:24 Dose: 4 mg Documented by: Benzocaine/Menthol (Benzocaine/Cetylpyridinium/Menthol Lozenge) 1 lozenge MUCMEM Q6H PRN PRN Reason: Sore Throat Last Admin: 09/01/21 21:47 Dose: 1 lozenge Documented by: Benzonatate (Benzonatate 100 Mg Cap) 100 mg PO TID PRN PRN Reason: Cough Last Admin: 09/03/21 16:56 Dose: 100 mg Documented by: Bupropion HCl (Bupropion 150 Mg Tab.Sr) 150 mg PO BID [facility] Last Admin: 09/04/21 20:44 Dose: 150 mg Documented by: Carbamide Perox/Anhydrous Glycerin (Carbamide Peroxide 6.5% Otic Soln 15 Ml Bottle) 1 ml EARRT BID [facility] Last Admin: 09/04/21 20:44 Dose: 1 ml Documented by: Clopidogrel Bisulfate (Clopidogrel 75 Mg Tab) 75 mg PO DAILY [facility] Last Admin: 09/04/21 08:25 Dose: 75 mg Documented by: Dexamethasone (Dexamethasone 4 Mg Tab) 6 mg PO DAILY [facility] Last Admin: 09/04/21 08:24 Dose: 6 mg Documented by: Enoxaparin Sodium (Enoxaparin 40 Mg/0.4 Ml Syringe) 40 mg SUBCUT Q24H [facility] Last Admin: 09/04/21 17:00 Dose: 40 mg Documented by: Guaifenesin (Guaifenesin 100 Mg/5 Ml Soln 5 Ml Ud Cup) 100 mg PO Q4H PRN PRN Reason: Cough Last Admin: 09/03/21 11:30 Dose: 100 mg Documented by: Lisinopril (Lisinopril 10 Mg Tab) 10 mg PO DAILY [facility] Last Admin: 09/04/21 08:25 Dose: 10 mg Documented by: Mirtazapine (Mirtazapine 15 Mg Tab) 30 mg PO BEDTIME [facility] Last Admin: 09/04/21 20:44 Dose: 30 mg Documented by: Ondansetron HCl (Ondansetron 4 Mg/2 Ml Sdv) 4 mg IVPUSH Q4H PRN PRN Reason: nausea and vomiting Pantoprazole Sodium (Pantoprazole 40 Mg Tab.Cr) 40 mg PO DAILY [facility] Last Admin: 09/04/21 08:25 Dose: 40 mg Documented by: Sodium Chloride (Sodium Chloride 0.9% 10 Ml Syringe) 10 ml FLUSH ASDIRECTED PRN PRN Reason: Keep Vein Open Last Admin: 08/31/21 09:49 Dose: 10 ml Documented by: Sodium Chloride (Sodium Chloride 0.9% 2.5 Ml Syringe) 2.5 ml FLUSH ASDIRECTED PRN PRN Reason: Keep Vein Open Last Admin: 08/31/21 09:49 Dose: 2.5 ml Documented by: Venlafaxine HCl (Venlafaxine 37.5 Mg Cap.Er) 37.5 mg PO DAILY [facility] Last Admin: 09/04/21 08:25 Dose: 37.5 mg Documented by: Discontinued Medications Albuterol/Ipratropium (Albuterol/Ipratropium 3.0-0.5 Mg/3 Ml Neb Soln) 6 ml NEB ONETIME ONE Stop: 08/31/21 09:39 Last Admin: 08/31/21 09:49 Dose: 6 ml Documented by: Albuterol/Ipratropium (Albuterol/Ipratropium 4 Gm Inhalation [place]) Confirm Administered Dose 4 gm INH .STK-MED ONE Stop: 08/31/21 23:03 Last Admin: 08/31/21 23:21 Dose: Not Given Documented by: Carvedilol (Carvedilol 6.25 Mg Tab) 6.25 mg PO BID [facility] Last Admin: 09/02/21 09:04 Dose: 6.25 mg Documented by: Dexamethasone (Dexamethasone 10 Mg/Ml Sdv) 10 mg IVPUSH ONETIME ONE Stop: 08/31/21 09:34 Last Admin: 08/31/21 09:49 Dose: 10 mg Documented by: Remdesivir 200 mg/ Sodium (Chloride) 250 mls @ 250 mls/hr IV ONETIME ONE Stop: 08/31/21 09:40 Last Admin: 08/31/21 10:18 Dose: Not Given Documented by: Remdesivir 200 mg/ Sodium (Chloride) 250 mls @ 250 mls/hr IV ONETIME ONE Stop: 08/31/21 10:59 Last Admin: 08/31/21 10:16 Dose: 250 mls/hr Documented by: Sodium Chloride (Normal Saline) 1,000 mls @ 10 mls/hr IV STAT STA Stop: 09/04/21 14:06 Last Admin: 08/31/21 10:08 Dose: 10 mls/hr Documented by: Remdesivir 100 mg/ Sodium (Chloride) 100 mls @ 100 mls/hr IV Q24H [facility] Stop: 09/04/21 09:59 Last Admin: 09/04/21 08:24 Dose: 100 mls/hr Documented by: Iopamidol (Iopamidol 755 Mg/Ml 500 Ml Multipack Bottle) 100 ml IVPUSH ONETIME ONE Stop: 08/31/21 12:18 Last Admin: 08/31/21 12:18 Dose: 100 ml Documented by: Lorazepam (Lorazepam 2 Mg/Ml Sdv) 0.5 mg IVPUSH ONETIME ONE Stop: 08/31/21 09:55 Last Admin: 08/31/21 10:05 Dose: 0.5 mg Documented by: Ondansetron HCl (Ondansetron 4 Mg/2 Ml Sdv) Confirm Administered Dose 4 mg .ROUTE .STK-MED ONE Stop: 08/31/21 09:46 Last Admin: 08/31/21 09:48 Dose: Not Given Documented by: Ondansetron HCl (Ondansetron 4 Mg/2 Ml Sdv) 4 mg IVPUSH ONETIME ONE Stop: 08/31/21 09:50 Last Admin: 08/31/21 09:50 Dose: 4 mg Documented by: - Exam Quality Assessment: Supplemental Oxygen General: Alert, Oriented, Cooperative, No Acute Distress HEENT: Pupils Equal, Pupils Reactive Neck: Supple, Trachea Midline Lungs: Decreased Breath Sounds, Rales Cardiovascular: Regular Rate, Regular Rhythm, No Murmurs GI/Abdominal Exam: Normal Bowel Sounds, Soft, Non-Tender Back Exam: Normal Inspection Extremities: Normal Inspection, No Pedal Edema. No: Michael's Sign Peripheral Pulses: 2+: Dorsalis Pedis (L), Dorsalis Pedis (R) Skin: Warm, Dry, Intact Neurological: No New Focal Deficit - Patient Data Lab Results Last 24 hrs: Laboratory Results - last 24 hr 09/04/21 09/04/21 09/05/21 Range/Units 05:35 05:35 04:30 WBC 7.20 6.50 (4.0-11.0) K/uL RBC 4.86 4.87 (4.50-5.90) M/uL Hgb 12.2 L 12.1 L (13.0-17.0) g/dL Hct 37.2 L 37.4 L (38.0-50.0) % MCV 76.5 L 76.8 L (80.0-98.0) fL MCH 25.1 L 24.8 L (27.0-32.0) pg MCHC 32.8 32.4 (31.0-37.0) g/dL RDW Std Deviation 48.4 49.2 (28.0-62.0) fl RDW Coeff of Juve 17 H 17 H (11.0-15.0) % Plt Count 284 313 (150-400) K/uL MPV 10.20 10.00 (7.40-12.00) fL Neut % (Auto) 72.7 71.5 (48.0-80.0) % Lymph % (Auto) 16.3 17.1 (16.0-40.0) % [place] % (Auto) 10.6 10.9 (0.0-15.0) % Eos % (Auto) 0.3 0.5 (0.0-7.0) % Baso % (Auto) 0.1 0.0 (0.0-1.5) % Neut # (Auto) 5.2 4.7 (1.4-5.7) K/uL Lymph # (Auto) 1.2 1.1 (0.6-2.4) K/uL [place] # (Auto) 0.8 0.7 (0.0-0.8) K/uL Eos # (Auto) 0.0 0.0 (0.0-0.7) K/uL Baso # (Auto) 0.0 0.0 (0.0-0.1) K/uL Nucleated RBC % 0.0 0.0 /100WBC Nucleated RBCs # 0 0 K/uL Sodium 135 L (136-148) mmol/L Potassium 4.0 (3.5-5.1) mmol/L Chloride 101 (98-107) mmol/L Carbon Dioxide 21.1 (21.0-32.0) mmol/L BUN 24 H (7.0-18.0) mg/dL Creatinine 1.0 (0.8-1.3) mg/dL Est Cr Clr Drug Dosing 112.12 mL/min Estimated GFR (MDRD) > 60.0 ml/min Glucose 82 (74-106) mg/dL Calcium 7.6 L (8.5-10.1) mg/dL Total Bilirubin 0.5 (0.2-1.0) mg/dL AST 37 (15-37) IU/L ALT 145 H (14-63) IU/L Alkaline Phosphatase 156 H (46-116) U/L Total Protein 6.6 (6.4-8.2) g/dL Albumin 2.6 L (3.4-5.0) g/dL Globulin 4.0 (2.6-4.0) g/dL Albumin/Globulin Ratio 0.7 L (0.9-1.6) 09/05/21 Range/Units 04:30 WBC (4.0-11.0) K/uL RBC (4.50-5.90) M/uL Hgb (13.0-17.0) g/dL Hct (38.0-50.0) % MCV (80.0-98.0) fL MCH (27.0-32.0) pg MCHC (31.0-37.0) g/dL RDW Std Deviation (28.0-62.0) fl RDW Coeff of Juve (11.0-15.0) % Plt Count (150-400) K/uL MPV (7.40-12.00) fL Neut % (Auto) (48.0-80.0) % Lymph % (Auto) (16.0-40.0) % [place] % (Auto) (0.0-15.0) % Eos % (Auto) (0.0-7.0) % Baso % (Auto) (0.0-1.5) % Neut # (Auto) (1.4-5.7) K/uL Lymph # (Auto) (0.6-2.4) K/uL [place] # (Auto) (0.0-0.8) K/uL Eos # (Auto) (0.0-0.7) K/uL Baso # (Auto) (0.0-0.1) K/uL Nucleated RBC % /100WBC Nucleated RBCs # K/uL Sodium 136 (136-148) mmol/L Potassium 4.1 (3.5-5.1) mmol/L Chloride 101 (98-107) mmol/L Carbon Dioxide 22.5 (21.0-32.0) mmol/L BUN 18 (7.0-18.0) mg/dL Creatinine 0.9 (0.8-1.3) mg/dL Est Cr Clr Drug Dosing 124.57 mL/min Estimated GFR (MDRD) > 60.0 ml/min Glucose 96 (74-106) mg/dL Calcium 8.1 L (8.5-10.1) mg/dL Total Bilirubin 0.5 (0.2-1.0) mg/dL AST 31 (15-37) IU/L ALT 126 H (14-63) IU/L Alkaline Phosphatase 144 H (46-116) U/L Total Protein 6.4 (6.4-8.2) g/dL Albumin 2.4 L (3.4-5.0) g/dL Globulin 4.0 (2.6-4.0) g/dL Albumin/Globulin Ratio 0.6 L (0.9-1.6) Result Diagrams: 09/05/21 04:30 09/05/21 04:30 Chris Results Last 24 hrs: Microbiology 08/31/21 09:59 Aerobic Blood Culture - Preliminary Blood - Venous - Lab Draw NO GROWTH AFTER 4 DAYS Anaerobic Blood Culture - Preliminary NO GROWTH AFTER 4 DAYS 08/31/21 09:37 Aerobic Blood Culture - Preliminary Blood - Venous NO GROWTH AFTER 4 DAYS Anaerobic Blood Culture - Preliminary NO GROWTH AFTER 4 DAYS Sepsis Event Note - Evaluation Sepsis Screening Result: No Definite Risk - Focused Exam Vital Signs: Vital Signs Temp Resp BP Pulse Ox 09/05/21 06:00 36 H 105/59 L 88 L 09/05/21 05:00 39 H 106/56 L 90 L 09/05/21 04:00 97.7 F 26 H 114/64 94 L 09/05/21 03:00 32 H 109/69 91 L 09/05/21 02:00 33 H 106/74 92 L 09/05/21 01:00 25 H 110/61 91 L 09/05/21 00:00 97.3 F 36 H 107/63 91 L 09/04/21 23:00 35 H 112/65 94 L 09/04/21 22:00 33 H 117/68 93 L 09/04/21 21:00 27 H 102/69 91 L 09/04/21 20:00 97.7 F 36 H 105/63 91 L 09/04/21 19:00 21 H 113/69 90 L - Problem List & Annotations (1) Pneumonia due to COVID-19 virus SNOMED Code(s): 016036469606538276 Code(s): U07.1 - COVID-19; J12.82 - PNEUMONIA DUE TO CORONAVIRUS DISEASE 2018 Status: Acute Current Visit: Yes (2) Respiratory failure with hypoxia SNOMED Code(s): 92818495285391581 Code(s): J96.91 - RESPIRATORY FAILURE, UNSPECIFIED WITH HYPOXIA Status: Acute Current Visit: Yes - Problem List Review Problem List Initiated/Reviewed/Updated: Yes - My Orders Last 24 Hours: My Active Orders 09/06/21 05:11 CBC WITH AUTO DIFF [HEME] DAILY COMPREHENSIVE METABOLIC PN,CMP [CHEM] DAILY 09/07/21 05:11 CBC WITH AUTO DIFF [HEME] DAILY COMPREHENSIVE METABOLIC PN,CMP [CHEM] DAILY 09/08/21 05:11 CBC WITH AUTO DIFF [HEME] DAILY COMPREHENSIVE METABOLIC PN,CMP [CHEM] DAILY - Assessment Assessment:: COVID: Patient is currently on heated high flow 35 L, FiO2 60%. -Remdesivir therapy completed today. -Baricitinib 4 mg daily. Dexamethasone 6 mg daily. Lovenox 40 mg. Physical therapy following. -Duo nebs q4hr prn. Combivent q4hr. Cepacol lozenges q6hr prn. Tessalon Perles TID prn. Guaifenesin 100 mg q4hr prn. -Patient instructed to prone position. Incentive spirometry. -Aspirin 81 mg. Atorvastatin 40 mg bedtime. Bupropion 150 mg bid. Plavix 75 mg. Lisinopril 10 mg -Mirtazapine 30 mg bedtime. Venlafaxine 37.5 mg -Heart healthy diet. -Carvedilol 6.25 mg has been stopped temporarily due to bradycardia - Plan Plan:: COVID: Patient is currently on heated high flow 40 L, FiO2 45%. Oxygen requirements continue to fluctuate. -Remdesivir therapy. -Baricitinib 4 mg daily. Dexamethasone 6 mg daily. Lovenox 40 mg. Physical therapy following. -Duo nebs q4hr prn. Combivent q4hr. Cepacol lozenges q6hr prn. Tessalon [place] TID prn. Guaifenesin 100 mg q4hr prn. -Patient educated again today regarding importance of prone position. Incentive spirometry. -Aspirin 81 mg. Atorvastatin 40 mg bedtime. Bupropion 150 mg bid. Plavix 75 mg. Lisinopril 10 mg -Mirtazapine 30 mg bedtime. Venlafaxine 37.5 mg -Heart healthy diet. -Carvedilol 6.25 mg has been stopped temporarily due to bradycardia
[2021-09-05] MEDS: Clopidogrel 75 MG Tab PO SCH (09:29)
[2021-09-05] MEDS: Pantoprazole 40 MG Tab.CR PO SCH (09:29)
[2021-09-05] MEDS: Lisinopril 10 MG Tab PO SCH (09:29)
[2021-09-05] MEDS: Aspirin 81 MG Tab.EC PO SCH (09:29)
[2021-09-05] MEDS: Dexamethasone 4 MG Tab PO SCH (09:30)
[2021-09-05] MEDS: buPROPion 150 MG Tab.SR PO SCH ×2 (09:30→20:47)
[2021-09-05] MEDS: Venlafaxine 37.5 MG Cap.ER PO SCH (09:30)
[2021-09-05] MEDS: Carbamide Peroxide 6.5% Otic Soln 15 ML Bottle EARRT SCH ×2 (09:41→20:25)
[2021-09-05] MEDS: Enoxaparin 40 MG/0.4 ML Syringe SUBCUT SCH (16:33)
[2021-09-05] MEDS: Mirtazapine 15 MG Tab PO SCH (20:26)
[2021-09-05] MEDS: atorvaSTATin 40 MG Tab PO SCH (20:26)
[2021-09-06] MEDS: Albuterol/Ipratropium 4 GM Inhalation Spray INH SCH ×6 (02:05→21:43)
--- NOTE | 2021-09-06 07:51 | PCM.PN ---
- General Info Date of Service: 09/06/21 - Review of Systems Systems Review Comment:: feeling a little better, still reports shortness of breath - Patient Data Vitals - Most Recent: Last Vital Signs Temp 36.3 C 09/06/21 04:00 Pulse 60 09/03/21 06:45 Resp 24 H 09/06/21 06:00 BP 101/55 L 09/06/21 06:00 Pulse Ox 95 09/06/21 06:00 Weight - Most Recent: 100.062 kg I&O - Last 24 Hours: Intake & Output 09/05/21 09/06/21 09/06/21 22:59 06:59 14:59 Intake Total 500 700 Output Total 890 850 Balance -390 -150 Lab Results Last 24 Hours: Laboratory Results - last 24 hr 09/06/21 Range/Units 06:00 WBC 6.94 (4.0-11.0) K/uL RBC 4.72 (4.50-5.90) M/uL Hgb 12.0 L (13.0-17.0) g/dL Hct 36.0 L (38.0-50.0) % MCV 76.3 L (80.0-98.0) fL MCH 25.4 L (27.0-32.0) pg MCHC 33.3 (31.0-37.0) g/dL RDW Std Deviation 48.8 (28.0-62.0) fl RDW Coeff of Juve 17 H (11.0-15.0) % Plt Count 384 (150-400) K/uL MPV 10.10 (7.40-12.00) fL Neut % (Auto) 76.1 (48.0-80.0) % Lymph % (Auto) 14.7 L (16.0-40.0) % [place] % (Auto) 8.2 (0.0-15.0) % Eos % (Auto) 1.0 (0.0-7.0) % Baso % (Auto) 0.0 (0.0-1.5) % Neut # (Auto) 5.3 (1.4-5.7) K/uL Lymph # (Auto) 1.0 (0.6-2.4) K/uL [place] # (Auto) 0.6 (0.0-0.8) K/uL Eos # (Auto) 0.1 (0.0-0.7) K/uL Baso # (Auto) 0.0 (0.0-0.1) K/uL Nucleated RBC % 0.0 /100WBC Nucleated RBCs # 0 K/uL Chris Results Last 24 Hours: Microbiology 08/31/21 09:59 Aerobic Blood Culture - Final Blood - Venous - Lab Draw NO GROWTH AFTER 5 DAYS Anaerobic Blood Culture - Final NO GROWTH AFTER 5 DAYS 08/31/21 09:37 Aerobic Blood Culture - Final Blood - Venous NO GROWTH AFTER 5 DAYS Anaerobic Blood Culture - Final NO GROWTH AFTER 5 DAYS Med Orders - Current: Current Medications Acetaminophen (Acetaminophen 325 Mg Tab) 650 mg PO Q4H PRN PRN Reason: Pain (Mild 1-3)/fever Albuterol/Ipratropium (Albuterol/Ipratropium 4 Gm Inhalation [place]) 0 gm INH Q4HRRT [facility] Last Admin: 09/06/21 06:31 Dose: 1 puff Documented by: Albuterol/Ipratropium (Albuterol/Ipratropium 3.0-0.5 Mg/3 Ml Neb Soln) 3 ml NEB Q4HRRT PRN PRN Reason: Dyspnea Aspirin (Aspirin 81 Mg Tab.Ec) 81 mg PO DAILY [facility] Last Admin: 09/05/21 09:29 Dose: 81 mg Documented by: Atorvastatin Calcium (Atorvastatin 40 Mg Tab) 40 mg PO BEDTIME [facility] Last Admin: 09/05/21 20:26 Dose: 40 mg Documented by: Baricitinib (Baricitinib 2 Mg Tab) 4 mg PO DAILY [facility] Last Admin: 09/05/21 09:28 Dose: 4 mg Documented by: Benzocaine/Menthol (Benzocaine/Cetylpyridinium/Menthol Lozenge) 1 lozenge MUCM EM Q6H PRN PRN Reason: Sore Throat Last Admin: 09/01/21 21:47 Dose: 1 lozenge Documented by: Benzonatate (Benzonatate 100 Mg Cap) 100 mg PO TID PRN PRN Reason: Cough Last Admin: 09/03/21 16:56 Dose: 100 mg Documented by: Bupropion HCl (Bupropion 150 Mg Tab.Sr) 150 mg PO BID [facility] Last Admin: 09/05/21 20:47 Dose: 150 mg Documented by: Carbamide Perox/Anhydrous Glycerin (Carbamide Peroxide 6.5% Otic Soln 15 Ml Bottle) 1 ml EARRT BID [facility] Stop: 09/06/21 12:00 Last Admin: 09/05/21 20:25 Dose: 1 ml Documented by: Clopidogrel Bisulfate (Clopidogrel 75 Mg Tab) 75 mg PO DAILY [facility] Last Admin: 09/05/21 09:29 Dose: 75 mg Documented by: Dexamethasone (Dexamethasone 4 Mg Tab) 6 mg PO DAILY [facility] Last Admin: 09/05/21 09:30 Dose: 6 mg Documented by: Enoxaparin Sodium (Enoxaparin 40 Mg/0.4 Ml Syringe) 40 mg SUBCUT Q24H [facility] Last Admin: 09/05/21 16:33 Dose: 40 mg Documented by: Guaifenesin (Guaifenesin 100 Mg/5 Ml Soln 5 Ml Ud Cup) 100 mg PO Q4H PRN PRN Reason: Cough Last Admin: 09/03/21 11:30 Dose: 100 mg Documented by: Lisinopril (Lisinopril 10 Mg Tab) 10 mg PO DAILY [facility] Last Admin: 09/05/21 09:29 Dose: 10 mg Documented by: Mirtazapine (Mirtazapine 15 Mg Tab) 30 mg PO BEDTIME [facility] Last Admin: 09/05/21 20:26 Dose: 30 mg Documented by: Ondansetron HCl (Ondansetron 4 Mg/2 Ml Sdv) 4 mg IVPUSH Q4H PRN PRN Reason: nausea and vomiting Pantoprazole Sodium (Pantoprazole 40 Mg Tab.Cr) 40 mg PO DAILY [facility] Last Admin: 09/05/21 09:29 Dose: 40 mg Documented by: Sodium Chloride (Sodium Chloride 0.9% 10 Ml Syringe) 10 ml FLUSH ASDIRECTED PRN PRN Reason: Keep Vein Open Last Admin: 08/31/21 09:49 Dose: 10 ml Documented by: Sodium Chloride (Sodium Chloride 0.9% 2.5 Ml Syringe) 2.5 ml FLUSH ASDIRECTED PRN PRN Reason: Keep Vein Open Last Admin: 08/31/21 09:49 Dose: 2.5 ml Documented by: Venlafaxine HCl (Venlafaxine 37.5 Mg Cap.Er) 37.5 mg PO DAILY [facility] Last Admin: 09/05/21 09:30 Dose: 37.5 mg Documented by: Discontinued Medications Albuterol/Ipratropium (Albuterol/Ipratropium 3.0-0.5 Mg/3 Ml Neb Soln) 6 ml NEB ONETIME ONE Stop: 08/31/21 09:39 Last Admin: 08/31/21 09:49 Dose: 6 ml Documented by: Albuterol/Ipratropium (Albuterol/Ipratropium 4 Gm Inhalation [place]) Confirm Administered Dose 4 gm INH .STK-MED ONE Stop: 08/31/21 23:03 Last Admin: 08/31/21 23:21 Dose: Not Given Documented by: Carvedilol (Carvedilol 6.25 Mg Tab) 6.25 mg PO BID [facility] Last Admin: 09/02/21 09:04 Dose: 6.25 mg Documented by: Dexamethasone (Dexamethasone 10 Mg/Ml Sdv) 10 mg IVPUSH ONETIME ONE Stop: 08/31/21 09:34 Last Admin: 08/31/21 09:49 Dose: 10 mg Documented by: Remdesivir 200 mg/ Sodium (Chloride) 250 mls @ 250 mls/hr IV ONETIME ONE Stop: 08/31/21 09:40 Last Admin: 08/31/21 10:18 Dose: Not Given Documented by: Remdesivir 200 mg/ Sodium (Chloride) 250 mls @ 250 mls/hr IV ONETIME ONE Stop: 08/31/21 10:59 Last Admin: 08/31/21 10:16 Dose: 250 mls/hr Documented by: Sodium Chloride (Normal Saline) 1,000 mls @ 10 mls/hr IV STAT STA Stop: 09/04/21 14:06 Last Admin: 08/31/21 10:08 Dose: 10 mls/hr Documented by: Remdesivir 100 mg/ Sodium (Chloride) 100 mls @ 100 mls/hr IV Q24H [facility] Stop: 09/04/21 09:59 Last Admin: 09/04/21 08:24 Dose: 100 mls/hr Documented by: Iopamidol (Iopamidol 755 Mg/Ml 500 Ml Multipack Bottle) 100 ml IVPUSH ONETIME ONE Stop: 08/31/21 12:18 Last Admin: 08/31/21 12:18 Dose: 100 ml Documented by: Lorazepam (Lorazepam 2 Mg/Ml Sdv) 0.5 mg IVPUSH ONETIME ONE Stop: 08/31/21 09:55 Last Admin: 08/31/21 10:05 Dose: 0.5 mg Documented by: Ondansetron HCl (Ondansetron 4 Mg/2 Ml Sdv) Confirm Administered Dose 4 mg .ROUTE .STK-MED ONE Stop: 08/31/21 09:46 Last Admin: 08/31/21 09:48 Dose: Not Given Documented by: Ondansetron HCl (Ondansetron 4 Mg/2 Ml Sdv) 4 mg IVPUSH ONETIME ONE Stop: 08/31/21 09:50 Last Admin: 08/31/21 09:50 Dose: 4 mg Documented by: - Exam General: Alert, Oriented Lungs: Normal Respiratory Effort, Rhonchi Cardiovascular: Regular Rate, Regular Rhythm GI/Abdominal Exam: Normal Bowel Sounds, Soft, Non-Tender Skin: Warm, Dry, Intact Neurological: No New Focal Deficit - Patient Data Lab Results Last 24 hrs: Laboratory Results - last 24 hr 09/06/21 Range/Units 06:00 WBC 6.94 (4.0-11.0) K/uL RBC 4.72 (4.50-5.90) M/uL Hgb 12.0 L (13.0-17.0) g/dL Hct 36.0 L (38.0-50.0) % MCV 76.3 L (80.0-98.0) fL MCH 25.4 L (27.0-32.0) pg MCHC 33.3 (31.0-37.0) g/dL RDW Std Deviation 48.8 (28.0-62.0) fl RDW Coeff of Juve 17 H (11.0-15.0) % Plt Count 384 (150-400) K/uL MPV 10.10 (7.40-12.00) fL Neut % (Auto) 76.1 (48.0-80.0) % Lymph % (Auto) 14.7 L (16.0-40.0) % [place] % (Auto) 8.2 (0.0-15.0) % Eos % (Auto) 1.0 (0.0-7.0) % Baso % (Auto) 0.0 (0.0-1.5) % Neut # (Auto) 5.3 (1.4-5.7) K/uL Lymph # (Auto) 1.0 (0.6-2.4) K/uL [place] # (Auto) 0.6 (0.0-0.8) K/uL Eos # (Auto) 0.1 (0.0-0.7) K/uL Baso # (Auto) 0.0 (0.0-0.1) K/uL Nucleated RBC % 0.0 /100WBC Nucleated RBCs # 0 K/uL Result Diagrams: 09/06/21 06:00 09/05/21 04:30 Chris Results Last 24 hrs: Microbiology 08/31/21 09:59 Aerobic Blood Culture - Final Blood - Venous - Lab Draw NO GROWTH AFTER 5 DAYS Anaerobic Blood Culture - Final NO GROWTH AFTER 5 DAYS 08/31/21 09:37 Aerobic Blood Culture - Final Blood - Venous NO GROWTH AFTER 5 DAYS Anaerobic Blood Culture - Final NO GROWTH AFTER 5 DAYS Sepsis Event Note - Evaluation Sepsis Screening Result: No Definite Risk - Focused Exam Vital Signs: Vital Signs Temp Resp BP Pulse Ox 09/06/21 06:00 24 H 101/55 L 95 09/06/21 05:00 29 H 109/63 92 L 09/06/21 04:00 36.3 C 24 H 109/63 92 L 09/06/21 03:00 26 H 104/58 L 91 L 09/06/21 02:00 26 H 107/59 L 92 L 09/06/21 01:00 27 H 110/72 92 L 09/06/21 00:00 36.5 C 24 H 110/74 92 L 09/05/21 23:00 21 H 106/70 93 L 09/05/21 22:00 31 H 111/59 L 92 L 09/05/21 21:00 37 H 104/61 92 L 09/05/21 20:00 36.2 C 33 H 99/61 93 L - Problem List & Annotations (1) Respiratory failure with hypoxia SNOMED Code(s): 93240066657457302 Code(s): J96.91 - RESPIRATORY FAILURE, UNSPECIFIED WITH HYPOXIA Status: Acute Current Visit: Yes (2) Pneumonia due to COVID-19 virus SNOMED Code(s): 591199928687817193 Code(s): U07.1 - COVID-19; J12.82 - PNEUMONIA DUE TO CORONAVIRUS DISEASE 2019 Status: Acute Current Visit: Yes - Problem List Review Problem List Initiated/Reviewed/Updated: Yes - Assessment Assessment:: 45 yo male admitted for acute hypoxic respiratory failure from COVID: Hypoxia Patient is currently on heated high flow 40 L, FiO2 45%. COVID; continue baricitinib, dexamethason, finished remdesivir Lovenox for DVT prophylaxis -Aspirin 81 mg. Atorvastatin 40 mg bedtime. Bupropion 150 mg bid. Plavix 75 mg. Lisinopril 10 mg -Mirtazapine 30 mg bedtime. Venlafaxine 37.5 mg -Heart healthy diet. -Carvedilol 6.25 mg has been stopped temporarily due to bradycardia
[2021-09-06 08:02] LABS: BLOOD UREA NITROGEN,BUN 20 mg/dL (7.0-18.0); CARBON DIOXIDE,CO2 21.2 mmol/L (21.0-32.0); CHLORIDE,CL 100 mmol/L (98-107); GLUCOSE RANDOM 148 mg/dL (74-106); POTASSIUM,K 4.1 mmol/L (3.5-5.1); SODIUM,NA 133 mmol/L (136-148)
--- NOTE | 2021-09-06 09:00 | CR ---
INDICATION: Follow-up pneumonia. TECHNIQUE: One view. COMPARISON: 31 August 2021. IMPRESSION: New or significantly worsened multifocal hazy indistinct airspace opacities at the periphery of the right mid lung and in the perihilar left lung and left lateral base. Findings consistent multifocal pneumonia. Pulmonary vascularity looks normal. Elevation right hemidiaphragm unchanged. Heart size looks unremarkable. Dictated by Bro Grewal MD @ 09/06/2021 8:57:59 AM (Electronically Signed)
[2021-09-06] MEDS: Dexamethasone 4 MG Tab PO SCH (09:29)
[2021-09-06] MEDS: Pantoprazole 40 MG Tab.CR PO SCH (09:30)
[2021-09-06] MEDS: Aspirin 81 MG Tab.EC PO SCH (09:30)
[2021-09-06] MEDS: Venlafaxine 37.5 MG Cap.ER PO SCH (09:30)
[2021-09-06] MEDS: buPROPion 150 MG Tab.SR PO SCH ×2 (09:30→20:14)
[2021-09-06] MEDS: Lisinopril 10 MG Tab PO SCH (09:30)
[2021-09-06] MEDS: Clopidogrel 75 MG Tab PO SCH (09:30)
[2021-09-06] MEDS: Carbamide Peroxide 6.5% Otic Soln 15 ML Bottle EARRT SCH (09:31)
[2021-09-06] MEDS: Enoxaparin 40 MG/0.4 ML Syringe SUBCUT SCH (16:49)
[2021-09-06] MEDS: Mirtazapine 15 MG Tab PO SCH (20:13)
[2021-09-06] MEDS: atorvaSTATin 40 MG Tab PO SCH (20:14)
[2021-09-07] MEDS: Albuterol/Ipratropium 4 GM Inhalation Spray INH SCH ×4 (01:42→14:25)
[2021-09-07 07:21] LABS: BLOOD UREA NITROGEN,BUN 18 mg/dL (7.0-18.0); CARBON DIOXIDE,CO2 23.6 mmol/L (21.0-32.0); CHLORIDE,CL 101 mmol/L (98-107); GLUCOSE RANDOM 105 mg/dL (74-106); POTASSIUM,K 3.9 mmol/L (3.5-5.1); SODIUM,NA 134 mmol/L (136-148)
[2021-09-07] MEDS: Pantoprazole 40 MG Tab.CR PO SCH (08:50)
[2021-09-07] MEDS: Dexamethasone 4 MG Tab PO SCH (08:50)
[2021-09-07] MEDS: Clopidogrel 75 MG Tab PO SCH (08:50)
[2021-09-07] MEDS: Venlafaxine 37.5 MG Cap.ER PO SCH (08:50)
[2021-09-07] MEDS: Lisinopril 10 MG Tab PO SCH (08:50)
[2021-09-07] MEDS: buPROPion 150 MG Tab.SR PO SCH ×2 (08:50→21:05)
[2021-09-07] MEDS: Aspirin 81 MG Tab.EC PO SCH (08:50)
--- NOTE | 2021-09-07 11:10 | PCM.PN ---
- General Info Date of Service: 09/07/21 - Patient Data Vitals - Most Recent: Last Vital Signs Temp 36.7 C 09/07/21 10:00 Pulse 60 09/03/21 06:45 Resp 22 H 09/07/21 10:00 BP 92/62 09/07/21 10:00 Pulse Ox 90 L 09/07/21 10:00 Weight - Most Recent: 100.108 kg I&O - Last 24 Hours: Intake & Output 09/06/21 09/07/21 09/07/21 22:59 06:59 14:59 Intake Total 4500 1200 Balance 4500 1200 Lab Results Last 24 Hours: Laboratory Results - last 24 hr 09/07/21 09/07/21 Range/Units 06:20 06:20 WBC 8.00 (4.0-11.0) K/uL RBC 4.92 (4.50-5.90) M/uL Hgb 12.3 L (13.0-17.0) g/dL Hct 38.0 (38.0-50.0) % MCV 77.2 L (80.0-98.0) fL MCH 25.0 L (27.0-32.0) pg MCHC 32.4 (31.0-37.0) g/dL RDW Std Deviation 48.7 (28.0-62.0) fl RDW Coeff of Juve 17 H (11.0-15.0) % Plt Count 417 H (150-400) K/uL MPV 10.10 (7.40-12.00) fL Neut % (Auto) 72.5 (48.0-80.0) % Lymph % (Auto) 17.5 (16.0-40.0) % [place] % (Auto) 7.9 (0.0-15.0) % Eos % (Auto) 2.0 (0.0-7.0) % Baso % (Auto) 0.1 (0.0-1.5) % Neut # (Auto) 5.8 H (1.4-5.7) K/uL Lymph # (Auto) 1.4 (0.6-2.4) K/uL [place] # (Auto) 0.6 (0.0-0.8) K/uL Eos # (Auto) 0.2 (0.0-0.7) K/uL Baso # (Auto) 0.0 (0.0-0.1) K/uL Nucleated RBC % 0.0 /100WBC Nucleated RBCs # 0 K/uL Sodium 134 L (136-148) mmol/L Potassium 3.9 (3.5-5.1) mmol/L Chloride 101 (98-107) mmol/L Carbon Dioxide 23.6 (21.0-32.0) mmol/L BUN 18 (7.0-18.0) mg/dL Creatinine 1.0 (0.8-1.3) mg/dL Est Cr Clr Drug Dosing 112.12 mL/min Estimated GFR (MDRD) > 60.0 ml/min Glucose 105 (74-106) mg/dL Calcium 8.3 L (8.5-10.1) mg/dL Total Bilirubin 0.4 (0.2-1.0) mg/dL AST 60 H (15-37) IU/L ALT 203 H (14-63) IU/L Alkaline Phosphatase 151 H (46-116) U/L Total Protein 7.3 (6.4-8.2) g/dL Albumin 2.4 L (3.4-5.0) g/dL Globulin 4.9 H (2.6-4.0) g/dL Albumin/Globulin Ratio 0.5 L (0.9-1.6) Med Orders - Current: Current Medications Acetaminophen (Acetaminophen 325 Mg Tab) 650 mg PO Q4H PRN PRN Reason: Pain (Mild 1-3)/fever Albuterol/Ipratropium (Albuterol/Ipratropium 4 Gm Inhalation [place]) 0 gm INH Q4HRRT [facility] Last Admin: 09/07/21 10:43 Dose: 1 puff Documented by: Albuterol/Ipratropium (Albuterol/Ipratropium 3.0-0.5 Mg/3 Ml Neb Soln) 3 ml NEB Q4HRRT PRN PRN Reason: Dyspnea Aspirin (Aspirin 81 Mg Tab.Ec) 81 mg PO DAILY [facility] Last Admin: 09/07/21 08:50 Dose: 81 mg Documented by: Atorvastatin Calcium (Atorvastatin 40 Mg Tab) 40 mg PO BEDTIME [facility] Last Admin: 09/06/21 20:14 Dose: 40 mg Documented by: Baricitinib (Baricitinib 2 Mg Tab) 4 mg PO DAILY [facility] Last Admin: 09/07/21 08:50 Dose: 4 mg Documented by: Benzocaine/Menthol (Benzocaine/Cetylpyridinium/Menthol Lozenge) 1 lozenge MUCMEM Q6H PRN PRN Reason: Sore Throat Last Admin: 09/01/21 21:47 Dose: 1 lozenge Documented by: Benzonatate (Benzonatate 100 Mg Cap) 100 mg PO TID PRN PRN Reason: Cough Last Admin: 09/03/21 16:56 Dose: 100 mg Documented by: Bupropion HCl (Bupropion 150 Mg Tab.Sr) 150 mg PO BID [facility] Last Admin: 09/07/21 08:50 Dose: 150 mg Documented by: Clopidogrel Bisulfate (Clopidogrel 75 Mg Tab) 75 mg PO DAILY [facility] Last Admin: 09/07/21 08:50 Dose: 75 mg Documented by: Dexamethasone (Dexamethasone 4 Mg Tab) 6 mg PO DAILY [facility] Last Admin: 09/07/21 08:50 Dose: 6 mg Documented by: Enoxaparin Sodium (Enoxaparin 40 Mg/0.4 Ml Syringe) 40 mg SUBCUT Q24H [facility] Last Admin: 09/06/21 16:49 Dose: 40 mg Documented by: Guaifenesin (Guaifenesin 100 Mg/5 Ml Soln 5 Ml Ud Cup) 100 mg PO Q4H PRN PRN Reason: Cough Last Admin: 09/03/21 11:30 Dose: 100 mg Documented by: Lisinopril (Lisinopril 10 Mg Tab) 10 mg PO DAILY [facility] Last Admin: 09/07/21 08:50 Dose: 10 mg Documented by: Mirtazapine (Mirtazapine 15 Mg Tab) 30 mg PO BEDTIME [facility] Last Admin: 09/06/21 20:13 Dose: 30 mg Documented by: Ondansetron HCl (Ondansetron 4 Mg/2 Ml Sdv) 4 mg IVPUSH Q4H PRN PRN Reason: nausea and vomiting Pantoprazole Sodium (Pantoprazole 40 Mg Tab.Cr) 40 mg PO DAILY [facility] Last Admin: 09/07/21 08:50 Dose: 40 mg Documented by: Sodium Chloride (Sodium Chloride 0.9% 10 Ml Syringe) 10 ml FLUSH ASDIRECTED PRN PRN Reason: Keep Vein Open Last Admin: 08/31/21 09:49 Dose: 10 ml Documented by: Sodium Chloride (Sodium Chloride 0.9% 2.5 Ml Syringe) 2.5 ml FLUSH ASDIRECTED PRN PRN Reason: Keep Vein Open Last Admin: 08/31/21 09:49 Dose: 2.5 ml Documented by: Venlafaxine HCl (Venlafaxine 37.5 Mg Cap.Er) 37.5 mg PO DAILY [facility] Last Admin: 09/07/21 08:50 Dose: 37.5 mg Documented by: Discontinued Medications Albuterol/Ipratropium (Albuterol/Ipratropium 3.0-0.5 Mg/3 Ml Neb Soln) 6 ml NEB ONETIME ONE Stop: 08/31/21 09:39 Last Admin: 08/31/21 09:49 Dose: 6 ml Documented by: Albuterol/Ipratropium (Albuterol/Ipratropium 4 Gm Inhalation [place]) Confirm Administered Dose 4 gm INH .STK-MED ONE Stop: 08/31/21 23:03 Last Admin: 08/31/21 23:21 Dose: Not Given Documented by: Carbamide Perox/Anhydrous Glycerin (Carbamide Peroxide 6.5% Otic Soln 15 Ml Bottle) 1 ml EARRT BID [facility] Stop: 09/06/21 12:00 Last Admin: 09/06/21 09:31 Dose: 1 ml Documented by: Carvedilol (Carvedilol 6.25 Mg Tab) 6.25 mg PO BID [facility] Last Admin: 09/02/21 09:04 Dose: 6.25 mg Documented by: Dexamethasone (Dexamethasone 10 Mg/Ml Sdv) 10 mg IVPUSH ONETIME ONE Stop: 08/31/21 09:34 Last Admin: 08/31/21 09:49 Dose: 10 mg Documented by: Remdesivir 200 mg/ Sodium (Chloride) 250 mls @ 250 mls/hr IV ONETIME ONE Stop: 08/31/21 09:40 Last Admin: 08/31/21 10:18 Dose: Not Given Documented by: Remdesivir 200 mg/ Sodium (Chloride) 250 mls @ 250 mls/hr IV ONETIME ONE Stop: 08/31/21 10:59 Last Admin: 08/31/21 10:16 Dose: 250 mls/hr Documented by: Sodium Chloride (Normal Saline) 1,000 mls @ 10 mls/hr IV STAT [facility] Stop: 09/04/21 14:06 Last Admin: 08/31/21 10:08 Dose: 10 mls/hr Documented by: Remdesivir 100 mg/ Sodium (Chloride) 100 mls @ 100 mls/hr IV Q24H [facility] Stop: 09/04/21 09:59 Last Admin: 09/04/21 08:24 Dose: 100 mls/hr Documented by: Iopamidol (Iopamidol 755 Mg/Ml 500 Ml Multipack Bottle) 100 ml IVPUSH ONETIME ONE Stop: 08/31/21 12:18 Last Admin: 08/31/21 12:18 Dose: 100 ml Documented by: Lorazepam (Lorazepam 2 Mg/Ml Sdv) 0.5 mg IVPUSH ONETIME ONE Stop: 08/31/21 09:55 Last Admin: 08/31/21 10:05 Dose: 0.5 mg Documented by: Ondansetron HCl (Ondansetron 4 Mg/2 Ml Sdv) Confirm Administered Dose 4 mg .SARBJIT GUSMAN-MED ONE Stop: 08/31/21 09:46 Last Admin: 08/31/21 09:48 Dose: Not Given Documented by: Ondansetron HCl (Ondansetron 4 Mg/2 Ml Sdv) 4 mg IVPUSH ONETIME ONE Stop: 08/31/21 09:50 Last Admin: 08/31/21 09:50 Dose: 4 mg Documented by: - Exam Lungs: Clear to Auscultation, Normal Respiratory Effort Cardiovascular: Regular Rate, Regular Rhythm GI/Abdominal Exam: Soft, Non-Tender, No Distention Extremities: Non-Tender, No Pedal Edema Skin: Warm, Dry, Intact Neurological: No New Focal Deficit - Patient Data Lab Results Last 24 hrs: Laboratory Results - last 24 hr 09/07/21 09/07/21 Range/Units 06:20 06:20 WBC 8.00 (4.0-11.0) K/uL RBC 4.92 (4.50-5.90) M/uL Hgb 12.3 L (13.0-17.0) g/dL Hct 38.0 (38.0-50.0) % MCV 77.2 L (80.0-98.0) fL MCH 25.0 L (27.0-32.0) pg MCHC 32.4 (31.0-37.0) g/dL RDW Std Deviation 48.7 (28.0-62.0) fl RDW Coeff of Juve 17 H (11.0-15.0) % Plt Count 417 H (150-400) K/uL MPV 10.10 (7.40-12.00) fL Neut % (Auto) 72.5 (48.0-80.0) % Lymph % (Auto) 17.5 (16.0-40.0) % [place] % (Auto) 7.9 (0.0-15.0) % Eos % (Auto) 2.0 (0.0-7.0) % Baso % (Auto) 0.1 (0.0-1.5) % Neut # (Auto) 5.8 H (1.4-5.7) K/uL Lymph # (Auto) 1.4 (0.6-2.4) K/uL [place] # (Auto) 0.6 (0.0-0.8) K/uL Eos # (Auto) 0.2 (0.0-0.7) K/uL Baso # (Auto) 0.0 (0.0-0.1) K/uL Nucleated RBC % 0.0 /100WBC Nucleated RBCs # 0 K/uL Sodium 134 L (136-148) mmol/L Potassium 3.9 (3.5-5.1) mmol/L Chloride 101 (98-107) mmol/L Carbon Dioxide 23.6 (21.0-32.0) mmol/L BUN 18 (7.0-18.0) mg/dL Creatinine 1.0 (0.8-1.3) mg/dL Est Cr Clr Drug Dosing 112.12 mL/min Estimated GFR (MDRD) > 60.0 ml/min Glucose 105 (74-106) mg/dL Calcium 8.3 L (8.5-10.1) mg/dL Total Bilirubin 0.4 (0.2-1.0) mg/dL AST 60 H (15-37) IU/L ALT 203 H (14-63) IU/L Alkaline Phosphatase 151 H (46-116) U/L Total Protein 7.3 (6.4-8.2) g/dL Albumin 2.4 L (3.4-5.0) g/dL Globulin 4.9 H (2.6-4.0) g/dL Albumin/Globulin Ratio 0.5 L (0.9-1.6) Result Diagrams: 09/07/21 06:20 09/07/21 06:20 Sepsis Event Note - Evaluation Sepsis Screening Result: No Definite Risk - Focused Exam Vital Signs: Vital Signs Temp Resp BP BP Pulse Ox 09/07/21 10:00 36.7 C 22 H 92/62 90 L 09/07/21 08:50 117/70 09/07/21 08:49 22 H 94 L 09/07/21 07:59 24 H 117/70 93 L 09/07/21 07:00 17 95/49 L 94 L 09/07/21 06:00 25 H 115/68 91 L 09/07/21 05:00 36.2 C 20 102/47 L 95 09/07/21 04:00 27 H 124/71 91 L 09/07/21 03:00 21 H 122/68 91 L 09/07/21 02:00 20 104/51 L 96 09/07/21 01:00 25 H 102/46 L 96 09/07/21 00:00 28 H 128/79 92 L - Problem List & Annotations (1) Respiratory failure with hypoxia SNOMED Code(s): 09412193175954079 Code(s): J96.91 - RESPIRATORY FAILURE, UNSPECIFIED WITH HYPOXIA Status: Acute Current Visit: Yes (2) Pneumonia due to COVID-19 virus SNOMED Code(s): 156495330391483486 Code(s): U07.1 - COVID-19; J12.82 - PNEUMONIA DUE TO CORONAVIRUS DISEASE 2019 Status: Acute Current Visit: Yes - Problem List Review Problem List Initiated/Reviewed/Updated: Yes - My Orders Last 24 Hours: My Active Orders 09/07/21 11:00 Transfer Patient (Change bed) [ADT] Routine - Assessment Assessment:: 45 yo male admitted for acute hypoxic respiratory failure from COVID: Hypoxia Patient weaned off HHFNC and on 5 L NC COVID; continue baricitinib, dexamethason, finished remdesivir Lovenox for DVT prophylaxis -Aspirin 81 mg. Atorvastatin 40 mg bedtime. Bupropion 150 mg bid. Plavix 75 mg. Lisinopril 10 mg -Mirtazapine 30 mg bedtime. Venlafaxine 37.5 mg -Heart healthy diet. -Carvedilol 6.25 mg has been stopped temporarily due to bradycardia
[2021-09-07] MEDS: Enoxaparin 40 MG/0.4 ML Syringe SUBCUT SCH (15:21)
[2021-09-07] MEDS: Albuterol/Ipratropium 4 GM Inhalation Spray INH PRN (20:57)
[2021-09-07] MEDS: atorvaSTATin 40 MG Tab PO SCH (21:04)
[2021-09-07] MEDS: Mirtazapine 15 MG Tab PO SCH (21:04)
[2021-09-08 06:42] LABS: BLOOD UREA NITROGEN,BUN 21 mg/dL (7.0-18.0); CARBON DIOXIDE,CO2 24.1 mmol/L (21.0-32.0); CHLORIDE,CL 101 mmol/L (98-107); GLUCOSE RANDOM 153 mg/dL (74-106); POTASSIUM,K 3.9 mmol/L (3.5-5.1); SODIUM,NA 133 mmol/L (136-148)
[2021-09-08] MEDS: Dexamethasone 4 MG Tab PO SCH (10:00)
[2021-09-08] MEDS: Clopidogrel 75 MG Tab PO SCH (10:00)
[2021-09-08] MEDS: buPROPion 150 MG Tab.SR PO SCH ×2 (10:00→21:34)
[2021-09-08] MEDS: Pantoprazole 40 MG Tab.CR PO SCH (10:00)
[2021-09-08] MEDS: Lisinopril 10 MG Tab PO SCH (10:01)
[2021-09-08] MEDS: Venlafaxine 37.5 MG Cap.ER PO SCH (10:01)
[2021-09-08] MEDS: Aspirin 81 MG Tab.EC PO SCH (10:02)
--- NOTE | 2021-09-08 11:25 | PCM.PN ---
<Lamine Perez - Last Filed: 09/08/21 11:19> - General Info Date of Service: 09/08/21 Subjective Update: The patient is a 45-year-old male, on day 9 of service, with a significant past medical history of coronary artery disease and depression, who was admitted to the medical floor due to acute respiratory failure secondary to COVID-19 pneumonia. The patient is in intensive care unit downgrade and is improving. Upon interview today the patient admits that he has no shortness of breath at rest and that it is only evident upon exertion. He is currently on 3 L of oxygen and is saturating above 90%. If the patient continues to improve as he has been he may potentially be discharged tomorrow after a walking trial is done to decipher how much oxygen he will need when going home. The patient is eating and drinking well, and has no issues with urination. He admits that he is not having as many bowel movements as he had outside of hospital but attributes this to not eating as much as he is used to. Upon further interview, he denies fever, chills, cough, chest pain, palpitations, and other complaints. - Review of Systems General: Reports: Fatigue. Denies: Fever, Chills HEENT: Denies: Headaches Pulmonary: Reports: Shortness of Breath. Denies: Cough Cardiovascular: Reports: Dyspnea on Exertion. Denies: Chest Pain, Palpitations Gastrointestinal: Denies: Abdominal Pain Genitourinary: Denies: Dysuria - Patient Data Vitals - Most Recent: Last Vital Signs Temp 98.3 F 09/08/21 08:00 Pulse 70 09/08/21 08:00 Resp 16 09/08/21 08:00 BP 104/69 09/08/21 10:01 Pulse Ox 91 L 09/08/21 08:00 Weight - Most Recent: 100.108 kg I&O - Last 24 Hours: Intake & Output 09/07/21 09/08/21 09/08/21 22:59 06:59 14:59 Intake Total 1500 1050 Output Total 0 Balance 1500 1050 Lab Results Last 24 Hours: Laboratory Results - last 24 hr 09/08/21 09/08/21 Range/Units 05:30 05:30 WBC 9.16 (4.0-11.0) K/uL RBC 4.74 (4.50-5.90) M/uL Hgb 11.8 L (13.0-17.0) g/dL Hct 36.8 L (38.0-50.0) % MCV 77.6 L (80.0-98.0) fL MCH 24.9 L (27.0-32.0) pg MCHC 32.1 (31.0-37.0) g/dL RDW Std Deviation 49.9 (28.0-62.0) fl RDW Coeff of Juve 18 H (11.0-15.0) % Plt Count 428 H (150-400) K/uL MPV 10.10 (7.40-12.00) fL Neut % (Auto) 72.6 (48.0-80.0) % Lymph % (Auto) 15.1 L (16.0-40.0) % [place] % (Auto) 10.6 (0.0-15.0) % Eos % (Auto) 1.7 (0.0-7.0) % Baso % (Auto) 0.0 (0.0-1.5) % Neut # (Auto) 6.7 H (1.4-5.7) K/uL Lymph # (Auto) 1.4 (0.6-2.4) K/uL [place] # (Auto) 1.0 H (0.0-0.8) K/uL Eos # (Auto) 0.2 (0.0-0.7) K/uL Baso # (Auto) 0.0 (0.0-0.1) K/uL Nucleated RBC % 0.0 /100WBC Nucleated RBCs # 0 K/uL Sodium 133 L (136-148) mmol/L Potassium 3.9 (3.5-5.1) mmol/L Chloride 101 (98-107) mmol/L Carbon Dioxide 24.1 (21.0-32.0) mmol/L BUN 21 H (7.0-18.0) mg/dL Creatinine 1.0 (0.8-1.3) mg/dL Est Cr Clr Drug Dosing 112.12 mL/min Estimated GFR (MDRD) > 60.0 ml/min Glucose 153 H (74-106) mg/dL Calcium 7.9 L (8.5-10.1) mg/dL Total Bilirubin 0.3 (0.2-1.0) mg/dL AST 55 H (15-37) IU/L ALT 209 H (14-63) IU/L Alkaline Phosphatase 151 H (46-116) U/L Total Protein 6.8 (6.4-8.2) g/dL Albumin 2.2 L (3.4-5.0) g/dL Globulin 4.6 H (2.6-4.0) g/dL Albumin/Globulin Ratio 0.5 L (0.9-1.6) Med Orders - Current: Current Medications Acetaminophen (Acetaminophen 325 Mg Tab) 650 mg PO Q4H PRN PRN Reason: Pain (Mild 1-3)/fever Albuterol/Ipratropium (Albuterol/Ipratropium 3.0-0.5 Mg/3 Ml Neb Soln) 3 ml NEB Q4HRRT PRN PRN Reason: Dyspnea Albuterol/Ipratropium (Albuterol/Ipratropium 4 Gm Inhalation [place]) 0 gm INH Q4HRRT PRN PRN Reason: Shortness of Breath Last Admin: 09/07/21 20:57 Dose: 1 puff Documented by: Aspirin (Aspirin 81 Mg Tab.Ec) 81 mg PO DAILY [facility] Last Admin: 09/08/21 10:02 Dose: 81 mg Documented by: Atorvastatin Calcium (Atorvastatin 40 Mg Tab) 40 mg PO BEDTIME [facility] Last Admin: 09/07/21 21:04 Dose: 40 mg Documented by: Baricitinib (Baricitinib 2 Mg Tab) 4 mg PO DAILY [facility] Last Admin: 09/08/21 10:01 Dose: 4 mg Documented by: Benzocaine/Menthol (Benzocaine/Cetylpyridinium/Menthol Lozenge) 1 lozenge MUCMEM Q6H PRN PRN Reason: Sore Throat Last Admin: 09/01/21 21:47 Dose: 1 lozenge Documented by: Benzonatate (Benzonatate 100 Mg Cap) 100 mg PO TID PRN PRN Reason: Cough Last Admin: 09/03/21 16:56 Dose: 100 mg Documented by: Bupropion HCl (Bupropion 150 Mg Tab.Sr) 150 mg PO BID [facility] Last Admin: 09/08/21 10:00 Dose: 150 mg Documented by: Clopidogrel Bisulfate (Clopidogrel 75 Mg Tab) 75 mg PO DAILY [facility] Last Admin: 09/08/21 10:00 Dose: 75 mg Documented by: Dexamethasone (Dexamethasone 4 Mg Tab) 6 mg PO DAILY [facility] Last Admin: 09/08/21 10:00 Dose: 6 mg Documented by: Enoxaparin Sodium (Enoxaparin 40 Mg/0.4 Ml Syringe) 40 mg SUBCUT Q24H [facility] Last Admin: 09/07/21 15:21 Dose: 40 mg Documented by: Guaifenesin (Guaifenesin 100 Mg/5 Ml Soln 5 Ml Ud Cup) 100 mg PO Q4H PRN PRN Reason: Cough Last Admin: 09/03/21 11:30 Dose: 100 mg Documented by: Lisinopril (Lisinopril 10 Mg Tab) 10 mg PO DAILY [facility] Last Admin: 09/08/21 10:01 Dose: 10 mg Documented by: Mirtazapine (Mirtazapine 15 Mg Tab) 30 mg PO BEDTIME [facility] Last Admin: 09/07/21 21:04 Dose: 30 mg Documented by: Ondansetron HCl (Ondansetron 4 Mg/2 Ml Sdv) 4 mg IVPUSH Q4H PRN PRN Reason: nausea and vomiting Pantoprazole Sodium (Pantoprazole 40 Mg Tab.Cr) 40 mg PO DAILY [facility] Last Admin: 09/08/21 10:00 Dose: 40 mg Documented by: Sodium Chloride (Sodium Chloride 0.9% 10 Ml Syringe) 10 ml FLUSH ASDIRECTED PRN PRN Reason: Keep Vein Open Last Admin: 08/31/21 09:49 Dose: 10 ml Documented by: Sodium Chloride (Sodium Chloride 0.9% 2.5 Ml Syringe) 2.5 ml FLUSH ASDIRECTED PRN PRN Reason: Keep Vein Open Last Admin: 08/31/21 09:49 Dose: 2.5 ml Documented by: Venlafaxine HCl (Venlafaxine 37.5 Mg Cap.Er) 37.5 mg PO DAILY [facility] Last Admin: 09/08/21 10:01 Dose: 37.5 mg Documented by: Discontinued Medications Albuterol/Ipratropium (Albuterol/Ipratropium 3.0-0.5 Mg/3 Ml Neb Soln) 6 ml NEB ONETIME ONE Stop: 08/31/21 09:39 Last Admin: 08/31/21 09:49 Dose: 6 ml Documented by: Albuterol/Ipratropium (Albuterol/Ipratropium 4 Gm Inhalation [place]) 0 gm INH Q4HRRT [facility] Last Admin: 09/07/21 14:25 Dose: Not Given Documented by: Albuterol/Ipratropium (Albuterol/Ipratropium 4 Gm Inhalation [place]) Confirm Administered Dose 4 gm INH .STK-MED ONE Stop: 08/31/21 23:03 Last Admin: 08/31/21 23:21 Dose: Not Given Documented by: Carbamide Perox/Anhydrous Glycerin (Carbamide Peroxide 6.5% Otic Soln 15 Ml Bottle) 1 ml EARRT BID RICHI Stop: 09/06/21 12:00 Last Admin: 09/06/21 09:31 Dose: 1 ml Documented by: Carvedilol (Carvedilol 6.25 Mg Tab) 6.25 mg PO BID [facility] Last Admin: 09/02/21 09:04 Dose: 6.25 mg Documented by: Dexamethasone (Dexamethasone 10 Mg/Ml Sdv) 10 mg IVPUSH ONETIME ONE Stop: 08/31/21 09:34 Last Admin: 08/31/21 09:49 Dose: 10 mg Documented by: Remdesivir 200 mg/ Sodium (Chloride) 250 mls @ 250 mls/hr IV ONETIME ONE Stop: 08/31/21 09:40 Last Admin: 08/31/21 10:18 Dose: Not Given Documented by: Remdesivir 200 mg/ Sodium (Chloride) 250 mls @ 250 mls/hr IV ONETIME ONE Stop: 08/31/21 10:59 Last Admin: 08/31/21 10:16 Dose: 250 mls/hr Documented by: Sodium Chloride (Normal Saline) 1,000 mls @ 10 mls/hr IV STAT STA Stop: 09/04/21 14:06 Last Admin: 08/31/21 10:08 Dose: 10 mls/hr Documented by: Remdesivir 100 mg/ Sodium (Chloride) 100 mls @ 100 mls/hr IV Q24H RICHI Stop: 09/04/21 09:59 Last Admin: 09/04/21 08:24 Dose: 100 mls/hr Documented by: Iopamidol (Iopamidol 755 Mg/Ml 500 Ml Multipack Bottle) 100 ml IVPUSH ONETIME O NE Stop: 08/31/21 12:18 Last Admin: 08/31/21 12:18 Dose: 100 ml Documented by: Lorazepam (Lorazepam 2 Mg/Ml Sdv) 0.5 mg IVPUSH ONETIME ONE Stop: 08/31/21 09:55 Last Admin: 08/31/21 10:05 Dose: 0.5 mg Documented by: Ondansetron HCl (Ondansetron 4 Mg/2 Ml Sdv) Confirm Administered Dose 4 mg .ROUTE .STK-MED ONE Stop: 08/31/21 09:46 Last Admin: 08/31/21 09:48 Dose: Not Given Documented by: Ondansetron HCl (Ondansetron 4 Mg/2 Ml Sdv) 4 mg IVPUSH ONETIME ONE Stop: 08/31/21 09:50 Last Admin: 08/31/21 09:50 Dose: 4 mg Documented by: - Exam General: Alert, Oriented, Cooperative HEENT: Mucous Membr. Moist/[place] Neck: No: Lymphadenopathy Lungs: Wheezing Cardiovascular: Regular Rate, Regular Rhythm, No Murmurs GI/Abdominal Exam: Normal Bowel Sounds, Soft, Non-Tender Extremities: No Pedal Edema Psy/Mental Status: Alert, Normal Mood - Patient Data Lab Results Last 24 hrs: Laboratory Results - last 24 hr 09/08/21 09/08/21 Range/Units 05:30 05:30 WBC 9.16 (4.0-11.0) K/uL RBC 4.74 (4.50-5.90) M/uL Hgb 11.8 L (13.0-17.0) g/dL Hct 36.8 L (38.0-50.0) % MCV 77.6 L (80.0-98.0) fL MCH 24.9 L (27.0-32.0) pg MCHC 32.1 (31.0-37.0) g/dL RDW Std Deviation 49.9 (28.0-62.0) fl RDW Coeff of Juve 18 H (11.0-15.0) % Plt Count 428 H (150-400) K/uL MPV 10.10 (7.40-12.00) fL Neut % (Auto) 72.6 (48.0-80.0) % Lymph % (Auto) 15.1 L (16.0-40.0) % [place] % (Auto) 10.6 (0.0-15.0) % Eos % (Auto) 1.7 (0.0-7.0) % Baso % (Auto) 0.0 (0.0-1.5) % Neut # (Auto) 6.7 H (1.4-5.7) K/uL Lymph # (Auto) 1.4 (0.6-2.4) K/uL [place] # (Auto) 1.0 H (0.0-0.8) K/uL Eos # (Auto) 0.2 (0.0-0.7) K/uL Baso # (Auto) 0.0 (0.0-0.1) K/uL Nucleated RBC % 0.0 /100WBC Nucleated RBCs # 0 K/uL Sodium 133 L (136-148) mmol/L Potassium 3.9 (3.5-5.1) mmol/L Chloride 101 (98-107) mmol/L Carbon Dioxide 24.1 (21.0-32.0) mmol/L BUN 21 H (7.0-18.0) mg/dL Creatinine 1.0 (0.8-1.3) mg/dL Est Cr Clr Drug Dosing 112.12 mL/min Estimated GFR (MDRD) > 60.0 ml/min Glucose 153 H (74-106) mg/dL Calcium 7.9 L (8.5-10.1) mg/dL Total Bilirubin 0.3 (0.2-1.0) mg/dL AST 55 H (15-37) IU/L ALT 209 H (14-63) IU/L Alkaline Phosphatase 151 H (46-116) U/L Total Protein 6.8 (6.4-8.2) g/dL Albumin 2.2 L (3.4-5.0) g/dL Globulin 4.6 H (2.6-4.0) g/dL Albumin/Globulin Ratio 0.5 L (0.9-1.6) Result Diagrams: 09/08/21 05:30 09/08/21 05:30 Sepsis Event Note - Evaluation Sepsis Screening Result: No Definite Risk - Focused Exam Vital Signs: Vital Signs Temp Pulse Resp BP BP Pulse Ox 09/08/21 10:01 104/69 09/08/21 08:00 98.3 F 70 16 104/69 91 L 09/08/21 04:03 97.8 F 19 110/50 L 95 09/08/21 00:15 17 112/73 94 L - Problem List & Annotations (1) CAD (coronary artery disease) SNOMED Code(s): 96802818 Code(s): I25.10 - ATHSCL HEART DISEASE OF [place] CORONARY ARTERY W/O ANG PCT RS Status: Acute Current Visit: Yes (2) Depression SNOMED Code(s): 18114403 Code(s): F32.A - DEPRESSION, UNSPECIFIED Status: Acute Current Visit: Yes (3) Respiratory failure with hypoxia SNOMED Code(s): 56183951200702260 Code(s): J96.91 - RESPIRATORY FAILURE, UNSPECIFIED WITH HYPOXIA Status: Acute Current Visit: Yes (4) COVID-19 SNOMED Code(s): 667563650 Code(s): U07.1 - COVID-19 Status: Acute Current Visit: No - Problem List Review Problem List Initiated/Reviewed/Updated: Yes - Plan Plan:: 1. Acute respiratory failure secondary to COVID-19 pneumonia -The patient is currently saturating over 90% while on 3 L of oxygen, he is improving and we will continue to wean as appropriate. Potential discharge for tomorrow after walking trial to assess home oxygen requirement. -Continue the patient on dexamethasone 6 mg per oral route once a day -Continue the patient on baricitinib 4 mg per oral route once a day -Continue Tessalon Perles and other supportive treatment -Encourage incentive spirometry in the prone position -Remdesivir course has been completed 2. Past medical history of CAD and depression -Continue aspirin, atorvastatin, Plavix, lisinopril -Continue mirtazapine, venlafaxine, bupropion <Willian,Hooria - Last Filed: 09/08/21 13:11> - General Info Subjective Update: I have seen and evaluated the patient and agree with the residents note unless specified in my note - Patient Data Vitals - Most Recent: Last Vital Signs Temp 36.8 C 09/08/21 08:00 Pulse 70 09/08/21 08:00 Resp 16 09/08/21 08:00 BP 104/69 09/08/21 10:01 Pulse Ox 91 L 09/08/21 08:00 I&O - Last 24 Hours: Intake & Output 09/07/21 09/08/21 09/08/21 22:59 06:59 14:59 Intake Total 1500 1050 Output Total 0 Balance 1500 1050 Lab Results Last 24 Hours: Laboratory Results - last 24 hr 09/08/21 09/08/21 Range/Units 05:30 05:30 WBC 9.16 (4.0-11.0) K/uL RBC 4.74 (4.50-5.90) M/uL Hgb 11.8 L (13.0-17.0) g/dL Hct 36.8 L (38.0-50.0) % MCV 77.6 L (80.0-98.0) fL MCH 24.9 L (27.0-32.0) pg MCHC 32.1 (31.0-37.0) g/dL RDW Std Deviation 49.9 (28.0-62.0) fl RDW Coeff of Juve 18 H (11.0-15.0) % Plt Count 428 H (150-400) K/uL MPV 10.10 (7.40-12.00) fL Neut % (Auto) 72.6 (48.0-80.0) % Lymph % (Auto) 15.1 L (16.0-40.0) % [place] % (Auto) 10.6 (0.0-15.0) % Eos % (Auto) 1.7 (0.0-7.0) % Baso % (Auto) 0.0 (0.0-1.5) % Neut # (Auto) 6.7 H (1.4-5.7) K/uL Lymph # (Auto) 1.4 (0.6-2.4) K/uL [place] # (Auto) 1.0 H (0.0-0.8) K/uL Eos # (Auto) 0.2 (0.0-0.7) K/uL Baso # (Auto) 0.0 (0.0-0.1) K/uL Nucleated RBC % 0.0 /100WBC Nucleated RBCs # 0 K/uL Sodium 133 L (136-148) mmol/L Potassium 3.9 (3.5-5.1) mmol/L Chloride 101 (98-107) mmol/L Carbon Dioxide 24.1 (21.0-32.0) mmol/L BUN 21 H (7.0-18.0) mg/dL Creatinine 1.0 (0.8-1.3) mg/dL Est Cr Clr Drug Dosing 112.12 mL/min Estimated GFR (MDRD) > 60.0 ml/min Glucose 153 H (74-106) mg/dL Calcium 7.9 L (8.5-10.1) mg/dL Total Bilirubin 0.3 (0.2-1.0) mg/dL AST 55 H (15-37) IU/L ALT 209 H (14-63) IU/L Alkaline Phosphatase 151 H (46-116) U/L Total Protein 6.8 (6.4-8.2) g/dL Albumin 2.2 L (3.4-5.0) g/dL Globulin 4.6 H (2.6-4.0) g/dL Albumin/Globulin Ratio 0.5 L (0.9-1.6) Med Orders - Current: Current Medications Acetaminophen (Acetaminophen 325 Mg Tab) 650 mg PO Q4H PRN PRN Reason: Pain (Mild 1-3)/fever Albuterol/Ipratropium (Albuterol/Ipratropium 3.0-0.5 Mg/3 Ml Neb Soln) 3 ml NEB Q4HRRT PRN PRN Reason: Dyspnea Albuterol/Ipratropium (Albuterol/Ipratropium 4 Gm Inhalation [place]) 0 gm INH Q4HRRT PRN PRN Reason: Shortness of Breath Last Admin: 09/07/21 20:57 Dose: 1 puff Documented by: Aspirin (Aspirin 81 Mg Tab.Ec) 81 mg PO DAILY [facility] Last Admin: 09/08/21 10:02 Dose: 81 mg Documented by: Atorvastatin Calcium (Atorvastatin 40 Mg Tab) 40 mg PO BEDTIME [facility] Last Admin: 09/07/21 21:04 Dose: 40 mg Documented by: Baricitinib (Baricitinib 2 Mg Tab) 4 mg PO DAILY [facility] Last Admin: 09/08/21 10:01 Dose: 4 mg Documented by: Benzocaine/Menthol (Benzocaine/Cetylpyridinium/Menthol Lozenge) 1 lozenge MUCMEM Q6H PRN PRN Reason: Sore Throat Last Admin: 09/01/21 21:47 Dose: 1 lozenge Documented by: Benzonatate (Benzonatate 100 Mg Cap) 100 mg PO TID PRN PRN Reason: Cough Last Admin: 09/03/21 16:56 Dose: 100 mg Documented by: Bupropion HCl (Bupropion 150 Mg Tab.Sr) 150 mg PO BID [facility] Last Admin: 09/08/21 10:00 Dose: 150 mg Documented by: Clopidogrel Bisulfate (Clopidogrel 75 Mg Tab) 75 mg PO DAILY [facility] Last Admin: 09/08/21 10:00 Dose: 75 mg Documented by: Dexamethasone (Dexamethasone 4 Mg Tab) 6 mg PO DAILY [facility] Last Admin: 09/08/21 10:00 Dose: 6 mg Documented by: Enoxaparin Sodium (Enoxaparin 40 Mg/0.4 Ml Syringe) 40 mg SUBCUT Q24H [facility] Last Admin: 09/07/21 15:21 Dose: 40 mg Documented by: Guaifenesin (Guaifenesin 100 Mg/5 Ml Soln 5 Ml Ud Cup) 100 mg PO Q4H PRN PRN Reason: Cough Last Admin: 09/03/21 11:30 Dose: 100 mg Documented by: Lisinopril (Lisinopril 10 Mg Tab) 10 mg PO DAILY [facility] Last Admin: 09/08/21 10:01 Dose: 10 mg Documented by: Mirtazapine (Mirtazapine 15 Mg Tab) 30 mg PO BEDTIME [facility] Last Admin: 09/07/21 21:04 Dose: 30 mg Documented by: Ondansetron HCl (Ondansetron 4 Mg/2 Ml Sdv) 4 mg IVPUSH Q4H PRN PRN Reason: nausea and vomiting Pantoprazole Sodium (Pantoprazole 40 Mg Tab.Cr) 40 mg PO DAILY [facility] Last Admin: 09/08/21 10:00 Dose: 40 mg Documented by: Sodium Chloride (Sodium Chloride 0.9% 10 Ml Syringe) 10 ml FLUSH ASDIRECTED PRN PRN Reason: Keep Vein Open Last Admin: 08/31/21 09:49 Dose: 10 ml Documented by: Sodium Chloride (Sodium Chloride 0.9% 2.5 Ml Syringe) 2.5 ml FLUSH ASDIRECTED PRN PRN Reason: Keep Vein Open Last Admin: 08/31/21 09:49 Dose: 2.5 ml Documented by: Venlafaxine HCl (Venlafaxine 37.5 Mg Cap.Er) 37.5 mg PO DAILY [facility] Last Admin: 09/08/21 10:01 Dose: 37.5 mg Documented by: Discontinued Medications Albuterol/Ipratropium (Albuterol/Ipratropium 3.0-0.5 Mg/3 Ml Neb Soln) 6 ml NEB ONETIME ONE Stop: 08/31/21 09:39 Last Admin: 08/31/21 09:49 Dose: 6 ml Documented by: Albuterol/Ipratropium (Albuterol/Ipratropium 4 Gm Inhalation [place]) 0 gm INH Q4HRRT [facility] Last Admin: 09/07/21 14:25 Dose: Not Given Documented by: Albuterol/Ipratropium (Albuterol/Ipratropium 4 Gm Inhalation [place]) Confirm Administered Dose 4 gm INH .STK-MED ONE Stop: 08/31/21 23:03 Last Admin: 08/31/21 23:21 Dose: Not Given Documented by: Carbamide Perox/Anhydrous Glycerin (Carbamide Peroxide 6.5% Otic Soln 15 Ml Bottle) 1 ml EARRT BID [facility] Stop: 09/06/21 12:00 Last Admin: 09/06/21 09:31 Dose: 1 ml Documented by: Carvedilol (Carvedilol 6.25 Mg Tab) 6.25 mg PO BID [facility] Last Admin: 09/02/21 09:04 Dose: 6.25 mg Documented by: Dexamethasone (Dexamethasone 10 Mg/Ml Sdv) 10 mg IVPUSH ONETIME ONE Stop: 08/31/21 09:34 Last Admin: 08/31/21 09:49 Dose: 10 mg Documented by: Remdesivir 200 mg/ Sodium (Chloride) 250 mls @ 250 mls/hr IV ONETIME ONE Stop: 08/31/21 09:40 Last Admin: 08/31/21 10:18 Dose: Not Given Documented by: Remdesivir 200 mg/ Sodium (Chloride) 250 mls @ 250 mls/hr IV ONETIME ONE Stop: 08/31/21 10:59 Last Admin: 08/31/21 10:16 Dose: 250 mls/hr Documented by: Sodium Chloride (Normal Saline) 1,000 mls @ 10 mls/hr IV STAT STA Stop: 09/04/21 14:06 Last Admin: 08/31/21 10:08 Dose: 10 mls/hr Documented by: Remdesivir 100 mg/ Sodium (Chloride) 100 mls @ 100 mls/hr IV Q24H [facility] Stop: 09/04/21 09:59 Last Admin: 09/04/21 08:24 Dose: 100 mls/hr Documented by: Iopamidol (Iopamidol 755 Mg/Ml 500 Ml Multipack Bottle) 100 ml IVPUSH ONETIME ONE Stop: 08/31/21 12:18 Last Admin: 08/31/21 12:18 Dose: 100 ml Documented by: Lorazepam (Lorazepam 2 Mg/Ml Sdv) 0.5 mg IVPUSH ONETIME ONE Stop: 08/31/21 09:55 Last Admin: 08/31/21 10:05 Dose: 0.5 mg Documented by: Ondansetron HCl (Ondansetron 4 Mg/2 Ml Sdv) Confirm Administered Dose 4 mg .ROUTE .STK-MED ONE Stop: 08/31/21 09:46 Last Admin: 08/31/21 09:48 Dose: Not Given Documented by: Ondansetron HCl (Ondansetron 4 Mg/2 Ml Sdv) 4 mg IVPUSH ONETIME ONE Stop: 08/31/21 09:50 Last Admin: 08/31/21 09:50 Dose: 4 mg Documented by: - Patient Data Lab Results Last 24 hrs: Laboratory Results - last 24 hr 09/08/21 09/08/21 Range/Units 05:30 05:30 WBC 9.16 (4.0-11.0) K/uL RBC 4.74 (4.50-5.90) M/uL Hgb 11.8 L (13.0-17.0) g/dL Hct 36.8 L (38.0-50.0) % MCV 77.6 L (80.0-98.0) fL MCH 24.9 L (27.0-32.0) pg MCHC 32.1 (31.0-37.0) g/dL RDW Std Deviation 49.9 (28.0-62.0) fl RDW Coeff of Juve 18 H (11.0-15.0) % Plt Count 428 H (150-400) K/uL MPV 10.10 (7.40-12.00) fL Neut % (Auto) 72.6 (48.0-80.0) % Lymph % (Auto) 15.1 L (16.0-40.0) % [place] % (Auto) 10.6 (0.0-15.0) % Eos % (Auto) 1.7 (0.0-7.0) % Baso % (Auto) 0.0 (0.0-1.5) % Neut # (Auto) 6.7 H (1.4-5.7) K/uL Lymph # (Auto) 1.4 (0.6-2.4) K/uL [place] # (Auto) 1.0 H (0.0-0.8) K/uL Eos # (Auto) 0.2 (0.0-0.7) K/uL Baso # (Auto) 0.0 (0.0-0.1) K/uL Nucleated RBC % 0.0 /100WBC Nucleated RBCs # 0 K/uL Sodium 133 L (136-148) mmol/L Potassium 3.9 (3.5-5.1) mmol/L Chloride 101 (98-107) mmol/L Carbon Dioxide 24.1 (21.0-32.0) mmol/L BUN 21 H (7.0-18.0) mg/dL Creatinine 1.0 (0.8-1.3) mg/dL Est Cr Clr Drug Dosing 112.12 mL/min Estimated GFR (MDRD) > 60.0 ml/min Glucose 153 H (74-106) mg/dL Calcium 7.9 L (8.5-10.1) mg/dL Total Bilirubin 0.3 (0.2-1.0) mg/dL AST 55 H (15-37) IU/L ALT 209 H (14-63) IU/L Alkaline Phosphatase 151 H (46-116) U/L Total Protein 6.8 (6.4-8.2) g/dL Albumin 2.2 L (3.4-5.0) g/dL Globulin 4.6 H (2.6-4.0) g/dL Albumin/Globulin Ratio 0.5 L (0.9-1.6) Result Diagrams: 09/08/21 05:30 09/08/21 05:30 Sepsis Event Note - Focused Exam Vital Signs: Vital Signs Temp Pulse Resp BP BP Pulse Ox 09/08/21 10:01 104/69 09/08/21 08:00 36.8 C 70 16 104/69 91 L 09/08/21 04:03 36.6 C 19 110/50 L 95 - Problem List & Annotations (1) Pneumonia due to COVID-19 virus SNOMED Code(s): 201774148749507660 Code(s): U07.1 - COVID-19; J12.82 - PNEUMONIA DUE TO CORONAVIRUS DISEASE 2018 Status: Acute Current Visit: Yes (2) Respiratory failure with hypoxia SNOMED Code(s): 67600089211901365 Code(s): J96.91 - RESPIRATORY FAILURE, UNSPECIFIED WITH HYPOXIA Status: Acute Current Visit: Yes (3) COVID-19 SNOMED Code(s): 496058983 Code(s): U07.1 - COVID-19 Status: Acute Current Visit: No (4) History of CVA (cerebrovascular accident) SNOMED Code(s): 557799961 Code(s): Z86.73 - PRSNL HX OF TIA (TIA), AND CEREB INFRC W/O RESID DEFICITS Status: Acute Current Visit: Yes (5) History of KS (myocardial infarction) SNOMED Code(s): 103517089 Code(s): I25.2 - OLD MYOCARDIAL INFARCTION Status: Acute Current Visit: Yes - My Orders Last 24 Hours: My Active Orders 09/07/21 14:30 Albuterol/Ipratropium [Combivent Respimat] 0 gm INH Q4HRRT PRN
[2021-09-08] MEDS: Enoxaparin 40 MG/0.4 ML Syringe SUBCUT SCH (15:44)
[2021-09-08] MEDS: Mirtazapine 15 MG Tab PO SCH (21:34)
[2021-09-08] MEDS: atorvaSTATin 40 MG Tab PO SCH (21:34)
[2021-09-08] MEDS: Albuterol/Ipratropium 4 GM Inhalation Spray INH PRN (21:34)
[2021-09-09 07:07] LABS: BLOOD UREA NITROGEN,BUN 18 mg/dL (7.0-18.0); CARBON DIOXIDE,CO2 25.9 mmol/L (21.0-32.0); CHLORIDE,CL 101 mmol/L (98-107); GLUCOSE RANDOM 143 mg/dL (74-106); POTASSIUM,K 4.5 mmol/L (3.5-5.1); SODIUM,NA 135 mmol/L (136-148)
[2021-09-09] MEDS: Clopidogrel 75 MG Tab PO SCH (09:30)
[2021-09-09] MEDS: Venlafaxine 37.5 MG Cap.ER PO SCH (09:30)
[2021-09-09] MEDS: Aspirin 81 MG Tab.EC PO SCH (09:30)
[2021-09-09] MEDS: buPROPion 150 MG Tab.SR PO SCH (09:31)
[2021-09-09] MEDS: Dexamethasone 4 MG Tab PO SCH (09:31)
[2021-09-09] MEDS: Pantoprazole 40 MG Tab.CR PO SCH (09:31)
[2021-09-09] MEDS: Lisinopril 10 MG Tab PO SCH (09:35)
--- NOTE | 2021-09-09 10:21 | PCM.DCSUM1 ---
<Lamine Perez - Last Filed: 09/09/21 10:30> Discharge Summary - Hospital Course Free Text/Narrative:: The patient is a 45-year-old male, on day 10 of service, with a significant past medical history of coronary artery disease and depression, who was admitted to the medical floor due to acute respiratory failure secondary to COVID-19 pneumonia. The patient is an intensive care unit downgrade and has improved to the point where he can now be discharged. Throughout his hospital course he had fluctuating levels of oxygen demand, he was on CPAP, heated high flow, and nasal cannula. He had a walking trial done this morning which showed that he will require 3 L of oxygen while ambulating and when sleeping. He will be sent home on oxygen via [employer]. Throughout his hospital stay he was treated with the different protocol in regards to COVID-19 pneumonia including dexamethasone, remdesivir, baricitinib, Combivent, benzonatate, and Robitussin. He will be sent home with written prescriptions for an albuterol inhaler, Cepacol, Robitussin cough syrup, and 1 dexamethasone dosing because his pharmacy does not accept electronic; he will also take his hospital Combivent with him. In regards to his past medical history he has been counseled on continuing his medications at scheduled times and to be compliant. He has also been advised to follow-up with his PCP 1 to 2 weeks time to discuss his health concerns and/or possible medication reviews. The patient was also educated on returning to the hospital if he experienced increased respiratory difficulty, shortness of breath, chest pain, or palpitations. At this point of time the patient is stable and can be discharged. - Discharge Data Discharge Date: 09/09/21 Discharge Disposition: Home, Self-Care 01 Condition: Stable - Referral to Home Health Primary Care Physician: PCP None - Discharge Diagnosis/Problem(s) (1) CAD (coronary artery disease) SNOMED Code(s): 20935342 ICD Code: I25.10 - ATHSCL HEART DISEASE OF [place] CORONARY ARTERY W/O ANG PCTRS Status: Acute (2) Depression SNOMED Code(s): 69747310 ICD Code: F32.A - DEPRESSION, UNSPECIFIED Status: Acute (3) Respiratory failure with hypoxia SNOMED Code(s): 06368196309453507 ICD Code: J96.91 - RESPIRATORY FAILURE, UNSPECIFIED WITH HYPOXIA Status: Acute (4) COVID-19 SNOMED Code(s): 559635331 ICD Code: U07.1 - COVID-19 Status: Acute - Patient Summary/Data Consults: Consultations 08/31/21 21:47 PT Evaluation and Treatment [CONS] Routine - Patient Instructions Diet: Heart Healthy Diet Activity: As Tolerated Showering/Bathing: May Shower Other/Special Instructions: -Return to the hospital if you have respiratory difficulty, shortness of breath, chest pain, or palpitations. -Be compliant with your medications and take them at scheduled times. -Use oxygen at home whe n moving around and when sleeping. -Follow-up with your PCP in 1 to 2 weeks time - Discharge Plan Home Medications: Home Meds Asacol Hd Mesalamine 2 tab PO BID 08/31/21 [History] Aspirin [Vazalore] 81 mg PO DAILY 08/31/21 [History] Benzonatate 100 mg PO TID 08/31/21 [History] Clopidogrel [Plavix] 75 mg PO DAILY 08/31/21 [History] Ibuprofen 800 mg PO Q8HR PRN 08/31/21 [History] Levofloxacin [Levaquin] 500 mg PO DAILY 08/31/21 [History] Mirtazapine 30 mg PO BEDTIME 08/31/21 [History] Nitroglycerin [Nitrostat] 0.4 mg SL ASDIRECTED PRN 08/31/21 [History] Pantoprazole [ProTONIX] 40 mg PO DAILY 08/31/21 [History] Venlafaxine HCl [Venlafaxine ER] 75 mg PO QAM 08/31/21 [History] Venlafaxine [Effexor XR] 37.5 mg PO QPM 08/31/21 [History] atorvaSTATin [Lipitor] 40 mg PO BEDTIME 08/31/21 [History] buPROPion HCL [Bupropion HCl Sr] 150 mg PO BID 08/31/21 [History] carvediloL [Carvedilol] 6.25 mg PO BID 08/31/21 [History] lisinopriL [Lisinopril] 10 mg PO DAILY 08/31/21 [History] Albuterol/Ipratropium [Combivent Respimat] 0 gm INH Q4HRRT PRN inhaler 09/09/21 [Rx] Oxygen Therapy Mode: Nasal Cannula Oxygen Flow Rate (L/min): 3 (with exertion and at sleep) Patient Handouts: Ipratropium; Albuterol Inhalation [place] (Combivent Respimat), COVID-19 Frequently Asked Questions, COVID-19, COVID-19 Vaccine Information, Guaifenesin oral solution and syrup, Benzocaine Oral Lozenges, COVID-19: How to Protect Yourself and Others - [facility], Dexamethasone tablets Referrals: Lg Watson NP [Ordering Only Provider] - 09/17/21 11:00 am - Discharge Summary/Plan Comment DC Time >30 min.: Yes Total # of Minutes for Discharge Time: 35 minutes - Review of Systems General: Denies: Fever, Fatigue HEENT: Reports: Sore Throat. Denies: Headaches Pulmonary: Reports: Shortness of Breath, Cough Cardiovascular: Denies: Chest Pain, Palpitations Gastrointestinal: Denies: Abdominal Pain Genitourinary: Denies: Dysuria Neurological: Denies: Confusion, Dizziness - Patient Data Vitals - Most Recent: Last Vital Signs Temp 97.5 F 09/09/21 04:00 Pulse 78 09/09/21 04:00 Resp 18 09/09/21 04:00 BP 109/72 09/09/21 09:35 Pulse Ox 93 L 09/09/21 04:00 Weight - Most Recent: 100.108 kg I&O - Last 24 hours: Intake & Output 09/08/21 09/09/21 09/09/21 22:59 06:59 14:59 Intake Total 2900 1200 Balance 2900 1200 Lab Results - Last 24 hrs: Laboratory Results - last 24 hr 09/09/21 09/09/21 Range/Units 05:23 05:23 WBC 9.70 (4.0-11.0) K/uL RBC 4.97 (4.50-5.90) M/uL Hgb 12.5 L (13.0-17.0) g/dL Hct 38.5 (38.0-50.0) % MCV 77.5 L (80.0-98.0) fL MCH 25.2 L (27.0-32.0) pg MCHC 32.5 (31.0-37.0) g/dL RDW Std Deviation 49.4 (28.0-62.0) fl RDW Coeff of Juve 17 H (11.0-15.0) % Plt Count 432 H (150-400) K/uL MPV 10.20 (7.40-12.00) fL Neut % (Auto) 73.6 (48.0-80.0) % Lymph % (Auto) 14.3 L (16.0-40.0) % Pershing % (Auto) 10.5 (0.0-15.0) % Eos % (Auto) 1.6 (0.0-7.0) % Baso % (Auto) 0.0 (0.0-1.5) % Neut # (Auto) 7.1 H (1.4-5.7) K/uL Lymph # (Auto) 1.4 (0.6-2.4) K/uL Pershing # (Auto) 1.0 H (0.0-0.8) K/uL Eos # (Auto) 0.2 (0.0-0.7) K/uL Baso # (Auto) 0.0 (0.0-0.1) K/uL Nucleated RBC % 0.0 /100WBC Nucleated RBCs # 0 K/uL Sodium 135 L (136-148) mmol/L Potassium 4.5 (3.5-5.1) mmol/L Chloride 101 (98-107) mmol/L Carbon Dioxide 25.9 (21.0-32.0) mmol/L BUN 18 (7.0-18.0) mg/dL Creatinine 1.0 (0.8-1.3) mg/dL Est Cr Clr Drug Dosing 112.12 mL/min Estimated GFR (MDRD) > 60.0 ml/min Glucose 143 H (74-106) mg/dL Calcium 8.2 L (8.5-10.1) mg/dL Total Bilirubin 0.3 (0.2-1.0) mg/dL AST 43 H (15-37) IU/L ALT 214 H (14-63) IU/L Alkaline Phosphatase 163 H (46-116) U/L Total Protein 6.5 (6.4-8.2) g/dL Albumin 2.4 L (3.4-5.0) g/dL Globulin 4.1 H (2.6-4.0) g/dL Albumin/Globulin Ratio 0.6 L (0.9-1.6) Med Orders - Current: Current Medications Acetaminophen (Acetaminophen 325 Mg Tab) 650 mg PO Q4H PRN PRN Reason: Pain (Mild 1-3)/fever Albuterol/Ipratropium (Albuterol/Ipratropium 3.0-0.5 Mg/3 Ml Neb Soln) 3 ml NEB Q4HRRT PRN PRN Reason: Dyspnea Albuterol/Ipratropium (Albuterol/Ipratropium 4 Gm Inhalation [place]) 0 gm INH Q4HRRT PRN PRN Reason: Shortness of Breath Last Admin: 09/08/21 21:34 Dose: 1 puff Documented by: Aspirin (Aspirin 81 Mg Tab.Ec) 81 mg PO DAILY [facility] Last Admin: 09/09/21 09:30 Dose: 81 mg Documented by: Atorvastatin Calcium (Atorvastatin 40 Mg Tab) 40 mg PO BEDTIME [facility] Last Admin: 09/08/21 21:34 Dose: 40 mg Documented by: Baricitinib (Baricitinib 2 Mg Tab) 4 mg PO DAILY [facility] Last Admin: 09/09/21 09:28 Dose: 4 mg Documented by: Benzocaine/Menthol (Benzocaine/Cetylpyridinium/Menthol Lozenge) 1 lozenge MUCMEM Q6H PRN PRN Reason: Sore Throat Last Admin: 09/01/21 21:47 Dose: 1 lozenge Documented by: Benzonatate (Benzonatate 100 Mg Cap) 100 mg PO TID PRN PRN Reason: Cough Last Admin: 09/03/21 16:56 Dose: 100 mg Documented by: Bupropion HCl (Bupropion 150 Mg Tab.Sr) 150 mg PO BID [facility] Last Admin: 09/08/21 21:34 Dose: 150 mg Documented by: Clopidogrel Bisulfate (Clopidogrel 75 Mg Tab) 75 mg PO DAILY [facility] Last Admin: 09/09/21 09:30 Dose: 75 mg Documented by: Dexamethasone (Dexamethasone 4 Mg Tab) 6 mg PO DAILY [facility] Last Admin: 09/09/21 09:31 Dose: 6 mg Documented by: Enoxaparin Sodium (Enoxaparin 40 Mg/0.4 Ml Syringe) 40 mg SUBCUT Q24H [facility] Last Admin: 09/08/21 15:44 Dose: 40 mg Documented by: Guaifenesin (Guaifenesin 100 Mg/5 Ml Soln 5 Ml Ud Cup) 100 mg PO Q4H PRN PRN Reason: Cough Last Admin: 09/03/21 11:30 Dose: 100 mg Documented by: Lisinopril (Lisinopril 10 Mg Tab) 10 mg PO DAILY [facility] Last Admin: 09/09/21 09:35 Dose: 10 mg Documented by: Mirtazapine (Mirtazapine 15 Mg Tab) 30 mg PO BEDTIME [facility] Last Admin: 09/08/21 21:34 Dose: 30 mg Documented by: Ondansetron HCl (Ondansetron 4 Mg/2 Ml Sdv) 4 mg IVPUSH Q4H PRN PRN Reason: nausea and vomiting Pantoprazole Sodium (Pantoprazole 40 Mg Tab.Cr) 40 mg PO DAILY [facility] Last Admin: 09/09/21 09:31 Dose: 40 mg Documented by: Sodium Chloride (Sodium Chloride 0.9% 10 Ml Syringe) 10 ml FLUSH ASDIRECTED PRN PRN Reason: Keep Vein Open Last Admin: 08/31/21 09:49 Dose: 10 ml Documented by: Sodium Chloride (Sodium Chloride 0.9% 2.5 Ml Syringe) 2.5 ml FLUSH ASDIRECTED PRN PRN Reason: Keep Vein Open Last Admin: 08/31/21 09:49 Dose: 2.5 ml Documented by: Venlafaxine HCl (Venlafaxine 37.5 Mg Cap.Er) 37.5 mg PO DAILY [facility] Last Admin: 09/09/21 09:30 Dose: 37.5 mg Documented by: Discontinued Medications Albuterol/Ipratropium (Albuterol/Ipratropium 3.0-0.5 Mg/3 Ml Neb Soln) 6 ml NEB ONETIME ONE Stop: 08/31/21 09:39 Last Admin: 08/31/21 09:49 Dose: 6 ml Documented by: Albuterol/Ipratropium (Albuterol/Ipratropium 4 Gm Inhalation [place]) 0 gm INH Q4HRRT [facility] Last Admin: 09/07/21 14:25 Dose: Not Given Documented by: Albuterol/Ipratropium (Albuterol/Ipratropium 4 Gm Inhalation [place]) Confirm Administered Dose 4 gm INH .STK-MED ONE Stop: 08/31/21 23:03 Last Admin: 08/31/21 23:21 Dose: Not Given Documented by: Carbamide Perox/Anhydrous Glycerin (Carbamide Peroxide 6.5% Otic Soln 15 Ml Bottle) 1 ml EARRT BID RICHI Stop: 09/06/21 12:00 Last Admin: 09/06/21 09:31 Dose: 1 ml Documented by: Carvedilol (Carvedilol 6.25 Mg Tab) 6.25 mg PO BID RICHI Last Admin: 09/02/21 09:04 Dose: 6.25 mg Documented by: Dexamethasone (Dexamethasone 10 Mg/Ml Sdv) 10 mg IVPUSH ONETIME ONE Stop: 08/31/21 09:34 Last Admin: 08/31/21 09:49 Dose: 10 mg Documented by: Remdesivir 200 mg/ Sodium (Chloride) 250 mls @ 250 mls/hr IV ONETIME ONE Stop: 08/31/21 09:40 Last Admin: 08/31/21 10:18 Dose: Not Given Documented by: Remdesivir 200 mg/ Sodium (Chloride) 250 mls @ 250 mls/hr IV ONETIME ONE Stop: 08/31/21 10:59 Last Admin: 08/31/21 10:16 Dose: 250 mls/hr Documented by: Sodium Chloride (Normal Saline) 1,000 mls @ 10 mls/hr IV STAT STA Stop: 09/04/21 14:06 Last Admin: 08/31/21 10:08 Dose: 10 mls/hr Documented by: Remdesivir 100 mg/ Sodium (Chloride) 100 mls @ 100 mls/hr IV Q24H RICHI Stop: 09/04/21 09:59 Last Admin: 09/04/21 08:24 Dose: 100 mls/hr Documented by: Iopamidol (Iopamidol 755 Mg/Ml 500 Ml Multipack Bottle) 100 ml IVPUSH ONETIME ONE Stop: 08/31/21 12:18 Last Admin: 08/31/21 12:18 Dose: 100 ml Documented by: Lorazepam (Lorazepam 2 Mg/Ml Sdv) 0.5 mg IVPUSH ONETIME ONE Stop: 08/31/21 09:55 Last Admin: 08/31/21 10:05 Dose: 0.5 mg Documented by: Ondansetron HCl (Ondansetron 4 Mg/2 Ml Sdv) Confirm Administered Dose 4 mg .ROUTE .STK-MED ONE Stop: 08/31/21 09:46 Last Admin: 08/31/21 09:48 Dose: Not Given Documented by: Ondansetron HCl (Ondansetron 4 Mg/2 Ml Sdv) 4 mg IVPUSH ONETIME ONE Stop: 08/31/21 09:50 Last Admin: 08/31/21 09:50 Dose: 4 mg Documented by: - Exam General: Reports: Alert, Oriented, Cooperative HEENT: Reports: Mucous Membr. Moist/[place]ck: Denies: Lymphadenopathy Lungs: Reports: Clear to Auscultation, Normal Respiratory Effort Cardiovascular: Reports: Regular Rate, Regular Rhythm, No Murmurs GI/Abdominal Exam: Normal Bowel Sounds, Soft, Non-Tender, No Organomegaly Extremities: No Pedal Edema <Wes Dorsey - Last Filed: 09/09/21 16:40> Discharge Summary - Hospital Course Free Text/Narrative:: I have seen and evaluated the patient and agree with the residents note unless specified in my note - Referral to Home Health Primary Care Physician: PCP None - Discharge Diagnosis/Problem(s) (1) Pneumonia due to COVID-19 virus SNOMED Code(s): 501500913298261192 ICD Code: U07.1 - COVID-19; J12.82 - PNEUMONIA DUE TO CORONAVIRUS DISEASE 2019 Status: Acute (2) Respiratory failure with hypoxia SNOMED Code(s): 18382053299106826 ICD Code: J96.91 - RESPIRATORY FAILURE, UNSPECIFIED WITH HYPOXIA Status: Acute (3) COVID-19 SNOMED Code(s): 771008578 ICD Code: U07.1 - COVID-19 Status: Acute (4) History of CVA (cerebrovascular accident) SNOMED Code(s): 438698953 ICD Code: Z86.73 - PRSNL HX OF TIA (TIA), AND CEREB INFRC W/O RESID DEFICITS Status: Acute (5) History of OR (myocardial infarction) SNOMED Code(s): 297930681 ICD Code: I25.2 - OLD MYOCARDIAL INFARCTION Status: Acute - Patient Summary/Data Consults: Consultations 08/31/21 21:47 PT Evaluation and Treatment [CONS] Routine - Patient Data Vitals - Most Recent: Last Vital Signs Temp 36.6 C 09/09/21 12:00 Pulse 78 09/09/21 12:00 Resp 16 09/09/21 12:00 BP 114/71 09/09/21 12:00 Pulse Ox 92 L 09/09/21 12:00 I&O - Last 24 hours: Intake & Output 09/09/21 09/09/21 09/09/21 06:59 14:59 22:59 Intake Total 1200 Balance 1200 Lab Results - Last 24 hrs: Laboratory Results - last 24 hr 09/09/21 09/09/21 Range/Units 05:23 05:23 WBC 9.70 (4.0-11.0) K/uL RBC 4.97 (4.50-5.90) M/uL Hgb 12.5 L (13.0-17.0) g/dL Hct 38.5 (38.0-50.0) % MCV 77.5 L (80.0-98.0) fL MCH 25.2 L (27.0-32.0) pg MCHC 32.5 (31.0-37.0) g/dL RDW Std Deviation 49.4 (28.0-62.0) fl RDW Coeff of Juve 17 H (11.0-15.0) % Plt Count 432 H (150-400) K/uL MPV 10.20 (7.40-12.00) fL Neut % (Auto) 73.6 (48.0-80.0) % Lymph % (Auto) 14.3 L (16.0-40.0) % Pershing % (Auto) 10.5 (0.0-15.0) % Eos % (Auto) 1.6 (0.0-7.0) % Baso % (Auto) 0.0 (0.0-1.5) % Neut # (Auto) 7.1 H (1.4-5.7) K/uL Lymph # (Auto) 1.4 (0.6-2.4) K/uL [place]hing # (Auto) 1.0 H (0.0-0.8) K/uL Eos # (Auto) 0.2 (0.0-0.7) K/uL Baso # (Auto) 0.0 (0.0-0.1) K/uL Nucleated RBC % 0.0 /100WBC Nucleated RBCs # 0 K/uL Sodium 135 L (136-148) mmol/L Potassium 4.5 (3.5-5.1) mmol/L Chloride 101 (98-107) mmol/L Carbon Dioxide 25.9 (21.0-32.0) mmol/L BUN 18 (7.0-18.0) mg/dL Creatinine 1.0 (0.8-1.3) mg/dL Est Cr Clr Drug Dosing 112.12 mL/min Estimated GFR (MDRD) > 60.0 ml/min Glucose 143 H (74-106) mg/dL Calcium 8.2 L (8.5-10.1) mg/dL Total Bilirubin 0.3 (0.2-1.0) mg/dL AST 43 H (15-37) IU/L ALT 214 H (14-63) IU/L Alkaline Phosphatase 163 H (46-116) U/L Total Protein 6.5 (6.4-8.2) g/dL Albumin 2.4 L (3.4-5.0) g/dL Globulin 4.1 H (2.6-4.0) g/dL Albumin/Globulin Ratio 0.6 L (0.9-1.6) Med Orders - Current: Current Medications Discontinued Medications Acetaminophen (Acetaminophen 325 Mg Tab) 650 mg PO Q4H PRN PRN Reason: Pain (Mild 1-3)/fever Albuterol/Ipratropium (Albuterol/Ipratropium 3.0-0.5 Mg/3 Ml Neb Soln) 6 ml NEB ONETIME ONE Stop: 08/31/21 09:39 Last Admin: 08/31/21 09:49 Dose: 6 ml Documented by: Albuterol/Ipratropium (Albuterol/Ipratropium 4 Gm Inhalation [place]) 0 gm INH Q4HRRT [facility] Last Admin: 09/07/21 14:25 Dose: Not Given Documented by: Albuterol/Ipratropium (Albuterol/Ipratropium 3.0-0.5 Mg/3 Ml Neb Soln) 3 ml NEB Q4HRRT PRN PRN Reason: Dyspnea Albuterol/Ipratropium (Albuterol/Ipratropium 4 Gm Inhalation [place]) Confirm Administered Dose 4 gm INH .STK-MED ONE Stop: 08/31/21 23:03 Last Admin: 08/31/21 23:21 Dose: Not Given Documented by: Albuterol/Ipratropium (Albuterol/Ipratropium 4 Gm Inhalation [place]) 0 gm INH Q4HRRT PRN PRN Reason: Shortness of Breath Last Admin: 09/08/21 21:34 Dose: 1 puff Documented by: Aspirin (Aspirin 81 Mg Tab.Ec) 81 mg PO DAILY [facility] Last Admin: 09/09/21 09:30 Dose: 81 mg Documented by: Atorvastatin Calcium (Atorvastatin 40 Mg Tab) 40 mg PO BEDTIME [facility] Last Admin: 09/08/21 21:34 Dose: 40 mg Documented by: Baricitinib (Baricitinib 2 Mg Tab) 4 mg PO DAILY [facility] Last Admin: 09/09/21 09:28 Dose: 4 mg Documented by: Benzocaine/Menthol (Benzocaine/Cetylpyridinium/Menthol Lozenge) 1 lozenge MUCMEM Q6H PRN PRN Reason: Sore Throat Last Admin: 09/01/21 21:47 Dose: 1 lozenge Documented by: Benzonatate (Benzonatate 100 Mg Cap) 100 mg PO TID PRN PRN Reason: Cough Last Admin: 09/03/21 16:56 Dose: 100 mg Documented by: Bupropion HCl (Bupropion 150 Mg Tab.Sr) 150 mg PO BID [facility] Last Admin: 09/09/21 09:31 Dose: 150 mg Documented by: Carbamide Perox/Anhydrous Glycerin (Carbamide Peroxide 6.5% Otic Soln 15 Ml Bottle) 1 ml EARRT BID [facility] Stop: 09/06/21 12:00 Last Admin: 09/06/21 09:31 Dose: 1 ml Documented by: Carvedilol (Carvedilol 6.25 Mg Tab) 6.25 mg PO BID [facility] Last Admin: 09/02/21 09:04 Dose: 6.25 mg Documented by: Clopidogrel Bisulfate (Clopidogrel 75 Mg Tab) 75 mg PO DAILY [facility] Last Admin: 09/09/21 09:30 Dose: 75 mg Documented by: Dexamethasone (Dexamethasone 10 Mg/Ml Sdv) 10 mg IVPUSH ONETIME ONE Stop: 08/31/21 09:34 Last Admin: 08/31/21 09:49 Dose: 10 mg Documented by: Dexamethasone (Dexamethasone 4 Mg Tab) 6 mg PO DAILY [facility] Last Admin: 09/09/21 09:31 Dose: 6 mg Documented by: Enoxaparin Sodium (Enoxaparin 40 Mg/0.4 Ml Syringe) 40 mg SUBCUT Q24H [facility] Last Admin: 09/08/21 15:44 Dose: 40 mg Documented by: Guaifenesin (Guaifenesin 100 Mg/5 Ml Soln 5 Ml Ud Cup) 100 mg PO Q4H PRN PRN Reason: Cough Last Admin: 09/03/21 11:30 Dose: 100 mg Documented by: Remdesivir 200 mg/ Sodium (Chloride) 250 mls @ 250 mls/hr IV ONETIME ONE Stop: 08/31/21 09:40 Last Admin: 08/31/21 10:18 Dose: Not Given Documented by: Remdesivir 200 mg/ Sodium (Chloride) 250 mls @ 250 mls/hr IV ONETIME ONE Stop: 08/31/21 10:59 Last Admin: 08/31/21 10:16 Dose: 250 mls/hr Documented by: Sodium Chloride (Normal Saline) 1,000 mls @ 10 mls/hr IV STAT STA Stop: 09/04/21 14:06 Last Admin: 08/31/21 10:08 Dose: 10 mls/hr Documented by: Remdesivir 100 mg/ Sodium (Chloride) 100 mls @ 100 mls/hr IV Q24H RICHI Stop: 09/04/21 09:59 Last Admin: 09/04/21 08:24 Dose: 100 mls/hr Documented by: Iopamidol (Iopamidol 755 Mg/Ml 500 Ml Multipack Bottle) 100 ml IVPUSH ONETIME ONE Stop: 08/31/21 12:18 Last Admin: 08/31/21 12:18 Dose: 100 ml Documented by: Lisinopril (Lisinopril 10 Mg Tab) 10 mg PO DAILY [facility] Last Admin: 09/09/21 09:35 Dose: 10 mg Documented by: Lorazepam (Lorazepam 2 Mg/Ml Sdv) 0.5 mg IVPUSH ONETIME ONE Stop: 08/31/21 09:55 Last Admin: 08/31/21 10:05 Dose: 0.5 mg Documented by: Mirtazapine (Mirtazapine 15 Mg Tab) 30 mg PO BEDTIME [facility] Last Admin: 09/08/21 21:34 Dose: 30 mg Documented by: Ondansetron HCl (Ondansetron 4 Mg/2 Ml Sdv) Confirm Administered Dose 4 mg .ROUTE .STK-MED ONE Stop: 08/31/21 09:46 Last Admin: 08/31/21 09:48 Dose: Not Given Documented by: Ondansetron HCl (Ondansetron 4 Mg/2 Ml Sdv) 4 mg IVPUSH ONETIME ONE Stop: 08/31/21 09:50 Last Admin: 08/31/21 09:50 Dose: 4 mg Documented by: Ondansetron HCl (Ondansetron 4 Mg/2 Ml Sdv) 4 mg IVPUSH Q4H PRN PRN Reason: nausea and vomiting Pantoprazole Sodium (Pantoprazole 40 Mg Tab.Cr) 40 mg PO DAILY [facility] Last Admin: 09/09/21 09:31 Dose: 40 mg Documented by: Sodium Chloride (Sodium Chloride 0.9% 10 Ml Syringe) 10 ml FLUSH ASDIRECTED PRN PRN Reason: Keep Vein Open Last Admin: 08/31/21 09:49 Dose: 10 ml Documented by: Sodium Chloride (Sodium Chloride 0.9% 2.5 Ml Syringe) 2.5 ml FLUSH ASDIRECTED PRN PRN Reason: Keep Vein Open Last Admin: 08/31/21 09:49 Dose: 2.5 ml Documented by: Venlafaxine HCl (Venlafaxine 37.5 Mg Cap.Er) 37.5 mg PO DAILY [facility] Last Admin: 09/09/21 09:30 Dose: 37.5 mg Documented by:
== END 2021-09-09 13:30 | disposition home or self-care (01) | DRG 177 ==
LOC: MW.ED 09:24 → MW.ICU 13:27 → MW.MS 09-07 11:17
PROVIDERS: ADMIT Internal Medicine; ATTEND Internal Medicine
PROC: XW033E5 Introduction of Remdesivir Anti-infective into Peripheral Vein, Percutaneous Approach, New Technology Group 5 (ICD-10-PCS; principal; 2021-08-31)
PROC: XW0DXM6 Introduction of Baricitinib into Mouth and Pharynx, External Approach, New Technology Group 6 (ICD-10-PCS; 2021-08-31)
PROC: 3E0333Z Introduction of Anti-inflammatory into Peripheral Vein, Percutaneous Approach (ICD-10-PCS; 2021-08-31)
PROC: 5A0955A Assistance with Respiratory Ventilation, Greater than 96 Consecutive Hours, High Flow/Velocity Cannula (ICD-10-PCS; 2021-08-31)
PROC: 3E0DX3Z Introduction of Anti-inflammatory into Mouth and Pharynx, External Approach (ICD-10-PCS; 2021-09-09)
DX: U07.1 COVID-19 (principal); J12.82 Pneumonia due to coronavirus disease 2019; J96.01 Acute respiratory failure with hypoxia; I25.10 Atherosclerotic heart disease of native coronary artery without angina pectoris; F32.A Depression, unspecified; H54.7 Unspecified visual loss; E78.00 Pure hypercholesterolemia, unspecified; I10 Essential (primary) hypertension; K21.9 Gastro-esophageal reflux disease without esophagitis; M19.90 Unspecified osteoarthritis, unspecified site; M54.50 Low back pain, unspecified; G89.29 Other chronic pain; F90.9 Attention-deficit hyperactivity disorder, unspecified type; Z86.16 Personal history of COVID-19; Z79.82 Long term (current) use of aspirin; Z79.02 Long term (current) use of antithrombotics/antiplatelets; Z79.899 Other long term (current) drug therapy; Z86.73 Personal history of transient ischemic attack (TIA), and cerebral infarction without residual deficits; I25.2 Old myocardial infarction; Z88.2 Allergy status to sulfonamides
CPT/HCPCS: 36415; 71045; 71045-26; 71275; 71275-26; 80053; 81001; 82248; 82803; 83605; 83690; 83880; 84484; 85025; 85027; 85379; 85610; 85730; 86140; 87040; 87651-QW; 93005; 94640; 94660; 96374; 96375; 97110-GP; 97161-GP; 97530-GP; 99285-25; 99291; A9270-GY; J1100; J1650; J2060; J2405; J7030; J7050; J7620-GY; J8540; Q9967

== ENCOUNTER 2023-12-29 02:20 | Emergency (ER) | payer SELFPAY ==
[2023-12-29] MEDS: Morphine 4 MG/ML Syringe IVPUSH ONE (02:36)
[2023-12-29] MEDS: Aspirin 81 MG Tab.Chew PO ONE (02:36)
[2023-12-29] MEDS: Ondansetron 4 MG/2 ML SDV IVPUSH ONE (02:37)
[2023-12-29] MEDS: Sodium Chloride 0.9% 500 ML IV SCH (02:39)
[2023-12-29] MEDS: Acetaminophen 500 MG Tab PO ONE (02:39)
[2023-12-29] MEDS: Sodium Chloride 0.9% 2.5 ML Syringe FLUSH PRN (02:39)
[2023-12-29] MEDS: Sodium Chloride 0.9% 10 ML Syringe FLUSH PRN (02:40)
[2023-12-29 02:43] LABS: HEMATOCRIT 41.4 % (42.0-52.0); HEMOGLOBIN 13.2 g/dL (14.0-18.0); MEAN CORPUSCULAR HEMOGLOBIN 25.5 pg (28.0-32.0); MEAN CORPUSCULAR HGB CONC 31.9 g/dL (32.0-36.0); MEAN CORPUSCULAR VOLUME 80.1 fL (83.0-99.0); MEAN PLATELET VOLUME 9.8 fL (9.4-12.4); PLATELET COUNT,PLT 176 K/uL (150-400); RED BLOOD CELL COUNT 5.17 M/uL (4.52-5.90); WHITE BLOOD CELL COUNT,WBC 6.95 K/uL (3.9-11.3)
[2023-12-29] MEDS: cefTRIAXone 1 GM in Sodium Chloride 0.9% 50 ML IV ONE (02:57)
[2023-12-29] MEDS: Doxycycline 100 MG Cap PO ONE (02:58)
[2023-12-29] MEDS: Albuterol/Ipratropium 3.0-0.5 MG/3 ML Neb Soln NEB ONE (02:58)
[2023-12-29 03:11] LABS: D-DIMER QUANTITATIVE 0.75 mg/L FEU (0.00-0.50); INR 1.11 (0.86-1.11); PTT,PARTIAL THROMBOPLSTIN TIME 26.4 SEC (23.9-30.7)
[2023-12-29 03:12] LABS: LACTIC ACID 1.4 mmol/L (0.4-2.0)
[2023-12-29 03:18] LABS: A/G RATIO 0.7 (0.9-1.6); ALBUMIN 2.9 g/dL (3.4-5.0); BILIRUBIN TOTAL 0.5 mg/dL (0.2-1.0); CALCIUM 8.1 mg/dL (8.5-10.1); CARBON DIOXIDE,CO2 25.6 mmol/L (21.0-32.0); CREATININE 1.7 mg/dL (0.8-1.3); EST CRCL DRUG DOSING (CG) 57.06 mL/min; POTASSIUM,K 3.7 mmol/L (3.5-5.1)
[2023-12-29 03:34] LABS: BAND PERCENT MAN 10 %; LYMPHOCYTES ABSOLUTE MAN 1.04 K/uL (1.00-4.80); LYMPHOCYTES PERCENT MAN 15 % (24-44); MONOCYTES PERCENT MAN 10 % (0-8); SEG NEUTROPHILS ABSOLUTE MAN 4.52 K/uL (1.80-7.70); SEG NEUTROPHILS PERCENT MAN 65 % (41-71)
[2023-12-29 03:37] LABS: CORONAVIRUS COVID-19 NAA NEGATIVE (NEGATIVE); INFLUENZA A NAA NEGATIVE (NEGATIVE); INFLUENZA B NAA NEGATIVE (NEGATIVE); RESPIRATORY SYNCYTIAL VIR NAA NEGATIVE (NEGATIVE)
[2023-12-29] MEDS: Sodium Chloride 0.9% 1,000 ML IV ONE (03:45)
[2023-12-29] MEDS: Ibuprofen 400 MG Tab PO ONE (03:54)
== END 2023-12-29 04:39 | disposition home or self-care (01) ==
LOC: MW.ED 02:20
DX: J18.9 Pneumonia, unspecified organism (principal); N28.9 Disorder of kidney and ureter, unspecified; I10 Essential (primary) hypertension; I25.2 Old myocardial infarction; K21.9 Gastro-esophageal reflux disease without esophagitis; E78.00 Pure hypercholesterolemia, unspecified; Z86.16 Personal history of COVID-19; Z88.2 Allergy status to sulfonamides; Z79.82 Long term (current) use of aspirin; Z79.899 Other long term (current) drug therapy
CPT/HCPCS: 0241U; 36415; 71045; 80053; 83605; 83880; 84484; 85025; 85379; 85610; 85730; 87040; 96361; 96365; 96375; 99285; A9270; J0696; J2270; J2405; J3490; J7030; J7040; 93010; 99284; J7620-GY

== ENCOUNTER 2023-12-29 17:42 | Inpatient (IN) | payer SELFPAY ==
[2023-12-29] MEDS: Sodium Chloride 0.9% 2.5 ML Syringe FLUSH PRN (18:01)
[2023-12-29] MEDS: Sodium Chloride 0.9% 10 ML Syringe FLUSH PRN (18:01)
[2023-12-29] MEDS: Sodium Chloride 0.9% 1,000 ML IV ONE (18:01)
[2023-12-29 18:08] LABS: BASE EXCESS VENOUS -4.3 (-2.0-3.0); BICARBONATE,VENOUS 22 mEq/L (23-28); PCO2 VENOUS 42 mmHG (41-51); PH,VENOUS 7.32 (7.31-7.41)
[2023-12-29 18:10] LABS: PO2 VENOUS < 30 mmHG
[2023-12-29] MEDS: Sodium Chloride 0.9% 1,000 ML IV STA (18:17)
[2023-12-29] MEDS: Azithromycin 500 MG in Sodium Chloride 0.9% 250 ML IV ONE (18:17)
[2023-12-29 18:19] LABS: HEMATOCRIT 34.3 % (42.0-52.0); MEAN CORPUSCULAR HEMOGLOBIN 26.2 pg (28.0-32.0); MEAN CORPUSCULAR HGB CONC 32.1 g/dL (32.0-36.0); MEAN CORPUSCULAR VOLUME 81.7 fL (83.0-99.0); PLATELET COUNT,PLT 161 K/uL (150-400); WHITE BLOOD CELL COUNT,WBC 16.57 K/uL (3.9-11.3)
[2023-12-29 18:36] LABS: LACTIC ACID 1.7 mmol/L (0.4-2.0)
[2023-12-29 18:48] LABS: APPEARANCE,URINE CLEAR; BILIRUBIN,URINE NEGATIVE (NEGATIVE); COLOR,URINE YELLOW; GLUCOSE,URINE NEGATIVE (NEGATIVE); KETONES,URINE NEGATIVE (NEGATIVE); LEUKOCYTE ESTERASE,URINE NEGATIVE (NEGATIVE); NITRITE,URINE NEGATIVE (NEGATIVE); OCCULT BLOOD,URINE NEGATIVE (NEGATIVE); PH,URINE 5.5 (5.0-8.0); PROTEIN,URINE NEGATIVE (NEGATIVE)
[2023-12-29] MEDS: VANCOmycin 2 GM/400 ML 2 GM in Premix Bag 1 BAG IV ONE (19:06)
[2023-12-29 19:17] LABS: BAND PERCENT MAN 35 %; LYMPHOCYTES ABSOLUTE MAN 2.82 K/uL (1.00-4.80); LYMPHOCYTES PERCENT MAN 17 % (24-44); MONOCYTES ABSOLUTE MAN 1.99 K/uL (0.00-0.80); MONOCYTES PERCENT MAN 12 % (0-8); SEG NEUTROPHILS ABSOLUTE MAN 5.97 K/uL (1.80-7.70); SEG NEUTROPHILS PERCENT MAN 36 % (41-71)
[2023-12-29] MEDS: fentaNYL 100 MCG/2 ML SDV IVPUSH ONE (20:11)
[2023-12-29] MEDS: Sodium Chloride 0.9% 1,000 ML IV SCH (20:21)
[2023-12-29 21:23] LABS: A/G RATIO 0.6 (0.9-1.6); ALBUMIN 2.1 g/dL (3.4-5.0); BILIRUBIN TOTAL 0.4 mg/dL (0.2-1.0); CARBON DIOXIDE,CO2 21.3 mmol/L (21.0-32.0); CREATININE 1.6 mg/dL (0.8-1.3); EST CRCL DRUG DOSING (CG) 60.63 mL/min; MAGNESIUM 1.2 mg/dL (1.8-2.4); POTASSIUM,K 4.1 mmol/L (3.5-5.1); PROTEIN TOTAL,TP 5.7 g/dL (6.4-8.2)
[2023-12-29] MEDS: Albuterol/Ipratropium 3.0-0.5 MG/3 ML Neb Soln NEB ONE (21:38)
[2023-12-29] MEDS ORDERED: Sodium Chloride 0.9% 1,000 ML IV SCH (22:45)
[2023-12-29] MEDS: Piperacillin/Tazobactam 4.5 GM in Sodium Chloride 0.9% 100 ML IV SCH (23:35)
[2023-12-29] MEDS: Sodium Chloride 0.9% 100 ML ONE (23:37)
[2023-12-30] MEDS ORDERED: oxyCODONE 5 MG Tab PO PRN (00:04)
[2023-12-30] MEDS: guaiFENesin/Dextromethorphan 100-10 MG/5 ML Soln 10 ML Cup PO PRN (00:31)
[2023-12-30] MEDS: Morphine 2 MG/ML SYRINGE IVPUSH PRN ×2 (00:32→08:40)
[2023-12-30] MEDS: Albuterol/Ipratropium 3.0-0.5 MG/3 ML Neb Soln NEB PRN (00:40)
[2023-12-30] MEDS: Acetaminophen 325 MG Tab PO PRN ×2 (00:53→10:46)
[2023-12-30] MEDS: Acetaminophen 325 MG Tab ONE (00:56)
[2023-12-30] MEDS: Heparin Sodium 5,000 Units/ML Vial SUBCUT SCH (01:52)
[2023-12-30] MEDS: Iopamidol 755 MG/ML 500 ML Multipack Bottle IVPUSH STA (03:09)
[2023-12-30] MEDS: Benzonatate 100 MG Cap PO PRN ×2 (04:35→16:10)
[2023-12-30] MEDS: Acetaminophen/Codeine 300-30 MG Tab PO PRN (04:35)
[2023-12-30] MEDS: Sodium Chloride 0.9% 100 ML ONE (04:59)
[2023-12-30] MEDS: Azithromycin 500 MG Vial ONE (05:00)
[2023-12-30] MEDS: Sodium Chloride 0.9% 250 ML ONE (05:00)
[2023-12-30] MEDS: Vancomycin 1 GM SDV ONE (05:18)
[2023-12-30 05:24] LABS: HEMATOCRIT 33.4 % (42.0-52.0); HEMOGLOBIN 10.9 g/dL (14.0-18.0); MEAN CORPUSCULAR HEMOGLOBIN 26.9 pg (28.0-32.0); MEAN CORPUSCULAR HGB CONC 32.6 g/dL (32.0-36.0); MEAN CORPUSCULAR VOLUME 82.5 fL (83.0-99.0); MEAN PLATELET VOLUME 10.5 fL (9.4-12.4); PLATELET COUNT,PLT 171 K/uL (150-400); RED BLOOD CELL COUNT 4.05 M/uL (4.52-5.90); WHITE BLOOD CELL COUNT,WBC 22.41 K/uL (3.9-11.3)
[2023-12-30 05:45] LABS: BAND ABSOLUTE MAN 3.14; BAND PERCENT MAN 14 %; LYMPHOCYTES ABSOLUTE MAN 2.24 K/uL (1.00-4.80); LYMPHOCYTES PERCENT MAN 10 % (24-44); MONOCYTES ABSOLUTE MAN 1.12 K/uL (0.00-0.80); MONOCYTES PERCENT MAN 5 % (0-8); SEG NEUTROPHILS ABSOLUTE MAN 15.91 K/uL (1.80-7.70); SEG NEUTROPHILS PERCENT MAN 71 % (41-71)
[2023-12-30 05:46] LABS: CALCIUM 7.5 mg/dL (8.5-10.1); CARBON DIOXIDE,CO2 21.2 mmol/L (21.0-32.0); CREATININE 1.3 mg/dL (0.8-1.3); EST CRCL DRUG DOSING (CG) 74.62 mL/min; MAGNESIUM 1.4 mg/dL (1.8-2.4); POTASSIUM,K 3.4 mmol/L (3.5-5.1)
[2023-12-30] MEDS ORDERED: Piperacillin/Tazobactam 4.5 GM in Sodium Chloride 0.9% 100 ML IV SCH (07:00)
[2023-12-30] MEDS: Potassium Chloride 20 MEQ Tab.ER PO ONE (07:40)
[2023-12-30] MEDS: Pantoprazole 40 MG Tab.CR PO SCH (07:41)
[2023-12-30] MEDS: Magnesium Sulfate/Water 4 GM in Premix Bag 1 BAG IV ONE (07:42)
[2023-12-30] MEDS: Furosemide 20 MG/2 ML VIAL IVPUSH ONE (08:16)
[2023-12-30] MEDS: Piperacillin/Tazobactam 4.5 GM in Sodium Chloride 0.9% 100 ML IV SCH (08:32)
[2023-12-30] MEDS ORDERED: Azithromycin 500 MG in Sodium Chloride 0.9% 250 ML IV SCH (09:00)
[2023-12-30 09:25] LABS: HEMOGLOBIN A1C 6.1 %
[2023-12-30] MEDS: Azithromycin 500 MG in Sodium Chloride 0.9% 250 ML IV SCH (17:10)
[2023-12-30] MEDS ORDERED: Nitroglycerin 0.4 MG Tab.SL SL PRN (18:14)
[2023-12-30] MEDS: Venlafaxine 37.5 MG Cap.ER PO SCH (18:24)
[2023-12-30] MEDS: Montelukast 10 MG Tab PO SCH (20:12)
[2023-12-30] MEDS: buPROPion 150 MG Tab.SR PO SCH (20:12)
[2023-12-30] MEDS: Mirtazapine 15 MG Tab PO SCH (20:12)
[2023-12-30] MEDS: Gabapentin 300 MG Cap PO SCH (20:12)
[2023-12-30] MEDS: Carvedilol 6.25 MG Tab PO SCH (20:13)
[2023-12-30] MEDS: Ferrous Sulfate 325 MG Tab PO SCH (20:13)
[2023-12-30] MEDS: atorvaSTATin 40 MG Tab PO SCH (20:13)
[2023-12-30] MEDS: [UNRECOGNIZED DRUG - OTHER] PO SCH (20:16)
[2023-12-30] MEDS: MESALAMINE PO SCH (20:16)
[2023-12-31 05:40] LABS: HEMATOCRIT 32.9 % (42.0-52.0); HEMOGLOBIN 10.7 g/dL (14.0-18.0); MEAN CORPUSCULAR HEMOGLOBIN 26.2 pg (28.0-32.0); MEAN CORPUSCULAR HGB CONC 32.5 g/dL (32.0-36.0); MEAN CORPUSCULAR VOLUME 80.6 fL (83.0-99.0); MEAN PLATELET VOLUME 10.1 fL (9.4-12.4); PLATELET COUNT,PLT 185 K/uL (150-400); RED BLOOD CELL COUNT 4.08 M/uL (4.52-5.90); WHITE BLOOD CELL COUNT,WBC 18.57 K/uL (3.9-11.3)
[2023-12-31 06:04] LABS: BAND ABSOLUTE MAN 1.67; BAND PERCENT MAN 9 %; LYMPHOCYTES ABSOLUTE MAN 0.93 K/uL (1.00-4.80); LYMPHOCYTES PERCENT MAN 5 % (24-44); MONOCYTES ABSOLUTE MAN 0.74 K/uL (0.00-0.80); MONOCYTES PERCENT MAN 4 % (0-8); SEG NEUTROPHILS ABSOLUTE MAN 15.23 K/uL (1.80-7.70); SEG NEUTROPHILS PERCENT MAN 82 % (41-71)
[2023-12-31 06:14] LABS: A/G RATIO 0.5 (0.9-1.6); ALBUMIN 2.1 g/dL (3.4-5.0); BILIRUBIN TOTAL 0.5 mg/dL (0.2-1.0); CALCIUM 8.1 mg/dL (8.5-10.1); CARBON DIOXIDE,CO2 23.2 mmol/L (21.0-32.0); CREATININE 1.1 mg/dL (0.8-1.3); EST CRCL DRUG DOSING (CG) 88.18 mL/min; MAGNESIUM 2.1 mg/dL (1.8-2.4); POTASSIUM,K 3.4 mmol/L (3.5-5.1); PROTEIN TOTAL,TP 6.2 g/dL (6.4-8.2)
[2023-12-31] MEDS: Potassium Chloride 20 MEQ Tab.ER PO ONE ×2 (07:42→08:47)
[2023-12-31] MEDS: Venlafaxine 75 MG Cap.ER PO SCH (08:31)
[2023-12-31] MEDS: Lisinopril 10 MG Tab PO SCH (08:31)
[2023-12-31] MEDS: Clopidogrel 75 MG Tab PO SCH (08:31)
[2023-12-31] MEDS: Meloxicam 7.5 MG Tab PO SCH (08:31)
[2023-12-31] MEDS: Codeine/guaiFENesin 10-100 MG/5 ML Syrup 5 ML Cup PO PRN (08:46)
[2023-12-31] MEDS ORDERED: Pantoprazole 40 MG Tab.CR PO SCH (09:00)
[2023-12-31] MEDS: Furosemide 20 MG/2 ML VIAL IVPUSH ONE (11:01)
[2023-12-31] MEDS: Venlafaxine 37.5 MG Cap.ER PO SCH (13:02)
[2023-12-31] MEDS: VANCOmycin 2 GM/400 ML 2 GM in Premix Bag 1 BAG IV SCH (19:14)
[2023-12-31] MEDS: MESALAMINE 800 MG PO SCH (20:23)
[2024-01-01 06:08] LABS: BASOPHILS ABSOLUTE AUTO 0.03 K/uL (0.00-0.20); BASOPHILS PERCENT AUTO 0.3 % (0.0-1.0); EOSINOPHILS ABSOLUTE AUTO 0.06 K/uL (0.00-0.45); EOSINOPHILS PERCENT AUTO 0.5 % (0.0-6.0); HEMATOCRIT 35.7 % (42.0-52.0); HEMOGLOBIN 11.7 g/dL (14.0-18.0); IMMATURE GRAN ABSOLUTE AUTO 0.02 K/uL (0.00-0.05); IMMATURE GRAN PERCENT AUTO 0.2 % (0.0-0.4); LYMPHOCYTES ABSOLUTE AUTO 1.38 K/uL (1.00-4.80); LYMPHOCYTES PERCENT AUTO 11.8 % (24.0-44.0); MEAN CORPUSCULAR HGB CONC 32.8 g/dL (32.0-36.0); MEAN CORPUSCULAR VOLUME 79.3 fL (83.0-99.0); MEAN PLATELET VOLUME 10.2 fL (9.4-12.4); MONOCYTES ABSOLUTE AUTO 0.76 K/uL (0.00-0.80); MONOCYTES PERCENT AUTO 6.5 % (0.0-8.0); NEUTROPHILS ABSOLUTE AUTO 9.41 K/uL (1.80-7.70); NEUTROPHILS PERCENT AUTO 80.7 % (41.0-71.0); PLATELET COUNT,PLT 215 K/uL (150-400); WHITE BLOOD CELL COUNT,WBC 11.66 K/uL (3.9-11.3)
[2024-01-01 06:27] LABS: CALCIUM 8.6 mg/dL (8.5-10.1); CARBON DIOXIDE,CO2 22.6 mmol/L (21.0-32.0); CREATININE 1.2 mg/dL (0.8-1.3); EST CRCL DRUG DOSING (CG) 80.83 mL/min; MAGNESIUM 1.8 mg/dL (1.8-2.4); POTASSIUM,K 3.5 mmol/L (3.5-5.1)
[2024-01-01] MEDS ORDERED: VANCOmycin 1.75 GM/350 ML 1.75 GM in Premix Bag 1 BAG IV SCH (19:00)
== END 2024-01-01 12:30 | disposition home or self-care (01) | DRG 193 ==
LOC: MW.ED 17:42 → EEVIPCON 22:30 → MW.ICU 22:30 → MW.MS 12-31 16:21
PROVIDERS: ADMIT Family Medicine; ATTEND Family Medicine
DX: J18.9 Pneumonia, unspecified organism (principal); J96.01 Acute respiratory failure with hypoxia; N28.9 Disorder of kidney and ureter, unspecified; I95.9 Hypotension, unspecified; I25.10 Atherosclerotic heart disease of native coronary artery without angina pectoris; E78.00 Pure hypercholesterolemia, unspecified; K21.9 Gastro-esophageal reflux disease without esophagitis; M19.90 Unspecified osteoarthritis, unspecified site; G89.29 Other chronic pain; I11.0 Hypertensive heart disease with heart failure; I50.9 Heart failure, unspecified; M54.9 Dorsalgia, unspecified; F90.9 Attention-deficit hyperactivity disorder, unspecified type; F32.A Depression, unspecified; Z87.891 Personal history of nicotine dependence; I25.2 Old myocardial infarction; Z79.82 Long term (current) use of aspirin; Z79.02 Long term (current) use of antithrombotics/antiplatelets; Z88.2 Allergy status to sulfonamides; Z86.718 Personal history of other venous thrombosis and embolism; Z95.5 Presence of coronary angioplasty implant and graft; Z86.73 Personal history of transient ischemic attack (TIA), and cerebral infarction without residual deficits; Z86.16 Personal history of COVID-19
CPT/HCPCS: 36415; 71045; 71045-26; 71260; 71260-26; 80048; 80053; 80202; 81003; 82803; 83036; 83605; 83735; 85025; 87641; 87899; 93005; 93010; 93306; 96365; 96366; 96367; 96375; 99285; 99285-25; A9270-GY; J0456; J1644; J1940; J2270; J2543; J3010; J3370; J3475; J3490; J7030; J7050; J7620-GY; Q9967

== ENCOUNTER 2025-05-26 22:59 | Emergency (ER) | payer SELFPAY ==
[2025-05-26] MEDS ORDERED: Sodium Chloride 0.9% 10 ML Syringe FLUSH PRN (23:02)
[2025-05-26] MEDS ORDERED: Sodium Chloride 0.9% 2.5 ML Syringe FLUSH PRN (23:02)
[2025-05-26 23:08] LABS: BASOPHILS ABSOLUTE AUTO 0.03 K/uL (0.00-0.20); BASOPHILS PERCENT AUTO 0.2 % (0.0-1.0); EOSINOPHILS ABSOLUTE AUTO 0.05 K/uL (0.00-0.45); EOSINOPHILS PERCENT AUTO 0.4 % (0.0-6.0); IMMATURE GRAN ABSOLUTE AUTO 0.03 K/uL (0.00-0.05); IMMATURE GRAN PERCENT AUTO 0.2 % (0.0-0.4); LYMPHOCYTES ABSOLUTE AUTO 2.42 K/uL (1.00-4.80); LYMPHOCYTES PERCENT AUTO 17.6 % (24.0-44.0); MEAN PLATELET VOLUME 10.0 fL (9.4-12.4); MONOCYTES ABSOLUTE AUTO 1.11 K/uL (0.00-0.80); MONOCYTES PERCENT AUTO 8.1 % (0.0-8.0); NEUTROPHILS ABSOLUTE AUTO 10.12 K/uL (1.80-7.70); NEUTROPHILS PERCENT AUTO 73.5 % (41.0-71.0); NRBC ABSOLUTE 0.00 K/uL (0.00-0.02); NRBC PERCENT 0.0 /100WBC (0.0-0.2); PLATELET COUNT,PLT 196 K/uL (150-400); RED BLOOD CELL COUNT 5.28 M/uL (4.52-5.90); WHITE BLOOD CELL COUNT,WBC 13.76 K/uL (3.9-11.3)
[2025-05-26] MEDS: Nitroglycerin 2% Oint 1 GM UD Packet TOP ONE (23:09)
[2025-05-26] MEDS: LORazepam 2 MG/ML SDV IVPUSH ONE (23:09)
[2025-05-26 23:22] LABS: INR 1.0 (0.86-1.11); PTT,PARTIAL THROMBOPLSTIN TIME 25.7 SEC (23.9-30.7)
[2025-05-26 23:38] LABS: A/G RATIO 0.9 (0.9-1.6); ALANINE AMINOTRANSFERASE,ALT 60.0 IU/L (14-63); ASPARTATE AMNIOTRANSFERASE,AST 30.0 IU/L (15-37); BILIRUBIN TOTAL 0.9 mg/dL (0.2-1.0); BLOOD UREA NITROGEN,BUN 17.0 mg/dL (7.0-18.0); CARBON DIOXIDE,CO2 21.0 mmol/L (21.0-32.0); CHLORIDE,CL 100.0 mmol/L (98-107); CREATININE 1.7 mg/dL (0.8-1.3); EST CRCL DRUG DOSING (CG) 56.42 mL/min; GLUCOSE RANDOM 105.0 mg/dL (74-106); POTASSIUM,K 3.7 mmol/L (3.5-5.1); PRO B-TYPE NATRIUR PEPT,BNPPRO 14.0 pg/mL (0-125); PROTEIN TOTAL,TP 7.6 g/dL (6.4-8.2); SODIUM,NA 136.0 mmol/L (136-148)
[2025-05-26 23:41] LABS: ESTIMATED GFR 48.0 mL/min (>60)
[2025-05-27] MEDS: droPERidol 2.5 MG/ML SDV IVPUSH ONE (00:13)
== END 2025-05-27 02:50 | disposition home or self-care (01) ==
LOC: MW.ED 22:59
DX: R07.89 Other chest pain (principal); F43.23 Adjustment disorder with mixed anxiety and depressed mood; I10 Essential (primary) hypertension; I25.2 Old myocardial infarction; E78.00 Pure hypercholesterolemia, unspecified; Z95.5 Presence of coronary angioplasty implant and graft; K21.9 Gastro-esophageal reflux disease without esophagitis; Z86.73 Personal history of transient ischemic attack (TIA), and cerebral infarction without residual deficits; Z86.16 Personal history of COVID-19; Z88.2 Allergy status to sulfonamides; Z79.82 Long term (current) use of aspirin; Z79.899 Other long term (current) drug therapy; Z79.84 Long term (current) use of oral hypoglycemic drugs
CPT/HCPCS: 36415; 71045; 80053; 83880; 84484; 85025; 85610; 85730; 93005; 96374; 96375; 99285; A9270; J1790; J2060